=== PATIENT | male | born 1995 | race Caucasian/White ===

== ENCOUNTER 2016-08-24 15:30 | Outpatient (RCR) | payer BC ==
[2016-06-29 15:50] VITALS: BP 125/76
[2016-06-29] MEDS: VEDOLIZUMAB 300 MG/NS 250 ML IVPB IV SCH ×2 (16:40)
[2016-06-29 17:30] VITALS: BP 125/76
[2016-07-13] MEDS: VEDOLIZUMAB 300 MG/NS 250 ML IVPB IV SCH ×2 (16:20)
[2016-07-13 16:26] VITALS: BP 138/88
[~2016-08-24] VITALS: Ht 182.2 cm; Wt 92.1 kg
[~2016-08-24 15:30] MED LIST: BUDE3CAP5 PO; METH2.5T PO; OMEP40CA36 PO; PRD20T PO
[2016-08-24 17:01] VITALS: BP 122/75
== END 2016-09-27 | disposition home or self-care (01) ==
LOC: SDC 15:30
PROVIDERS: ATTEND Internal Medicine Gastroenterology
DX: K50.90 Crohn's disease, unspecified, without complications (principal)
CPT/HCPCS: 96365

== ENCOUNTER 2016-10-19 15:54 | Outpatient (RCR) | payer BC ==
[~2016-10-19] VITALS: Ht 182.2 cm; Wt 92.1 kg
--- OUTSIDE RECORDS SUMMARY | 2016-10-19 15:58 | XMS REPORT | Continuity of Care Document ---
Author Author [facility] Organization [facility] Address Unknown Phone Unavailable Care Team Providers Care Sweeper Driver Name Role Phone VISHAL LAMBERT DO PCP Insurance Providers Payer Name Policy Number Subscriber Name Relationship [facility] [id number] Alexx Jimenez 20 Father Advance Directives Directive Response Recorded Date/Time Advance Directives No 08/24/16 5:01pm Organ Donor No 08/24/16 5:01pm Resuscitation Status Full Code 08/24/16 5:01pm Problems No problem information available. Medications Current Home Medications Medication Dose Units Route Directions Days/Qty Instructions Start Date Methotrexate Sodium 2.5 Mg 5 Mg Oral Weekly 06/29/16 Prednisone 20 Mg 40 Mg Oral Daily 06/29/16 Budesonide 3 Mg 9 Mg Oral Daily 06/29/16 Omeprazole 40 Mg 40 Mg Oral Daily 06/29/16 Social History Social History Problem Response Recorded Date/Time Alcohol Use Rarely Uses 06/29/2016 4:15pm Recreational Drug Use No 06/29/2016 4:15pm Recent Foreign Travel No 06/29/2016 4:15pm Recent Infectious Disease Exposure No 06/29/2016 4:15pm Smoking Status Never a Smoker 06/29/2016 4:15pm Recent Hopitalizations No 06/29/2016 4:15pm Query Response Start Date Stop Date Smoking Status Never a Smoker Hospital Discharge Instructions No hospital discharge instructions. Plan of Care Prescriptions See Medication Section Functional Status No functional status results. Allergies, Adverse Reactions, Alerts No known allergies. Immunizations No immunization records. Vital Signs Acute Vital Signs Vital Response Date/Time Height 5 ft 11.75 in Weight 203 lb Body Mass Index 27.7 kg/m^2 Results No known relevant diagnostic tests, laboratory data and/or discharge summary. Procedures No known history of procedures. Encounters Encounter Location Arrival/Admit Date Discharge/Depart Date Attending Provider Discharged Recurring [facility] 08/24/16 3:30pm 11:59pm NICOLA PETERSON DO
[2016-10-19 16:00] VITALS: BP 116/82
[2016-10-19] MEDS ORDERED: VEDOLIZUMAB 300 MG/NS 250 ML IVPB IV SCH ×4 (16:15)
== END 2016-10-19 17:00 | disposition home or self-care (01) ==
LOC: SDC 15:54
PROVIDERS: ATTEND Internal Medicine Gastroenterology
DX: K50.90 Crohn's disease, unspecified, without complications (principal)
CPT/HCPCS: 96365

== ENCOUNTER → 2016-12-16 | Outpatient (CLI) | payer BC ==
[~2016-12-16] VITALS: Ht 182.2 cm; Wt 92.1 kg
[~2016-12-16] MED LIST changes: +VEDOLIZUMAB 300 MG/NS 250 ML IVPB IV SCH
[2016-12-16 14:30] VITALS: BP 126/92
== END ==
LOC: SDC 14:08
PROVIDERS: ATTEND Internal Medicine Gastroenterology
DX: K50.90 Crohn's disease, unspecified, without complications (principal)
CPT/HCPCS: 96365

== ENCOUNTER → 2017-02-16 | Outpatient (CLI) | payer BC ==
[~2017-02-16] VITALS: Ht 182.2 cm; Wt 92.1 kg
[2017-02-16 10:10] VITALS: BP 125/82
== END ==
LOC: SDC 10:06 → EDSTATUS 13:00
PROVIDERS: ATTEND Internal Medicine Gastroenterology
DX: K50.90 Crohn's disease, unspecified, without complications (principal)

== ENCOUNTER 2017-02-22 19:14 | Emergency (ER) | payer BC ==
[~2017-02-22] VITALS: Ht 182.9 cm; Wt 95.3 kg
[~2017-02-22 19:14] MED LIST changes: -VEDOLIZUMAB 300 MG/NS 250 ML IVPB IV SCH
[2017-02-22 19:47] LABS: BASOPHILS % (AUTO) 0 % (0-10); EOSINOPHILS # (AUTO) 0.2 10^3/uL (0.0-0.3); EOSINOPHILS % (AUTO) 2 % (0-10); LYMPHOCYTES # (AUTO) 1.6 X 10^3 (1.0-4.0); LYMPHOCYTES % (AUTO) 13 % (12-44); MEAN CORPUSCULAR HEMOGLOBIN 24 PG (25-34); MEAN CORPUSCULAR HGB CONC 33 G/DL (32-36); MEAN CORPUSCULAR VOLUME 75 FL (80-99); MONOCYTES # (AUTO) 0.8 X 10^3 (0.0-1.0); MONOCYTES % (AUTO) 7 % (0-12); NEUTROPHILS # (AUTO) 9.7 X 10^3 (1.8-7.8); NEUTROPHILS % (AUTO) 79 % (42-75); PLATELET COUNT 308 10^3/uL (130-400); RED BLOOD COUNT 5.63 10^6/uL (4.35-5.85); RED CELL DISTRIBUTION WIDTH 15.7 % (10.0-14.5); WHITE BLOOD COUNT 12.4 10^3/uL (4.3-11.0)
[2017-02-22 19:48] LABS: BILIRUBIN,URINE NEGATIVE (NEGATIVE); KETONES,URINE NEGATIVE (NEGATIVE); LEUKOCYTE ESTERASE ,URINE 1+ (NEGATIVE); NITRITE,URINE NEGATIVE (NEGATIVE); PH,URINE 6 (5-9); PROTEIN,URINE 1+ (NEGATIVE); UROBILINOGEN,URINE 1 MG/DL (NORMAL)
[2017-02-22 19:59] LABS: WBC,URINE 0-2 /HPF
[2017-02-22 20:05] LABS: ALANINE AMINOTRANSFERASE 43 U/L (0-55); ALBUMIN 4.2 G/DL (3.2-4.5); ANION GAP 11 MMOL/L (5-14); ASPARTATE AMINO TRANSFERASE 22 U/L (5-34); BILIRUBIN,TOTAL 0.5 MG/DL (0.1-1.0); BLOOD UREA NITROGEN 14 MG/DL (7-18); BUN/CREATININE RATIO 12; CALCIUM 9.8 MG/DL (8.5-10.1); CARBON DIOXIDE 26 MMOL/L (21-32); CHLORIDE 104 MMOL/L (98-107); CREATININE SERUM 1.16 MG/DL (0.60-1.30); GFR ESTIMATED > 60; GLUCOSE 103 MG/DL (70-105); POTASSIUM 3.9 MMOL/L (3.6-5.0); SODIUM 141 MMOL/L (135-145); TOTAL PROTEIN 7.9 G/DL (6.4-8.2)
[2017-02-22] MEDS ORDERED: IOHEXOL 350 MG/ML 100 ML (OMNIPAQUE 350) VIAL IV ONE (20:45)
[2017-02-22] MEDS ORDERED: NS 100 ML (IVPB) BAG IV ONE (20:45)
--- NOTE | 2017-02-22 21:53 | Diagnostic Imaging Report ---
PROCEDURE: CT abdomen and pelvis with contrast, rule out appendicitis. TECHNIQUE: Multiple contiguous axial images were obtained through the abdomen and pelvis after the administration of intravenous contrast. INDICATION: Left lower quadrant pain for 3 days. History of Crohn's. Previous anal fistula. COMPARISON with 04/27/2016. FINDINGS: The lung bases are clear. The liver appears normal. The gallbladder and bile ducts are normal. The pancreas is normal. The spleen is normal. The adrenal glands appear normal. The kidneys show symmetrical nephrogram effect. No hydronephrosis. Could not exclude small renal calculi as a noncontrasted study was not obtained. The aorta and abdominal vessels appear normal. The stomach is not distended. Small bowel is not dilated. There is noted long segment stenosis with thickening of the terminal ileum involving at least the distal 24-36 inches. There is diffuse edema surrounding the terminal ileum within the adjacent mesentery. There is no loculated abscess. No free air or free fluid. The colon shows normal stool and gas pattern. There are a few diverticula in the sigmoid colon. No intra-abdominal adenopathy of pathologic size. No evidence of the perirectal fistula with mesorectal fat planes appearing normal. IMPRESSION: The findings are consistent with diffuse Crohn's disease of the ileum. The most severe change is noted in the terminal ileum with thickening of the bowel wall and considerable adjacent mesenteric edema. No evidence of obstruction at this time. No free air or free fluid. There is mesenteric adenopathy again noted, as reported previously, though this is less prominent on today's exam. Dictated by: Dictated on workstation # [id number]
[2017-02-22] MEDS ORDERED: metroNIDAZOLE 500 MG (FLAGYL) TAB PO ONE (22:15)
[2017-02-22] MEDS ORDERED: CIPROFLOXACIN 500 MG (CIPRO) TABLET PO ONE (22:15)
[2017-02-22] MEDS ORDERED: methylPREDNISolone 125 MG (Solu-MEDROL) VIAL IVP ONE (22:15)
[2017-02-22] MEDS ORDERED: PRD20T PO (22:26)
[2017-02-22] MEDS ORDERED: CIPR-225 PO (22:26)
[2017-02-22] MEDS ORDERED: HYDR-3812 PO (22:26)
[2017-02-22] MEDS ORDERED: METR500T PO (22:26)
--- NOTE | 2017-02-22 22:27 | ED Abdominal Pain ---
General Chief Complaint: Abdominal/GI Problems Stated Complaint: RLQ PAIN Nursing Triage Note: RLQ ABDOMINAL PAIN Sepsis Screen: No Definite Risk Source of Information: Patient Exam Limitations: No Limitations History of Present Illness Time Seen By Provider: 19:18 Initial Comments Patient presents to the emergency room with complaints of right lower quadrant pain since February 19. He does have a history of Crohn's disease. He has chronic diarrhea associated with his Crohn's. He denies any fever. He does have some pain with walking, riding his motorcycle, and sneezing. Pain is mild at rest but is 9/10 with palpation. He has a past medical history of anal fistula. Dr. Lambert is his primary care provider. Dr. Andres is his website designer. Allergies and Home Medications Allergies Coded Allergies: No Known Drug Allergies (Unverified , 06/29/16) Home Medications Budesonide 3 Mg Capdr...er, 9 MG PO DAILY, (Reported) Ciprofloxacin HCl 500 Mg Tablet, 500 MG PO BID, #14 Prescribed by: JIAN KRAMER on 02/22/176 Hydrocodone/Acetaminophen 1 Each Tablet, 1 EACH PO Q4H PRN for PAIN, #10 Prescribed by: JIAN KRAMER on 02/22/176 Methotrexate Sodium 2.5 Mg Tablet, 5 MG PO WEEK, (Reported) Metronidazole 500 Mg Tablet, 500 MG PO TID, #20 Prescribed by: JIAN KRAMER on 02/22/176 Omeprazole 40 Mg Capsule.dr, 40 MG PO DAILY, (Reported) Prednisone 20 Mg Tab, 60 MG PO DAILY, #15 Prescribed by: JIAN KRAMER on 02/22/17 2226 Review of Systems Constitutional: no symptoms reported EENTM: No Symptoms Reported Respiratory: No Symptoms Reported Cardiovascular: No Symptoms Reported Gastrointestinal: See HPI Genitourinary: No Symptoms Reported Musculoskeletal: no symptoms reported Skin: no symptoms reported Psychiatric/Neurological: No Symptoms Reported Endocrine: No Symptoms Reported Past Rtdtfyp-Pymxno-Tqzhuy Hx Patient Social History Alcohol Use: Denies Use Recreational Drug Use: No Smoking Status: Never a Smoker 2nd Hand Smoke Exposure: No Recent Foreign Travel: No Contact w/Someone Who Travel: No Recent Infectious Disease Expo: No Recent Hopitalizations: No Immunizations Up To Date Tetanus Booster (TDap): Unknown Seasonal Allergies Seasonal Allergies: No Surgeries HX Surgeries: Yes (anal fistula) Respiratory Hx Respiratory Disorders: No Cardiovascular Hx Cardiac Disorders: No Neurological Hx Neurological Disorders: No Reproductive System Hx Reproductive Disorders: No Genitourinary Hx Genitourinary Disorders: No Gastrointestinal Hx Gastrointestinal Disorders: Yes Gastrointestinal Disorders: Crohns Disease Musculoskeletal Hx Musculoskeletal Disorders: No Endocrine Hx Endocrine Disorders: No HEENT HX ENT Disorders: No Cancer Hx Cancer: No Psychosocial Hx Psychiatric Problems: No Integumentary HX Skin/Integumentary Disorder: No Blood Transfusions Hx Blood Disorders: No Physical Exam Vital Signs VS - Last 72 Hours, by Label 02/22/17 02/22/17 19:30 22:33 Temp 97.7 98.1 Pulse 85 72 Resp 18 18 B/P (MAP) 147/87 Pulse Ox 97 100 O2 Delivery Room Air Capillary Refill : Less Than 3 Seconds General Appearance: WD/WN, no apparent distress HEENT: PERRL/EOMI, normal ENT inspection, pharynx normal Neck: normal inspection Respiratory: lungs clear, normal breath sounds, no respiratory distress, no accessory muscle use Cardiovascular: regular rate, rhythm, no edema, no murmur Gastrointestinal: normal bowel sounds, soft, rebound, tenderness (right lower quadrant), other (positive psoas and Rovsing's) Extremities: normal inspection, no pedal edema Back: normal inspection, no CVA tenderness 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, no motor/sensory deficits, alert, normal mood/affect, oriented x 3 Skin: normal color, warm/dry Progress/Results/Core Measures Results/Orders Lab Results Laboratory Tests Test 02/22/17 19:35 02/22/17 19:40 Range/Units Urine Color YELLOW Urine Clarity CLEAR Urine pH 6 5-9 Urine Specific [place] 1.025 H 1.016-1.022 Urine Protein 1+ H NEGATIVE Urine Glucose (UA) NEGATIVE NEGATIVE Urine Ketones NEGATIVE NEGATIVE Urine Nitrite NEGATIVE NEGATIVE Urine Bilirubin NEGATIVE NEGATIVE Urine Urobilinogen 1 NORMAL MG/DL Urine Leukocyte Esterase 1+ H NEGATIVE Urine RBC (Auto) NEGATIVE NEGATIVE Urine RBC NONE /HPF Urine WBC 0-2 /HPF Urine Crystals NONE /LPF Urine Bacteria NONE /HPF Urine Casts NONE /LPF Urine Mucus SMALL H /LPF Urine Culture Indicated NO White Blood Count 12.4 H 4.3-11.0 10^3/uL Red Blood Count 5.63 4.35-5.85 10^6/uL Hemoglobin 13.7 13.3-17.7 G/DL Hematocrit 42 40-54 % Mean Corpuscular Volume 75 L 80-99 FL Mean Corpuscular Hemoglobin 24 L 25-34 PG Mean Corpuscular Hemoglobin Concent 33 32-36 G/DL Red Cell Distribution Width 15.7 H 10.0-14.5 % Platelet Count 308 130-400 10^3/uL Mean Platelet Volume 10.0 7.4-10.4 FL Neutrophils (%) (Auto) 79 H 42-75 % Lymphocytes (%) (Auto) 13 12-44 % Monocytes (%) (Auto) 7 0-12 % Eosinophils (%) (Auto) 2 0-10 % Basophils (%) (Auto) 0 0-10 % Neutrophils # (Auto) 9.7 H 1.8-7.8 X 10^3 Lymphocytes # (Auto) 1.6 1.0-4.0 X 10^3 Monocytes # (Auto) 0.8 0.0-1.0 X 10^3 Eosinophils # (Auto) 0.2 0.0-0.3 10^3/uL Basophils # (Auto) 0.0 0.0-0.1 10^3/uL Sodium Level 141 135-145 MMOL/L Potassium Level 3.9 3.6-5.0 MMOL/L Chloride Level 104 98-107 MMOL/L Carbon Dioxide Level 26 21-32 MMOL/L Anion Gap 11 5-14 MMOL/L Blood Urea Nitrogen 14 7-18 MG/DL Creatinine 1.16 0.60-1.30 MG/DL Estimat Glomerular Filtration Rate > 60 BUN/Creatinine Ratio 12 Glucose Level 103 70-105 MG/DL Calcium Level 9.8 8.5-10.1 MG/DL Total Bilirubin 0.5 0.1-1.0 MG/DL Aspartate Amino Transf (AST/SGOT) 22 5-34 U/L Alanine Aminotransferase (ALT/SGPT) 43 0-55 U/L Alkaline Phosphatase 68 40-136 U/L Total Protein 7.9 6.4-8.2 G/DL Albumin 4.2 3.2-4.5 G/DL My Orders Orders - JIAN SOTO MD Cbc With Automated Diff (6/5/17 19:18) Comprehensive Metabolic Panel (02/22/17 19:18) Ua Culture If Indicated (02/22/17 19:18) Saline Lock/Iv-Start (02/22/17 19:18) Ct Abd/Pelv W (Appendicitis) (02/22/17 20:33) Iohexol Injection (Omnipaque 350 Mg/Ml 1 (02/22/17 20:45) Ns (Ivpb) (Sodium Chloride 0.9% Ivpb Bag (02/22/17 20:45) Methylprednisolone Sod Succ (Solu-Medrol (02/22/17 22:15) Ciprofloxacin Tablet (Cipro Tablet) (02/22/17 22:15) Metronidazole Tablet (Flagyl Tablet) (02/22/17 22:15) Medications Given in ED Current Medications Medications Dose Ordered Sig/Sukumar Route Start Time Stop Time Status Last Admin Dose Admin Ciprofloxacin 500 mg ONCE ONCE PO 02/22/17 22:15 02/22/17 22:16 DC 02/22/17 22:14 500 MG Iohexol 100 ml ONCE ONCE IV 02/22/17 20:45 02/22/17 21:29 DC 02/22/17 20:48 100 ML Methylprednisolone Sodium Succinate 125 mg ONCE ONCE IVP 02/22/17 22:15 02/22/17 22:16 DC 02/22/17 22:15 125 MG Metronidazole 500 mg ONCE ONCE PO 02/22/17 22:15 02/22/17 22:16 DC 02/22/17 22:14 500 MG Sodium Chloride 100 ml ONCE ONCE IV 02/22/17 20:45 02/22/17 21:29 DC 02/22/17 20:48 100 ML Vital Signs/I&O Vital Sign - Last 12Hours 02/22/17 02/22/17 19:30 22:33 Temp 97.7 98.1 Pulse 85 72 Resp 18 18 B/P (MAP) 147/87 Pulse Ox 97 100 O2 Delivery Room Air Blood Pressure Mean: 107 Progress Note : Progress Note Patient was started on Solu-Medrol and given oral doses of Cipro and Flagyl to initiate treatment of acute Crohn's disease exacerbation. Follow-up with his website designer in the morning was recommended. Diagnostic Imaging Diagonstic Imaging: CT Plain Films/CT/US/NM/MRI: abdomen, pelvis Comments CT abdomen and pelvis viewed by me and report reviewed. See report below: NAME: MICHELLE JIMENEZ [facility] REC#: [id number] PT STATUS: REG ER : 1995 PHYSICIAN: JIAN SOTO MD ADMIT DATE: 02/22/17/ER Signed Date of Exam: 02/22/17 CT ABD/PELV W (APPENDICITIS) PROCEDURE: CT abdomen and pelvis with contrast, rule out appendicitis. TECHNIQUE: Multiple contiguous axial images were obtained through the abdomen and pelvis after the administration of intravenous contrast. INDICATION: Left lower quadrant pain for 3 days. History of Crohn's. Previous anal fistula. COMPARISON with 04/27/2016. FINDINGS: The lung bases are clear. The liver appears normal. The gallbladder and bile ducts are normal. The pancreas is normal. The spleen is normal. The adrenal glands appear normal. The kidneys show symmetrical nephrogram effect. No hydronephrosis. Could not exclude small renal calculi as a noncontrasted study was not obtained. The aorta and abdominal vessels appear normal. The stomach is not distended. Small bowel is not dilated. There is noted long segment stenosis with thickening of the terminal ileum involving at least the distal 24-36 inches. There is diffuse edema surrounding the terminal ileum within the adjacent mesentery. There is no loculated abscess. No free air or free fluid. The colon shows normal stool and gas pattern. There are a few diverticula in the sigmoid colon. No intra-abdominal adenopathy of pathologic size. No evidence of the perirectal fistula with mesorectal fat planes appearing normal. IMPRESSION: The findings are consistent with diffuse Crohn's disease of the ileum. The most severe change is noted in the terminal ileum with thickening of the bowel wall and considerable adjacent mesenteric edema. No evidence of obstruction at this time. No free air or free fluid. There is mesenteric adenopathy again noted, as reported previously, though this is less prominent on today's exam. Dictated by: Dictated on workstation # [id number] Dict: 02/22/172099 Trans: 02/22/172211 Interpreted by: AUTUMN URENA MD Electronically signed by: AUTUMN URENA MD 02/22/172211 Departure Impression Impression: Primary Impression: Exacerbation of Crohn's disease of small intestine Qualified Codes: K50.019 - Crohn's disease of small intestine with unspecified complications Additional Impression: Right lower quadrant pain Disposition: 01 HOME, SELF-CARE Condition: Improved Departure-Patient Inst. Decision time for Depature: 22:00 Referrals: VISHAL LAMBERT DO (PCP/Family) Primary Care Physician Patient Instructions: Clear Liquid Diet, Crohn's Disease (DC) Add. Discharge Instructions: Use your medications as prescribed. Follow-up with Dr. Andres as soon as possible. Dr. Andres may want to put you on a longer course of prednisone taper. Please ask about this when you call his office. Return to care if symptoms worsen. Clear liquid diet for the next 24 hours. Then gradually advance your diet with small quantities of bland food as tolerated. All discharge instructions reviewed with patient and/or family. Voiced understanding. Scripts Hydrocodone/Acetaminophen (Hydrocodon -Acetaminophen 5-325) 1 Each Tablet 1 EACH PO Q4H Y for PAIN, #10 TAB Prov: JIAN SOTO MD 02/22/17 Metronidazole (Flagyl) 500 Mg Tablet 500 MG PO TID, #20 TAB Prov: JIAN SOTO MD 02/22/17 Ciprofloxacin HCl (Cipro) 500 Mg Tablet 500 MG PO BID, #14 TAB Prov: JIAN SOTO MD 02/22/17 Prednisone (Prednisone) 20 Mg Tab 60 MG PO DAILY, #15 TAB Prov: JIAN SOTO MD 02/22/17 Copy Copies To 1: VISHAL LAMBERT JOSHUA T MD Feb 22, 2017 22:27
[2017-02-22 22:33] VITALS: BP 132/71
== END 2017-02-22 22:30 | disposition home or self-care (01) ==
LOC: EDUNIT# 19:14 → ER 19:17
DX: K50.00 Crohn's disease of small intestine without complications (principal); Z87.19 Personal history of other diseases of the digestive system
CPT/HCPCS: 36415; 74177; 80053; 81000; 85025

== ENCOUNTER → 2017-04-13 | Outpatient (CLI) | payer BC ==
[~2017-04-13] VITALS: Ht 182.9 cm; Wt 95.3 kg
[~2017-04-13] MED LIST changes: +CIPR-225 PO; +HYDR-3812 PO; +METR500T PO; +SULF1TAB35 PO; +VEDOLIZUMAB 300 MG/NS 250 ML IVPB IV SCH
[2017-04-13 15:55] VITALS: BP 123/74
== END ==
LOC: SDC 15:49
PROVIDERS: ATTEND Internal Medicine Gastroenterology
DX: K50.90 Crohn's disease, unspecified, without complications (principal)
CPT/HCPCS: 96365

== ENCOUNTER → 2017-06-11 | Outpatient (CLI) | payer BC ==
[~2017-06-11] VITALS: Ht 182.9 cm; Wt 95.3 kg
--- OUTSIDE RECORDS SUMMARY | 2017-06-11 15:43 | XMS REPORT | Continuity of Care Document ---
Demographics Preferred Language Unknown Marital Status Unknown Congregational Affiliation Unknown Race Unknown Ethnic Group Unknown Author Author [facility] Address Unknown Phone Unavailable Allergies Medications Problems Date Dx Coded Attending Type Code Diagnosis Diagnosed By 04/06/2012 V03.89 MENINGOCOCCAL DX 11/14/2012 V04.89 GARDASIL (HPV) DX 11/14/2012 V05.3 HEP A (PED/ADOL 2-DOSE) DX 11/14/2012 V06.1 TDAP DX Procedures Results Encounters ACCT No. Visit Date/Time Discharge Status Pt. Type Provider Facility Loc./Unit Complaint [id number] 11/14/2012 15:27:00 11/14/2012 23: 59:59 CLS Outpatient [id number] 11/14/2012 16:10:05 RECURRING
[2017-06-11 16:15] VITALS: BP 121/82
[2017-06-11 17:00] VITALS: BP 121/82
== END | disposition home or self-care (01) ==
LOC: SDC 15:40 → EDSTATUS 06-16 09:05
PROVIDERS: ATTEND Internal Medicine Gastroenterology
DX: K50.90 Crohn's disease, unspecified, without complications (principal)
CPT/HCPCS: 96365

== ENCOUNTER 2017-06-22 19:41 | Emergency (ER) | payer BC ==
[~2017-06-22] VITALS: Ht 182.9 cm; Wt 91.2 kg
[~2017-06-22 19:41] MED LIST changes: -SULF1TAB35 PO; -VEDOLIZUMAB 300 MG/NS 250 ML IVPB IV SCH
--- OUTSIDE RECORDS SUMMARY | 2017-06-22 19:47 | XMS REPORT | Continuity of Care Document ---
Demographics Preferred Language Unknown Marital Status Unknown Pentecostalism Affiliation Unknown Race Unknown Ethnic Group Unknown Author Author [facility] Address Unknown Phone Unavailable Allergies Medications Problems Date Dx Coded Attending Type Code Diagnosis Diagnosed By 04/06/2012 V03.89 MENINGOCOCCAL DX 11/14/2012 V04.89 GARDASIL (HPV) DX 11/14/2012 V05.3 HEP A (PED/ADOL 2-DOSE) DX 11/14/2012 V06.1 TDAP DX Procedures Results Encounters ACCT No. Visit Date/Time Discharge Status Pt. Type Provider Facility Loc./Unit Complaint [id number] 11/14/2012 15:27:00 11/14/2012 23: 59:59 CLS Outpatient [id number] 11/14/2012 16:10:05 RECURRING
[2017-06-22 19:49] VITALS: BP 144/85
[2017-06-22] MEDS ORDERED: LIDOCAINE/EPI 2% 1:100,00 (XYLOCAINE) 20 ML VIAL INJ ONE (20:00)
[2017-06-22] MEDS ORDERED: RX-TRIMETH/SULFA. 160-800 MG (BACTRIM DS) TAB PPK#2 PO STA (21:57)
[2017-06-22] MEDS ORDERED: TETANUS,DIPTH,PERTUSS P/F (BOOSTRIX) 0.5 ML VIAL IM ONE (22:00)
[2017-06-22] MEDS ORDERED: SULF1TAB35 PO (22:01)
--- NOTE | 2017-06-22 22:01 | ED Upper Extremity ---
General Chief Complaint: Laceration Stated Complaint: LEFT ARM INJ Source: patient History of Present Illness Time seen by provider: 19:50 Initial Comments PT ARRIVES VIA POV FROM HOME PT STATES HE WAS CARRYING [place] + TILE AND A TILE BROKE AND CUT HIS LEFT ARM --MEDIAL ASPECT, NEAR AC SPACE NO PARESTHESIAS OR MOTOR DEFICITS PT IS RIGHT HANDED NO PRIOR INJURY TO THIS ARM Allergies and Home Medications Allergies Coded Allergies: No Known Drug Allergies (Unverified , 06/29/16) Home Medications Budesonide 3 Mg Capdr...er, 9 MG PO DAILY, (Reported) Ciprofloxacin HCl 500 Mg Tablet, 500 MG PO BID, #14 Prescribed by: JIAN KRAMER on 02/22/172225 Hydrocodone/Acetaminophen 1 Each Tablet, 1 EACH PO Q4H PRN for PAIN, #10 Prescribed by: JIAN KRAMER on 02/22/176 Methotrexate Sodium 2.5 Mg Tablet, 5 MG PO WEEK, (Reported) Metronidazole 500 Mg Tablet, 500 MG PO TID, #20 Prescribed by: JIAN KRAMER on 02/22/172225 Omeprazole 40 Mg Capsule.dr, 40 MG PO DAILY, (Reported) Prednisone 20 Mg Tab, 60 MG PO DAILY, #15 Prescribed by: JIAN KRAMER on 02/22/176 Sulfamethoxazole/Trimethoprim 1 Each Tablet, 1 EACH PO BID, #20 Prescribed by: LATIA WHITE on 06/22/171 Constitutional: no symptoms reported Musculoskeletal: see HPI Skin: see HPI Psychiatric/Neurological: No Symptoms Reported Past Jhjpsvg-Gzqumz-Qofhis Hx Patient Social History 2nd Hand Smoke Exposure: No Recent Foreign Travel: No Contact w/Someone Who Travel: No Recent Hopitalizations: No Immunizations Up To Date Tetanus Booster (TDap): More than 5yrs Seasonal Allergies Seasonal Allergies: No Surgeries History of Surgeries: Yes ("FISTULA'S TIED OFF."; COLONOSCOPIES) Respiratory History of Respiratory Disorde: No Cardiovascular History of Cardiac Disorders: No Neurological History of Neurological Disord: No Reproductive System Hx Reproductive Disorders: No Genitourinary History of Genitourinary Disor: No Gastrointestinal History of Gastrointestinal Di: Yes (RECTAL FISTULA VS FISSURE) Gastrointestinal Disorders: Crohns Disease Musculoskeletal History of Musculoskeletal Dis: No Endocrine History of Endocrine Disorders: No HEENT History of HEENT Disorders: No Cancer History of Cancer: No Psychosocial History of Psychiatric Problem: No Integumentary History of Skin or Integumenta: No Blood Transfusions History of Blood Disorders: No Physical Exam Vital Signs Capillary Refill : General Appearance: WD/WN, no apparent distress Shoulder: normal inspection Elbow/Forearm: Left (SUPERFICIAL SUB Q LACERATION TO MEDIAL ASPECT OF LEFT FOREARM, NEAR AC SPACE, SUPERFICIAL ABRASIONS ADJACENT TO LACERATION. 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, no motor/sensory deficits, alert, normal mood/affect, oriented x 3 Skin: normal color, warm/dry, other (LACERATION NOTED ABOVE) Laceration Repair : Other Wound Location LEFT FOREARM Wound Length (cm): 10 Wound's Depth, Shape: superficial, irregular, sub Q Wound Explored: no foreign body removed Irrigated w/ Saline (ccs): 1000 Betadine Prep?: No (BETASEPT) Anesthesia: Lidocaine w/ Epi (2%) Staple Repair: Stapler 35W (#18) Sterile Dressing Applied?: Yes Progress/Results/Core Measures Results/Orders My Orders Orders - LATIA WHITE DO Lidocaine/Epi 2% 1:100,000 (Xylocaine/Ep (06/22/17 20:00) Dipht,Pertuss(Acell),Tet Adult (Boostrix (06/22/17 22:00) Rx-Trimeth/Sulfameth Ds Tab (Rx-Bactrim/ (06/22/17 21:57) Wound Dressing-Ed (06/22/17 21:57) Medications Given in ED Current Medications Medications Dose Ordered Sig/Sukumar Route Start Time Stop Time Status Last Admin Dose Admin Diphtheria/ Tetanus/Acell Pertussis 0.5 ml ONCE ONCE IM 06/22/17 22:00 06/22/17 22:01 DC 06/22/17 22:16 0.5 ML Lidocaine/ Epinephrine 20 ml ONCE ONCE INJ 06/22/17 20:00 06/22/17 20:01 DC 06/22/17 20:09 20 ML Departure Impression Impression: Primary Impression: LACERATION OF LEFT ARM Additional Impression: Jrlxhtgdxo-qhuuyzsyf-bctjubd (DPT) vaccination administered at current visit Disposition: HOME, SELF-CARE Condition: Stable Departure-Patient Inst. Referrals: VISHAL LAMBERT DO (PCP/Family) Primary Care Physician Patient Instructions: Laceration Repair With Vidal (DC), Diphtheria and Tetanus Toxoids, and Acellular Pertussis Vaccine Add. Discharge Instructions: CLEAN WOUND TWICE A DAY WITH ANTIBACTERIAL SOAP AND WATER, OTHERWISE KEEP CLEAN AND DRY TYLENOL AND MOTRIN NEEDED FOR PAIN FOLLOW UP IN 10-14 DAYS FOR STAPLE REMOVAL--RETURN TO ER FOR REMOVAL All discharge instructions reviewed with patient and/or family. Voiced understanding. Scripts Sulfamethoxazole/Trimethoprim (Bactrim Ds Tablet) 1 Each Tablet 1 EACH PO BID, #20 TAB Prov: LATIA WHITE DO 06/22/17 Images Extremities-Upper 1 - Laceration LATIA WHITE DO Jun 22, 2017 22:01
== END 2017-06-22 22:27 | disposition home or self-care (01) ==
LOC: EDUNIT# 19:41 → ER 19:42
DX: Z23 Encounter for immunization; W26.8XXA Contact with other sharp object(s), not elsewhere classified, initial encounter; Z87.19 Personal history of other diseases of the digestive system; S51.812A Laceration without foreign body of left forearm, initial encounter
CPT/HCPCS: 12015; 90471; 90715

== ENCOUNTER → 2017-08-20 | Outpatient (CLI) | payer BC ==
[~2017-08-20] VITALS: Ht 182.9 cm; Wt 91.2 kg
[~2017-08-20] MED LIST changes: +SULF1TAB35 PO; +VEDOLIZUMAB 300 MG/NS 250 ML IVPB IV SCH
[2017-08-20 16:54] VITALS: BP 130/89
[2017-08-20 17:10] VITALS: BP 130/89
[2017-08-20 17:19] VITALS: BP 130/89
[2017-08-20 17:21] VITALS: BP 130/89
[2017-08-20 17:22] VITALS: BP 130/89
== END ==
LOC: SDC 16:04
PROVIDERS: ATTEND Internal Medicine Gastroenterology
DX: K50.90 Crohn's disease, unspecified, without complications (principal)

== ENCOUNTER → 2017-10-25 | Outpatient (CLI) | payer BC ==
[~2017-10-25] VITALS: Ht 182.9 cm; Wt 90.7 kg
[~2017-10-25] MED LIST changes: +ACHD5005 PO; -HYDR-3812 PO
[2017-10-25 16:46] VITALS: BP 127/81
[2017-10-25 17:17] VITALS: BP 127/81
== END ==
LOC: SDC 15:42
PROVIDERS: ATTEND Internal Medicine Gastroenterology
DX: K50.90 Crohn's disease, unspecified, without complications (principal)
CPT/HCPCS: 96365

== ENCOUNTER 2018-02-18 15:36 | Outpatient (RCR) | payer BC ==
[2017-12-24] MEDS: VEDOLIZUMAB 300 MG/NS 250 ML IVPB IV SCH ×2 (16:40)
[2017-12-24 17:21] VITALS: BP 129/78
[~2018-02-18] VITALS: Ht 182.9 cm; Wt 90.7 kg
[~2018-02-18 15:36] MED LIST changes: -METH2.5T PO; +MTX2.5T PO; -VEDOLIZUMAB 300 MG/NS 250 ML IVPB IV SCH
[2018-02-18] MEDS: VEDOLIZUMAB 300 MG/NS 250 ML IVPB IV SCH ×2 (16:07)
[2018-02-18 16:44] VITALS: BP 141/86
== END 2018-03-24 | disposition home or self-care (01) ==
LOC: SDC 15:36
PROVIDERS: ATTEND Internal Medicine Gastroenterology
DX: K50.90 Crohn's disease, unspecified, without complications (principal)
CPT/HCPCS: 96365

== ENCOUNTER 2018-04-15 16:00 | Outpatient (RCR) | payer BC ==
[~2018-04-15] VITALS: Ht 182.9 cm; Wt 90.7 kg
[2018-04-15] MEDS ORDERED: VEDOLIZUMAB 300 MG/NS 250 ML IVPB IV ONE ×2 (16:30)
[2018-04-15 17:20] VITALS: BP 136/86
== END 2018-04-19 | disposition home or self-care (01) ==
LOC: SDC 16:00
PROVIDERS: ATTEND Internal Medicine Gastroenterology
DX: K50.90 Crohn's disease, unspecified, without complications (principal)
CPT/HCPCS: 96365

== ENCOUNTER → 2018-06-10 | Outpatient (CLI) | payer BC ==
[~2018-06-10] VITALS: Ht 182.9 cm; Wt 90.7 kg
[~2018-06-10] MED LIST changes: +VEDOLIZUMAB 300 MG/NS 250 ML IVPB IV SCH
[2018-06-10 16:56] VITALS: BP 118/71
[2018-06-10 17:10] VITALS: BP 118/71
== END ==
LOC: SDC 15:54
PROVIDERS: ATTEND Internal Medicine Gastroenterology
DX: K50.90 Crohn's disease, unspecified, without complications (principal)

== ENCOUNTER → 2018-08-12 | Day surgery (SDC) | payer BC ==
[~2018-08-12] VITALS: Ht 182.9 cm; Wt 90.7 kg
[2018-08-12 16:51] VITALS: BP 131/86
== END | disposition home or self-care (01) ==
LOC: SDC 15:18
PROVIDERS: ATTEND Internal Medicine Gastroenterology
DX: K50.90 Crohn's disease, unspecified, without complications (principal)
CPT/HCPCS: 96365; 96374; J3380

== ENCOUNTER → 2018-10-10 | Outpatient (CLI) | payer BC ==
[~2018-10-10] VITALS: Ht 182.9 cm; Wt 90.7 kg
[2018-10-10 16:30] VITALS: BP 134/78
== END ==
LOC: SDC 15:15
PROVIDERS: ATTEND Internal Medicine Gastroenterology
DX: K50.90 Crohn's disease, unspecified, without complications (principal)
CPT/HCPCS: J3380

== ENCOUNTER → 2018-12-09 | Outpatient (CLI) | payer BC, OTHER ==
[~2018-12-09] VITALS: Ht 182.9 cm; Wt 90.7 kg
[2018-12-09 16:39] VITALS: BP 121/81
== END ==
LOC: SDC 15:17
PROVIDERS: ATTEND Internal Medicine Gastroenterology
DX: K50.90 Crohn's disease, unspecified, without complications (principal)
CPT/HCPCS: 96365; J3380

== ENCOUNTER → 2019-02-03 | Outpatient (CLI) | payer BC, OTHER ==
[~2019-02-03] VITALS: Ht 182.9 cm; Wt 90.7 kg
[2019-02-03 15:51] VITALS: BP 122/84
== END ==
LOC: SDC 14:40
PROVIDERS: ATTEND Internal Medicine Gastroenterology
DX: K50.90 Crohn's disease, unspecified, without complications (principal)
CPT/HCPCS: 96365; J3380

== ENCOUNTER → 2019-04-28 | Outpatient (CLI) | payer BC ==
[~2019-04-28] VITALS: Ht 182.9 cm; Wt 90.7 kg
[2019-04-28 15:25] VITALS: BP 128/70
== END ==
LOC: SDC 15:10
PROVIDERS: ATTEND Internal Medicine Gastroenterology
DX: K50.90 Crohn's disease, unspecified, without complications (principal)
CPT/HCPCS: 96365; J3380

== ENCOUNTER → 2019-06-23 | Outpatient (CLI) | payer BC ==
[2019-06-23 16:35] VITALS: BP 124/82
== END ==
LOC: SDC 15:17
PROVIDERS: ATTEND Internal Medicine Gastroenterology
DX: Z51.81 Encounter for therapeutic drug level monitoring (principal)
CPT/HCPCS: J3380

== ENCOUNTER 2020-04-03 18:37 | Emergency (ER) | payer BC ==
[~2020-04-03] VITALS: Ht 182.9 cm; Wt 108.9 kg
[~2020-04-03 18:37] MED LIST changes: +OMEP40CA27 PO; -OMEP40CA36 PO; -VEDOLIZUMAB 300 MG/NS 250 ML IVPB IV SCH
--- NOTE | 2020-04-03 18:48 | ED Abdominal Pain ---
General Chief Complaint: Abdominal/GI Problems Stated Complaint: RLQ PAIN, FEVER Nursing Triage Note: PT AMBULATE TO ROOM 06 WITH C/O RUQ ABD PAIN. Sepsis Screen: No Definite Risk Source of Information: Patient Exam Limitations: No Limitations History of Present Illness Date Seen by Provider: Apr 03, 2020 Time Seen by Provider: 18:48 Initial Comments To ER with right-sided abdominal pain for the past 2 weeks. History of Crohn's. Not currently on any medication for that. He states he went into remission about 10 months ago, did an additional 6 months of medication for it and his mosaic technician (Dr. Andres) took him off of it after 6 months of remission. He has had no bloody stools. No nausea vomiting or fevers until today. At that time he developed fevers up to 101 and pain that was sharper and more specific to the right lower abdomen. Timing/Duration: Getting Worse, Intermittent Severity/Quality: Moderate Location: RUQ, RLQ Radiation: No Radiation Activities at Onset: None Allergies and Home Medications Allergies Coded Allergies: No Known Drug Allergies (Unverified , 06/29/16) Home Medications Budesonide 3 Mg Capdr...er, 9 MG PO DAILY, (Reported) Ciprofloxacin HCl 500 Mg Tablet, 500 MG PO BID Prescribed by: JIAN KRAMER on 02/22/172225 Hydrocodone Bit/Acetaminophen 1 Each Tablet, 1 EACH PO Q4H PRN for PAIN Prescribed by: JIAN KRAMER on 02/22/172225 Methotrexate Tablet 2.5 Mg Tablet, 5 MG PO WEEK, (Reported) Metronidazole 500 Mg Tablet, 500 MG PO TID Prescribed by: JIAN KRAMER on 02/22/172225 Omeprazole 40 Mg Capsule.dr, 40 MG PO DAILY, (Reported) Prednisone 20 Mg Tab, 60 MG PO DAILY Prescribed by: JIAN KRAMER on 02/22/172225 Sulfamethoxazole/Trimethoprim 1 Each Tablet, 1 EACH PO BID Prescribed by: LATIA WHITE on 06/22/172200 Patient Home Medication List Home Medication List Reviewed: Yes Review of Systems Review of Systems Constitutional: see HPI, chills, fever EENTM: No Symptoms Reported Respiratory: No Symptoms Reported; Denies Cough, Denies Shortness of Air Cardiovascular: Denies Chest Pain Gastrointestinal: See HPI, Abdominal Pain; Denies Diarrhea, Denies Nausea Genitourinary: No Symptoms Reported Musculoskeletal: no symptoms reported Skin: no symptoms reported Psychiatric/Neurological: No Symptoms Reported Hematologic/Lymphatic: No Symptoms Reported Past Ltkhwbv-Pfprxr-Vminsv Hx Patient Social History 2nd Hand Smoke Exposure: No Recent Foreign Travel: No Contact w/Someone Who Travel: No Recent Infectious Disease Expo: No Recent Hopitalizations: No Immunizations Up To Date Tetanus Booster (TDap): More than 5yrs Seasonal Allergies Seasonal Allergies: No Past Medical History Surgeries: Yes ("FISTULA'S TIED OFF."; COLONOSCOPIES) Respiratory: No Currently Using CPAP: No Currently Using BIPAP: No Cardiac: No Neurological: No Reproductive Disorders: No Genitourinary: No Gastrointestinal: Yes (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 0.0oz. 90.791945ti; 32.00 BMI Method:Stated General Appearance: WD/WN, no apparent distress, other (temperature 100.6 no distress) HEENT: PERRL/EOMI, normal ENT inspection Neck: non-tender, full range of motion Respiratory: no respiratory distress, no accessory muscle use Cardiovascular: no JVD, no murmur, tachycardia Gastrointestinal: normal bowel sounds, soft, tenderness Extremities: normal range of motion, non-tender Neurologic/Psychiatric: alert, normal mood/affect, oriented x 3 Skin: normal color, warm/dry Progress/Results/Core Measures Results/Orders Lab Results Laboratory Tests Test 04/03/20 18:45 04/03/20 18:51 Range/Units White Blood Count 13.2 H 4.3-11.0 10^3/uL Red Blood Count 5.69 4.35-5.85 10^6/uL Hemoglobin 14.7 13.3-17.7 G/DL Hematocrit 43 40-54 % Mean Corpuscular Volume 76 L 80-99 FL Mean Corpuscular Hemoglobin 26 25-34 PG Mean Corpuscular Hemoglobin Concent 34 32-36 G/DL Red Cell Distribution Width 12.9 10.0-14.5 % Platelet Count 413 H 130-400 10^3/uL Mean Platelet Volume 9.6 7.4-10.4 FL Neutrophils (%) (Auto) 72 42-75 % Lymphocytes (%) (Auto) 17 12-44 % Monocytes (%) (Auto) 9 0-12 % Eosinophils (%) (Auto) 1 0-10 % Basophils (%) (Auto) 0 0-10 % Neutrophils # (Auto) 9.5 H 1.8-7.8 X 10^3 Lymphocytes # (Auto) 2.2 1.0-4.0 X 10^3 Monocytes # (Auto) 1.2 H 0.0-1.0 X 10^3 Eosinophils # (Auto) 0.1 0.0-0.3 10^3/uL Basophils # (Auto) 0.0 0.0-0.1 10^3/uL Sodium Level 138 135-145 MMOL/L Potassium Level 3.7 3.6-5.0 MMOL/L Chloride Level 102 98-107 MMOL/L Carbon Dioxide Level 23 21-32 MMOL/L Anion Gap 13 5-14 MMOL/L Blood Urea Nitrogen 11 7-18 MG/DL Creatinine 1.35 H 0.60-1.30 MG/DL Estimat Glomerular Filtration Rate > 60 BUN/Creatinine Ratio 8 Glucose Level 106 H 70-105 MG/DL Calcium Level 9.4 8.5-10.1 MG/DL Corrected Calcium 9.2 8.5-10.1 MG/DL Total Bilirubin 0.4 0.1-1.0 MG/DL Aspartate Amino Transf (AST/SGOT) 21 5-34 U/L Alanine Aminotransferase (ALT/SGPT) 46 0-55 U/L Alkaline Phosphatase 96 40-136 U/L C-Reactive Protein High Sensitivity 8.53 H 0.00-0.50 MG/DL Total Protein 8.4 H 6.4-8.2 GM/DL Albumin 4.2 3.2-4.5 GM/DL Urine Color YELLOW Urine Clarity CLEAR Urine pH 7.0 5-9 Urine Specific Lyons 1.020 1.016-1.022 Urine Protein NEGATIVE NEGATIVE Urine Glucose (UA) NEGATIVE NEGATIVE Urine Ketones NEGATIVE NEGATIVE Urine Nitrite NEGATIVE NEGATIVE Urine Bilirubin NEGATIVE NEGATIVE Urine Urobilinogen 0.2 < = 1.0 MG/DL Urine Leukocyte Esterase NEGATIVE NEGATIVE Urine RBC (Auto) TRACE-I NEGATIVE Urine RBC RARE /HPF Urine WBC NONE /HPF Urine Squamous Epithelial Cells RARE /HPF Urine Crystals NONE /LPF Urine Bacteria NEGATIVE /HPF Urine Casts NONE /LPF Urine Mucus SMALL H /LPF Urine Culture Indicated NO My Orders Orders - KELECHI ELLIOTT AUTOMOTIVE PAINTER Cbc With Automated Diff (04/03/20 18:46) Comprehensive Metabolic Panel (04/03/20 18:46) Hs C Reactive Protein (04/03/20 18:46) Ua Culture If Indicated (04/03/20 18:46) Ed Iv/Invasive Line Start (04/03/20 18:46) Ct Abd/Pelv W (Appendicitis) (04/03/20 18:46) Ketorolac Injection (Toradol Injection) (04/03/20 19:00) Ns Iv 1000 Ml (Sodium Chloride 0.9%) (04/03/20 19:00) Iohexol Injection (Omnipaque 350 Mg/Ml 1 (04/03/20 19:00) Di Iv Start (Assessment) .IV start (04/03/20 18:53) Received Contrast (Hold Metformin- Contr (04/03/20 19:00) Sodium Chloride Flush (Catheter Flush Sy (04/03/20 19:00) Ns (Ivpb) (Sodium Chloride 0.9% Ivpb Bag (04/03/20 19:00) Rocephin 1 Gm Iv (1x Dose) (04/03/20 19:45) Metronidazole Tablet (Flagyl Tablet) (04/03/20 19:45) Methylprednisolone Sod Succ (Solu-Medrol (04/03/20 19:45) Medications Given in ED Current Medications Medications Dose Ordered Sig/Sukumar Route Start Time Stop Time Status Last Admin Dose Admin Iohexol 100 ml ONCE ONCE IV 04/03/20 19:00 04/03/20 19:01 DC 04/03/20 19:15 100 ML Ketorolac Tromethamine 15 mg ONCE ONCE IVP 04/03/20 19:00 04/03/20 19:01 DC 04/03/20 18:57 15 MG Sodium Chloride 10 ml NEEDED PRN IV 04/03/20 19:00 04/03/20 19:15 10 ML Sodium Chloride 100 ml ONCE ONCE IV 04/03/20 19:00 04/03/20 19:01 DC 04/03/20 19:15 100 ML Vital Signs/I&O 04/03/20 18:42 Temp 38.1 Pulse 112 Resp 18 B/P (MAP) 155/98 (117) O2 Delivery Room Air Blood Pressure Mean: 117 Diagnostic Imaging Diagonstic Imaging: CT Plain Films/CT/US/NM/MRI: abdomen, pelvis Comments NAME: MICHELLE JIMENEZ [facility] REC#: [id number] PT STATUS: REG ER : 1995 PHYSICIAN: KELECHI ELLIOTT APRN ADMIT DATE: 04/03/20/ER Draft Date of Exam:04/03/20 CT ABD/PELV W (APPENDICITIS) PROCEDURE: CT abdomen and pelvis with contrast, rule out appendicitis. TECHNIQUE: Multiple contiguous axial images were obtained through the abdomen and pelvis after the administration of intravenous contrast. All CT scans use one or more of the following dose optimizing techniques: automated exposure control, MA and/or KvP adjustment based on patient size and exam type or iterative reconstruction. INDICATION: Right lower quadrant pain. FINDINGS: Heart size is normal. The lung bases are clear. Liver is normal in size and without focal lesions. Gallbladder is contracted. There is no biliary ductal dilatation. Spleen is normal. Pancreas and adrenal glands are unremarkable. Kidneys are normal in appearance. Aorta is nonaneurysmal. There is some focal inflammatory change and mucosal thickening about the distal small bowel. The appendix is normal. There is no abnormal fluid collection appreciated to suggest an abscess. There is no free air. There is no pelvic mass or adenopathy. Bladder is decompressed. The osseous structures are unremarkable. IMPRESSION: 1. Findings compatible with inflammatory bowel disease, likely Crohn's, of the distal ileum. There is no CT evidence of appendicitis or abscess. There is no free air or bowel obstruction. 2. No other acute abnormality in the abdomen or pelvis. Dictated on workstation # [id number] Dict: 04/03/201930 Trans: 04/03/201935 [facility] [id number] Interpreted by: NICOLA FRANKLIN MD Electronically signed by: Departure Communication (Admissions) 1940-over Dr. Garber on-call for surgery, recommends steroid+ Augmentin, outpatient follow-up with GI. Impression Primary Impression: Exacerbation of Crohn's disease Qualified Codes: K50.90 - Crohn's disease, unspecified, without complications Disposition: HOME, SELF-CARE Condition: Stable Departure-Patient Inst. Decision time for Depature: 19:42 Referrals: VISHAL LAMBERT DO (PCP/Family) Primary Care Physician Patient Instructions: Crohn's Disease in Adults, Crohn's Disease Diet Add. Discharge Instructions: 1. Restart the steroids as directed, antibiotics and pain medication as directed. Call Dr. Andres tomorrow morning to make an appointment to be seen preferably this week. All discharge instructions reviewed with patient and/or family. Voiced understanding. Scripts Prednisone (Prednisone) 10 Mg Tab.ds.pk 10 MG PO DAILY, #42 EA Take 6 tabs(60mg)daily,decrease by 1 tab(10mg)every other day. Prov: KELECHI ELLIOTT APRN 04/03/20 Amoxicillin/Potassium Clav (Augmentin 875-125 Tablet) 1 Each Tablet 1 EACH PO BID, #14 TAB 0 Refills Prov: KELECHI ELLIOTT APRN 04/03/20 KELECHI ELLIOTT APRN Apr 03, 2020 18:48
[2020-04-03 18:52] LABS: BASOPHILS % (AUTO) 0 % (0-10); EOSINOPHILS # (AUTO) 0.1 10^3/uL (0.0-0.3); EOSINOPHILS % (AUTO) 1 % (0-10); HEMATOCRIT 43 % (40-54); HEMOGLOBIN 14.7 G/DL (13.3-17.7); LYMPHOCYTES # (AUTO) 2.2 X 10^3 (1.0-4.0); LYMPHOCYTES % (AUTO) 17 % (12-44); MEAN CORPUSCULAR HEMOGLOBIN 26 PG (25-34); MEAN CORPUSCULAR HGB CONC 34 G/DL (32-36); MEAN CORPUSCULAR VOLUME 76 FL (80-99); MEAN PLATELET VOLUME 9.6 FL (7.4-10.4); MONOCYTES # (AUTO) 1.2 X 10^3 (0.0-1.0); MONOCYTES % (AUTO) 9 % (0-12); NEUTROPHILS # (AUTO) 9.5 X 10^3 (1.8-7.8); NEUTROPHILS % (AUTO) 72 % (42-75); PLATELET COUNT 413 10^3/uL (130-400); RED CELL DISTRIBUTION WIDTH 12.9 % (10.0-14.5); WHITE BLOOD COUNT 13.2 10^3/uL (4.3-11.0)
[2020-04-03 18:59] LABS: BILIRUBIN,URINE NEGATIVE (NEGATIVE); COLOR,URINE YELLOW; GLUCOSE, URINE (UA) NEGATIVE (NEGATIVE); KETONES,URINE NEGATIVE (NEGATIVE); LEUKOCYTE ESTERASE ,URINE NEGATIVE (NEGATIVE); NITRITE,URINE NEGATIVE (NEGATIVE); PROTEIN,URINE NEGATIVE (NEGATIVE)
[2020-04-03] MEDS ORDERED: NS IV 1000 ML 1,000 ML IV SCH (19:00)
[2020-04-03] MEDS ORDERED: CATHETER FLUSH 10 ML SYR IV PRN (19:00)
[2020-04-03] MEDS ORDERED: IOHEXOL 350 MG/ML 100 ML (OMNIPAQUE 350) VIAL IV ONE (19:00)
[2020-04-03] MEDS ORDERED: KETOROLAC 30 MG/ML VIAL IVP ONE (19:00)
[2020-04-03] MEDS ORDERED: HOLD METFORMIN - RECEIVED CONTRAST 20 ML VIAL IV SCH (19:00)
[2020-04-03] MEDS ORDERED: NS 100 ML (IVPB) BAG IV ONE (19:00)
[2020-04-03 19:01] LABS: ALBUMIN 4.2 GM/DL (3.2-4.5); CHLORIDE 102 MMOL/L (98-107); POTASSIUM 3.7 MMOL/L (3.6-5.0); SODIUM 138 MMOL/L (135-145)
[2020-04-03 19:03] LABS: CALCIUM 9.4 MG/DL (8.5-10.1)
[2020-04-03 19:04] LABS: GLUCOSE 106 MG/DL (70-105); TOTAL PROTEIN 8.4 GM/DL (6.4-8.2)
[2020-04-03 19:05] LABS: BACTERIA,URINE NEGATIVE /HPF; CLARITY,URINE CLEAR; RBC,URINE RARE /HPF; SQUAMOUS EPITHELIAL CELL,UR RARE /HPF
[2020-04-03 19:05] LABS: CARBON DIOXIDE 23 MMOL/L (21-32)
[2020-04-03 19:06] LABS: BILIRUBIN,TOTAL 0.4 MG/DL (0.1-1.0)
[2020-04-03 19:07] LABS: ALKALINE PHOSPHATASE 96 U/L (40-136)
[2020-04-03 19:08] LABS: CREATININE SERUM 1.35 MG/DL (0.60-1.30); GFR ESTIMATED > 60
[2020-04-03 19:09] LABS: BUN/CREATININE RATIO 8
[2020-04-03 19:10] LABS: ALANINE AMINOTRANSFERASE 46 U/L (0-55)
--- NOTE | 2020-04-03 19:36 | Diagnostic Imaging Report ---
PROCEDURE: CT abdomen and pelvis with contrast, rule out appendicitis. TECHNIQUE: Multiple contiguous axial images were obtained through the abdomen and pelvis after the administration of intravenous contrast. All CT scans use one or more of the following dose optimizing techniques: automated exposure control, MA and/or KvP adjustment based on patient size and exam type or iterative reconstruction. INDICATION: Right lower quadrant pain. FINDINGS: Heart size is normal. The lung bases are clear. Liver is normal in size and without focal lesions. Gallbladder is contracted. There is no biliary ductal dilatation. Spleen is normal. Pancreas and adrenal glands are unremarkable. Kidneys are normal in appearance. Aorta is nonaneurysmal. There is some focal inflammatory change and mucosal thickening about the distal small bowel. The appendix is normal. There is no abnormal fluid collection appreciated to suggest an abscess. There is no free air. There is no pelvic mass or adenopathy. Bladder is decompressed. The osseous structures are unremarkable. IMPRESSION: 1. Findings compatible with inflammatory bowel disease, likely Crohn's, of the distal ileum. There is no CT evidence of appendicitis or abscess. There is no free air or bowel obstruction. 2. No other acute abnormality in the abdomen or pelvis. Dictated by: Dictated on workstation # [id number]
[2020-04-03] MEDS ORDERED: PRED10TA22 PO (19:43)
[2020-04-03] MEDS ORDERED: AMOX-358 PO (19:43)
[2020-04-03] MEDS ORDERED: RX-HYDROCODONE/APAP 5/325 MG #4 TAB PK PO PRN (19:45)
[2020-04-03] MEDS ORDERED: methylPREDNISolone 125 MG (Solu-MEDROL) VIAL IVP ONE (19:45)
[2020-04-03] MEDS ORDERED: metroNIDAZOLE 500 MG (FLAGYL) TAB PO ONE (19:45)
[2020-04-03] MEDS ORDERED: cefTRIAXone FOR IV USE 1,000 MG in WATER (STERILE) FOR INJECTION 10 ML IV ONE (19:45)
[2020-04-03 20:01] VITALS: BP 113/86
--- OUTSIDE RECORDS SUMMARY | 2020-04-04 00:44 | XMS REPORT ---
Author Author Devante Vu Doctor Organization [facility] Address Unknown Phone Unavailable Care Team Providers Care Job Developer For Deaf Adults Name Role Phone Migration, Doctor Unavailable Unavailable PROBLEMS Type Condition ICD9-CM Code [id number] Code Onset Dates Condition S tatus SNOMED Code Problem GARDASIL (HPV) DX V04.89 Active 42 1174331 Problem MENINGOCOCCAL DX V03.89 Active 235 10087 Problem DTAP TEST V06.1 Active Problem STATE HEP A (ADULT) DX V05.3 Active [id number] ALLERGIES No Information ENCOUNTERS Encounter Location Date Diagnosis [facility] [address] [facility] [id number] [address] [place] [phone] Mar, Encounter for immunization Z 23 [facility] [address] [place] [id number] [place] [id number] Oct, [facility] [address] [facility] [id number] [address] [place] [id number] Oct, [facility] [address] [place] [id number] [place] [phone] Mar, IMMUNIZATIONS No Known Immunizations SOCIAL HISTORY Never Assessed REASON FOR VISIT EMR-[facility] [place] PLAN OF CARE VITAL SIGNS MEDICATIONS Unknown Medications RESULTS No Results PROCEDURES No Known procedures INSTRUCTIONS MEDICATIONS ADMINISTERED No Known Medications
--- OUTSIDE RECORDS SUMMARY | 2020-04-04 00:44 | XMS REPORT | Continuity of Care Document ---
Demographics Preferred Language Unknown Marital Status Unknown Jehovah'S Witness Affiliation Unknown Race Unknown Ethnic Group Unknown Author Organization Unknown Address Unknown Phone Unavailable Allergies Active Description Code Type Severity Reaction Onset Reported/Identified Relationship to Patient Clinical Status Yes No Known Drug Allergies [id number] Drug Allergy Unknown N/A 06/29/2016 Medications There is no data. Problems Date Dx Coded Attending Type Code Diagnosis Diagnosed By 04/06/2012 V03.89 MEN INGOCOCCAL DX 11/14/2012 V04.89 GAR DASIL (HPV) DX 11/14/2012 V05.3 HEP A (PED/ADOL 2- DOSE) DX 11/14/2012 V06.1 TDAP DX 08/01/2014 Ot 836.2 08/01/2014 Ot E000.8 08/01/2014 Ot E007.6 08/01/2014 Ot E928.9 08/02/2014 Ot 836.2 08/02/2014 Ot E000.8 08/02/2014 Ot E007.6 08/02/2014 Ot E928.9 04/27/2016 Ot 836.2 TEAR MENISCUS NEC- CURREN 04/27/2016 Ot E000.8 OTH ER EXTERNAL CAUSE STATUS 04/27/2016 Ot E007.6 ACT IVITIES INVOLVING BASKETBALL 04/27/2016 Ot E928.9 ACC IDENT NOS 04/30/2016 Ot 836.2 TEAR MENISCUS NEC- CURREN 04/30/2016 Ot E000.8 OTH ER EXTERNAL CAUSE STATUS 04/30/2016 Ot E007.6 ACT IVITIES INVOLVING BASKETBALL 04/30/2016 Ot E928.9 ACC IDENT NOS 04/30/2016 COSENS DO, VISHAL L Ot R10. 84 GENERALIZED ABDOMINAL PAIN 04/30/2016 COSENS DO, VISHAL L Ot R11. 10 VOMITING, UNSPECIFIED 04/30/2016 COSENS DO, VISHAL L Ot R19. 7 DIARRHEA, UNSPECIFIED 04/30/2016 Ot 836.2 TEAR MENISCUS NEC- CURREN 04/30/2016 Ot E000.8 OTH ER EXTERNAL CAUSE STATUS 04/30/2016 Ot E007.6 ACT IVITIES INVOLVING BASKETBALL 04/30/2016 Ot E928.9 ACC IDENT NOS 04/30/2016 COSENS DO, VISHAL L Ot R10. 84 GENERALIZED ABDOMINAL PAIN 04/30/2016 COSENS DO, VISHAL L Ot R11. 10 VOMITING, UNSPECIFIED 04/30/2016 COSENS DO, VISHAL L Ot R19. 7 DIARRHEA, UNSPECIFIED 05/01/2016 COSENS DO, VISHAL L Ot R10. 84 GENERALIZED ABDOMINAL PAIN 05/01/2016 COSENS DO, VISHAL L Ot R11. 10 VOMITING, UNSPECIFIED 05/01/2016 COSENS DO, VISHAL L Ot R19. 7 DIARRHEA, UNSPECIFIED 05/15/2016 COSENS DO, VISHAL L Ot R10. 84 GENERALIZED ABDOMINAL PAIN 05/15/2016 COSENS DO, VISHAL L Ot R11. 10 VOMITING, UNSPECIFIED 05/15/2016 COSENS DO, VISHAL L Ot R19. 7 DIARRHEA, UNSPECIFIED 06/29/2016 Ot 836.2 TEAR MENISCUS NEC- CURREN 06/29/2016 Ot E000.8 OTH ER EXTERNAL CAUSE STATUS 06/29/2016 Ot E007.6 ACT IVITIES INVOLVING BASKETBALL 06/29/2016 Ot E928.9 ACC IDENT NOS 06/29/2016 COSENS DO, VISHAL L Ot R10. 84 GENERALIZED ABDOMINAL PAIN 06/29/2016 COSENS DO, VISHAL L Ot R11. 10 VOMITING, UNSPECIFIED 06/29/2016 COSENS DO, VISHAL L Ot R19. 7 DIARRHEA, UNSPECIFIED 07/13/2016 DEFFENBAUGH DO, NICOLA D Ot K50.90 CROHN'S DISEASE, UNSPECIFIED, WITHOUT CO 07/13/2016 DEFFENBAUGH DO, NICOLA D Ot K50.90 CROHN'S DISEASE, UNSPECIFIED, WITHOUT CO 07/13/2016 DEFFENBAUGH DO, NICOLA D Ot K50.90 CROHN'S DISEASE, UNSPECIFIED, WITHOUT CO 07/14/2016 Ot 836.2 TEAR MENISCUS NEC- CURREN 07/14/2016 Ot E000.8 OTH ER EXTERNAL CAUSE STATUS 07/14/2016 Ot E007.6 ACT IVITIES INVOLVING BASKETBALL 07/14/2016 Ot E928.9 ACC IDENT NOS 07/14/2016 COSENS DO, VISHAL L Ot R10. 84 GENERALIZED ABDOMINAL PAIN 07/14/2016 COSENS DO, VISHAL L Ot R11. 10 VOMITING, UNSPECIFIED 07/14/2016 VISHAL LAMBERT DO Ot R19. 7 DIARRHEA, UNSPECIFIED 07/14/2016 DEFFENBAUGH DO, NICOLA D Ot K50.90 CROHN'S DISEASE, UNSPECIFIED, WITHOUT CO 08/07/2016 DEFFENBAUGH DO, NICOLA D Ot K50.90 CROHN'S DISEASE, UNSPECIFIED, WITHOUT CO 08/24/2016 DEFFENBAUGH DO, NICOLA D Ot K50.90 CROHN'S DISEASE, UNSPECIFIED, WITHOUT CO 09/27/2016 DEFFENBAUGH DO, NICOLA D Ot K50.90 CROHN'S DISEASE, UNSPECIFIED, WITHOUT CO 10/14/2016 DEFFENBAUGH DO, NICOLA D Ot K50.90 CROHN'S DISEASE, UNSPECIFIED, WITHOUT CO 10/14/2016 DEFFENBAUGH DO, NICOLA D Ot K50.90 CROHN'S DISEASE, UNSPECIFIED, WITHOUT CO 10/19/2016 DEFFENBAUGH DO, NICOLA D Ot K50.90 CROHN'S DISEASE, UNSPECIFIED, WITHOUT CO 10/19/2016 DEFFENBAUGH DO, NICOLA D Ot K50.90 CROHN'S DISEASE, UNSPECIFIED, WITHOUT CO 10/20/2016 DEFFENBAUGH DO, NICOLA D Ot K50.90 CROHN'S DISEASE, UNSPECIFIED, WITHOUT CO 10/20/2016 DEFFENBAUGH DO, NICOLA D Ot K50.90 CROHN'S DISEASE, UNSPECIFIED, WITHOUT CO 10/20/2016 DEFFENBAUGH DO, NICOLA D Ot K50.90 CROHN'S DISEASE, UNSPECIFIED, WITHOUT CO 10/21/2016 DEFFENBAUGH DO, NICOLA D Ot K50.90 CROHN'S DISEASE, UNSPECIFIED, WITHOUT CO 11/04/2016 DEFFENBAUGH DO, NICOLA D Ot K50.90 CROHN'S DISEASE, UNSPECIFIED, WITHOUT CO 11/16/2016 DEFFENBAUGH DO, NICOLA D Ot K50.90 CROHN'S DISEASE, UNSPECIFIED, WITHOUT CO 11/27/2016 Ot 836.2 TEAR MENISCUS NEC- CURREN 11/27/2016 Ot E000.8 OTH ER EXTERNAL CAUSE STATUS 11/27/2016 Ot E007.6 ACT IVITIES INVOLVING BASKETBALL 11/27/2016 Ot E928.9 ACC IDENT NOS 11/27/2016 COSENS DO, VISHAL L Ot R10. 84 GENERALIZED ABDOMINAL PAIN 11/27/2016 COSENS DO, VISHAL L Ot R11. 10 VOMITING, UNSPECIFIED 11/27/2016 COSENS DO, VISHAL L Ot R19. 7 DIARRHEA, UNSPECIFIED 11/27/2016 DEFFENBAUGH DO, NICOLA D Ot K50.90 CROHN'S DISEASE, UNSPECIFIED, WITHOUT CO 12/16/2016 DEFFENBAUGH DO, NICOLA D Ot K50.90 CROHN'S DISEASE, UNSPECIFIED, WITHOUT CO 12/16/2016 DEFFENBAUGH DO, NICOLA D Ot K50.90 CROHN'S DISEASE, UNSPECIFIED, WITHOUT CO 12/16/2016 Ot 836.2 TEAR MENISCUS NEC- CURREN 12/16/2016 Ot E000.8 OTH ER EXTERNAL CAUSE STATUS 12/16/2016 Ot E007.6 ACT IVITIES INVOLVING BASKETBALL 12/16/2016 Ot E928.9 ACC IDENT NOS 12/16/2016 COSENS DO, VISHAL L Ot R10. 84 GENERALIZED ABDOMINAL PAIN 12/16/2016 COSENS DO, VISHAL L Ot R11. 10 VOMITING, UNSPECIFIED 12/16/2016 COSENS DO, VISHAL L Ot R19. 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 84 GENERALIZED ABDOMINAL PAIN 02/09/2017 COSENS DO, VISHAL L Ot R11. 10 VOMITING, UNSPECIFIED 02/09/2017 COSENS DO, VISHAL L Ot R19. 7 DIARRHEA, UNSPECIFIED 02/09/2017 DEFFENBAUGH DO, NICOLA D Ot K50.90 CROHN'S DISEASE, UNSPECIFIED, WITHOUT CO 02/10/2017 DEFFENBAUGH DO, NICOLA D Ot K50.90 CROHN'S DISEASE, UNSPECIFIED, WITHOUT CO 02/22/2017 Ot 836.2 TEAR MENISCUS NEC- CURREN 02/22/2017 Ot E000.8 OTH ER EXTERNAL CAUSE STATUS 02/22/2017 Ot E007.6 ACT IVITIES INVOLVING BASKETBALL 02/22/2017 Ot E928.9 ACC IDENT NOS 02/22/2017 COSENS DO, VISHAL L Ot R10. 84 GENERALIZED ABDOMINAL PAIN 02/22/2017 COSENS DO, VISHAL L Ot R11. 10 VOMITING, UNSPECIFIED 02/22/2017 COSENS DO, VISHAL L Ot R19. 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 02/22/2017 CHARLES WORTHY, JIAN Tsai Ot R10.31 RIGHT LOWER QUADRANT PAIN 02/22/2017 CHARLES WORTHY, JIAN Tsai Ot Z87.19 PERSONAL HISTORY OF OTHER DISEASES OF 03/30/2017 DEFFENBAUGH DO NICOLA D Ot K50.90 CROHN'S DISEASE, UNSPECIFIED, WITHOUT CO 04/14/2017 DEFFENBAUGH DO, NICOLA D Ot K50.90 CROHN'S DISEASE, UNSPECIFIED, WITHOUT CO 04/28/2017 DEFFENBAUGH DO NICOLA D Ot K50.90 CROHN'S DISEASE, UNSPECIFIED, WITHOUT CO 06/14/2017 DEFFENBAUGH DO, NICOLA D Ot K50.90 CROHN'S DISEASE, UNSPECIFIED, WITHOUT CO 06/15/2017 DEFFENBAUGH DO, NICOLA D Ot K50.90 CROHN'S DISEASE, UNSPECIFIED, WITHOUT CO 06/15/2017 DEFFENBAUGH DO, NICOLA D Ot K50.90 CROHN'S DISEASE, UNSPECIFIED, WITHOUT CO 06/16/2017 DEFFENBAUGH DO, NICOLA D Ot K50.90 CROHN'S DISEASE, UNSPECIFIED, WITHOUT CO 06/16/2017 DEFFENBAUGH DO, NICOLA D Ot K50.90 CROHN'S DISEASE, UNSPECIFIED, WITHOUT CO 06/18/2017 DEFFENBAUGH DO, NICOLA D Ot K50.90 CROHN'S DISEASE, UNSPECIFIED, WITHOUT CO 06/22/2017 DEFFENBAUGH DO, NICOLA D Ot K50.90 CROHN'S DISEASE, UNSPECIFIED, WITHOUT CO 06/22/2017 CINDY , LATIA Arellano Ot S51.812 A LACERATION WITHOUT FOREIGN BODY OF LEFT 06/22/2017 CINDY , LATIA K Ot S59.912 A UNSPECIFIED INJURY OF LEFT FOREARM, INIT 06/22/2017 CINDY , LATIA Arellano Ot W26.8XX A CONTACT WITH OTHER SHARP OBJECT(S), NEC, 06/22/2017 CINDY , LATIA K Ot Z23 ENCOUNTER FOR IMMUNIZATION 06/22/2017 CINDY , LATIA Arellano Ot Z87.19 PERSONAL HISTORY OF OTHER DISEASES OF 06/28/2017 CINDY , LATIA Arellano Ot S51.812 A LACERATION WITHOUT FOREIGN BODY OF LEFT 06/28/2017 CINDY , LATIA Arellano Ot S59.912 A UNSPECIFIED INJURY OF LEFT FOREARM, INIT 06/28/2017 CINDY , LATIA Arellano Ot W26.8XX A CONTACT WITH OTHER SHARP OBJECT(S), NEC, 06/28/2017 CINDY , LATIA K Ot Z23 ENCOUNTER FOR IMMUNIZATION 06/28/2017 CINDY , LATIA Arellano Ot Z87.19 PERSONAL HISTORY OF OTHER DISEASES OF 08/20/2017 COSENS DO, VISHAL L Ot R10. 84 GENERALIZED ABDOMINAL PAIN 08/20/2017 COSENS DO, VISHAL L Ot R11. 10 VOMITING, UNSPECIFIED 08/20/2017 COSENS DO, VISHAL L Ot R19. 7 DIARRHEA, UNSPECIFIED 08/20/2017 DEFFENBAUGH DO, NICOLA D Ot K50.90 CROHN'S DISEASE, UNSPECIFIED, WITHOUT CO 08/20/2017 DEFFENBAUGH DO, NICOLA D Ot K50.90 CROHN'S DISEASE, UNSPECIFIED, WITHOUT CO 08/20/2017 DEFFENBAUGH DO, NICOLA D Ot K50.90 CROHN'S DISEASE, UNSPECIFIED, WITHOUT CO 08/20/2017 DEFFENBAUGH DO, NICOLA D Ot K50.90 CROHN'S DISEASE, UNSPECIFIED, WITHOUT CO 08/25/2017 DEFFENBAUGH DO, NICOLA D Ot K50.90 CROHN'S DISEASE, UNSPECIFIED, WITHOUT CO 08/27/2017 DEFFENBAUGH DO, NICOLA D Ot K50.90 CROHN'S DISEASE, UNSPECIFIED, WITHOUT CO 10/15/2017 DEFFENBAUGH DO, NICOLA D Ot K50.90 CROHN'S DISEASE, UNSPECIFIED, WITHOUT CO 10/26/2017 DEFFENBAUGH DO, NICOLA D Ot K50.90 CROHN'S DISEASE, UNSPECIFIED, WITHOUT CO 11/23/2017 COSENS DO, VISHAL L Ot R10. 84 GENERALIZED ABDOMINAL PAIN 11/23/2017 COSENS DO, VISHAL L Ot R11. 10 VOMITING, UNSPECIFIED 11/23/2017 COSENS DO, VISHAL L Ot R19. 7 DIARRHEA, UNSPECIFIED 11/23/2017 DEFFENBAUGH DO, NICOLA D Ot K50.90 CROHN'S DISEASE, UNSPECIFIED, WITHOUT CO 11/23/2017 DEFFENBAUGH DO, NICOLA D Ot K50.90 CROHN'S DISEASE, UNSPECIFIED, WITHOUT CO 11/23/2017 DEFFENBAUGH DO, NICOLA D Ot K50.90 CROHN'S DISEASE, UNSPECIFIED, WITHOUT CO 11/23/2017 DEFFENBAUGH DO, NICOLA D Ot K50.90 CROHN'S DISEASE, UNSPECIFIED, WITHOUT CO 11/23/2017 DEFFENBAUGH DO, NICOLA D Ot K50.90 CROHN'S DISEASE, UNSPECIFIED, WITHOUT CO 11/23/2017 DEFFENBAUGH DO, NICOLA D Ot K50.90 CROHN'S DISEASE, UNSPECIFIED, WITHOUT CO 12/08/2017 DEFFENBAUGH DO, NICOLA D Ot K50.90 CROHN'S DISEASE, UNSPECIFIED, WITHOUT CO 12/21/2017 COSENS DO, VISHAL L Ot R10. 84 GENERALIZED ABDOMINAL PAIN 12/21/2017 COSENS DO, VISHAL L Ot R11. 10 VOMITING, UNSPECIFIED 12/21/2017 COSENS DO, VISHAL L Ot R19. 7 DIARRHEA, UNSPECIFIED 12/21/2017 DEFFENBAUGH DO, NICOLA D Ot K50.90 CROHN'S DISEASE, UNSPECIFIED, WITHOUT CO 12/21/2017 DEFFENBAUGH DO, NICOLA D Ot K50.90 CROHN'S DISEASE, UNSPECIFIED, WITHOUT CO 12/21/2017 DEFFENBAUGH DO, NICOLA D Ot K50.90 CROHN'S DISEASE, UNSPECIFIED, WITHOUT CO 12/21/2017 DEFFENBAUGH DO, NICOLA D Ot K50.90 CROHN'S DISEASE, UNSPECIFIED, WITHOUT CO 12/21/2017 DEFFENBAUGH DO, NICOLA D Ot K50.90 CROHN'S DISEASE, UNSPECIFIED, WITHOUT CO 12/21/2017 DEFFENBAUGH DO, NICOLA D Ot K50.90 CROHN'S DISEASE, UNSPECIFIED, WITHOUT CO 12/29/2017 DEFFENBAUGH DO, NICOLA D Ot K50.90 CROHN'S DISEASE, UNSPECIFIED, WITHOUT CO 12/30/2017 COSENS DO, VISHAL L Ot R10. 84 GENERALIZED ABDOMINAL PAIN 12/30/2017 COSENS DO, VISHAL L Ot R11. 10 VOMITING, UNSPECIFIED 12/30/2017 COSENS DO, VISHAL L Ot R19. 7 DIARRHEA, UNSPECIFIED 12/30/2017 DEFFENBAUGH DO, NICOLA D Ot K50.90 CROHN'S DISEASE, UNSPECIFIED, WITHOUT CO 12/30/2017 DEFFENBAUGH DO, NICOLA D Ot K50.90 CROHN'S DISEASE, UNSPECIFIED, WITHOUT CO 12/30/2017 DEFFENBAUGH DO, NICOLA D Ot K50.90 CROHN'S DISEASE, UNSPECIFIED, WITHOUT CO 12/30/2017 DEFFENBAUGH DO, NICOLA D Ot K50.90 CROHN'S DISEASE, UNSPECIFIED, WITHOUT CO 12/30/2017 DEFFENBAUGH DO, NICOLA D Ot K50.90 CROHN'S DISEASE, UNSPECIFIED, WITHOUT CO 12/30/2017 DEFFENBAUGH DO, NICOLA D Ot K50.90 CROHN'S DISEASE, UNSPECIFIED, WITHOUT CO 12/30/2017 DEFFENBAUGH DO, NICOLA D Ot K50.90 CROHN'S DISEASE, UNSPECIFIED, WITHOUT CO 12/30/2017 COSENS DO, VISHAL L Ot R10. 84 GENERALIZED ABDOMINAL PAIN 12/30/2017 COSENS DO, VISHAL L Ot R11. 10 VOMITING, UNSPECIFIED 12/30/2017 COSENS DO, VISHAL L Ot R19. 7 DIARRHEA, UNSPECIFIED 12/30/2017 DEFFENBAUGH DO, NICOLA D Ot K50.90 CROHN'S DISEASE, UNSPECIFIED, WITHOUT CO 12/30/2017 DEFFENBAUGH DO, NICOLA D Ot K50.90 CROHN'S DISEASE, UNSPECIFIED, WITHOUT CO 12/30/2017 DEFFENBAUGH DO, NICOLA D Ot K50.90 CROHN'S DISEASE, UNSPECIFIED, WITHOUT CO 12/30/2017 DEFFENBAUGH DO, NICOLA D Ot K50.90 CROHN'S DISEASE, UNSPECIFIED, WITHOUT CO 12/30/2017 DEFFENBAUGH DO, NICOLA D Ot K50.90 CROHN'S DISEASE, UNSPECIFIED, WITHOUT CO 12/30/2017 DEFFENBAUGH DO, NICOLA D Ot K50.90 CROHN'S DISEASE, UNSPECIFIED, WITHOUT CO 12/30/2017 DEFFENBAUGH DO, NICOLA D Ot K50.90 CROHN'S DISEASE, UNSPECIFIED, WITHOUT CO 01/05/2018 Ot 836.2 TEAR MENISCUS NEC- CURREN 01/05/2018 Ot E000.8 OTH ER EXTERNAL CAUSE STATUS 01/05/2018 Ot E007.6 ACT IVITIES INVOLVING BASKETBALL 01/05/2018 Ot E928.9 ACC IDENT NOS 01/05/2018 COSENS DO, VISHAL L Ot R10. 84 GENERALIZED ABDOMINAL PAIN 01/05/2018 COSENS DO, VISHAL L Ot R11. 10 VOMITING, UNSPECIFIED 01/05/2018 COSENS DO, VISHAL L Ot R19. 7 DIARRHEA, UNSPECIFIED 01/05/2018 DEFFENBAUGH DO, NICOLA D Ot K50.90 CROHN'S DISEASE, UNSPECIFIED, WITHOUT CO 01/05/2018 DEFFENBAUGH DO, NICOLA D Ot K50.90 CROHN'S DISEASE, UNSPECIFIED, WITHOUT CO 01/05/2018 DEFFENBAUGH DO, NICOLA D Ot K50.90 CROHN'S DISEASE, UNSPECIFIED, WITHOUT CO 01/05/2018 DEFFENBAUGH DO, NICOLA D Ot K50.90 CROHN'S DISEASE, UNSPECIFIED, WITHOUT CO 01/05/2018 DEFFENBAUGH DO, NICOLA D Ot K50.90 CROHN'S DISEASE, UNSPECIFIED, WITHOUT CO 01/05/2018 DEFFENBAUGH DO, NICOLA D Ot K50.90 CROHN'S DISEASE, UNSPECIFIED, WITHOUT CO 01/05/2018 DEFFENBAUGH DO, NICOLA D Ot K50.90 CROHN'S DISEASE, UNSPECIFIED, WITHOUT CO 01/07/2018 COSENS DO, VISHAL L Ot R10. 84 GENERALIZED ABDOMINAL PAIN 01/07/2018 COSENS DO, VISHAL L Ot R11. 10 VOMITING, UNSPECIFIED 01/07/2018 COSENS DO, VISHAL L Ot R19. 7 DIARRHEA, UNSPECIFIED 01/07/2018 DEFFENBAUGH DO, NICOLA D Ot K50.90 CROHN'S DISEASE, UNSPECIFIED, WITHOUT CO 01/07/2018 DEFFENBAUGH DO, NICOLA D Ot K50.90 CROHN'S DISEASE, UNSPECIFIED, WITHOUT CO 01/07/2018 DEFFENBAUGH DO, NICOLA D Ot K50.90 CROHN'S DISEASE, UNSPECIFIED, WITHOUT CO 01/07/2018 DEFFENBAUGH DO, NICOLA D Ot K50.90 CROHN'S DISEASE, UNSPECIFIED, WITHOUT CO 01/07/2018 DEFFENBAUGH DO, NICOLA D Ot K50.90 CROHN'S DISEASE, UNSPECIFIED, WITHOUT CO 01/07/2018 DEFFENBAUGH DO, NICOLA D Ot K50.90 CROHN'S DISEASE, UNSPECIFIED, WITHOUT CO 01/07/2018 DEFFENBAUGH DO, NICOLA D Ot K50.90 CROHN'S DISEASE, UNSPECIFIED, WITHOUT CO 02/02/2018 DEFFENBAUGH DO, NICOLA D Ot K50.90 CROHN'S DISEASE, UNSPECIFIED, WITHOUT CO 02/18/2018 DEFFENBAUGH DO, NICOLA D Ot K50.90 CROHN'S DISEASE, UNSPECIFIED, WITHOUT CO 02/21/2018 DEFFENBAUGH DO, NICOLA D Ot K50.90 CROHN'S DISEASE, UNSPECIFIED, WITHOUT CO 03/24/2018 DEFFENBAUGH DO, NICOLA D Ot K50.90 CROHN'S DISEASE, UNSPECIFIED, WITHOUT CO 03/25/2018 DEFFENBAUGH DO, NICOLA D Ot K50.90 CROHN'S DISEASE, UNSPECIFIED, WITHOUT CO 04/15/2018 DEFFENBAUGH DO, NICOLA D Ot K50.90 CROHN'S DISEASE, UNSPECIFIED, WITHOUT CO 04/15/2018 DEFFENBAUGH DO, NICOLA D Ot K50.90 CROHN'S DISEASE, UNSPECIFIED, WITHOUT CO 04/15/2018 DEFFENBAUGH DO, NICOLA D Ot K50.90 CROHN'S DISEASE, UNSPECIFIED, WITHOUT CO 04/15/2018 DEFFENBAUGH DO, NICOLA D Ot K50.90 CROHN'S DISEASE, UNSPECIFIED, WITHOUT CO 04/15/2018 DEFFENBAUGH DO, NICOLA D Ot K50.90 CROHN'S DISEASE, UNSPECIFIED, WITHOUT CO 04/15/2018 DEFFENBAUGH DO, NICOLA D Ot K50.90 CROHN'S DISEASE, UNSPECIFIED, WITHOUT CO 04/18/2018 DEFFENBAUGH DO, NICOLA D Ot K50.90 CROHN'S DISEASE, UNSPECIFIED, WITHOUT CO 04/19/2018 DEFFENBAUGH DO, NICOLA D Ot K50.90 CROHN'S DISEASE, UNSPECIFIED, WITHOUT CO 06/10/2018 DEFFENBAUGH DO, NICOLA D Ot K50.90 CROHN'S DISEASE, UNSPECIFIED, WITHOUT CO 06/10/2018 DEFFENBAUGH DO, NICOLA D Ot K50.90 CROHN'S DISEASE, UNSPECIFIED, WITHOUT CO 06/10/2018 DEFFENBAUGH DO, NICOLA D Ot K50.90 CROHN'S DISEASE, UNSPECIFIED, WITHOUT CO 06/15/2018 DEFFENBAUGH DO, NICOLA D Ot K50.90 CROHN'S DISEASE, UNSPECIFIED, WITHOUT CO 06/22/2018 DEFFENBAUGH DO, NICOLA D Ot K50.90 CROHN'S DISEASE, UNSPECIFIED, WITHOUT CO 07/07/2018 DEFFENBAUGH DO, NICOLA D Ot K50.90 CROHN'S DISEASE, UNSPECIFIED, WITHOUT CO 08/15/2018 DEFFENBAUGH DO, NICOLA D Ot K50.90 CROHN'S DISEASE, UNSPECIFIED, WITHOUT CO 08/18/2018 DEFFENBAUGH DO, NICOLA D Ot K50.90 CROHN'S DISEASE, UNSPECIFIED, WITHOUT CO 08/18/2018 DEFFENBAUGH DO, NICOLA D Ot K50.90 CROHN'S DISEASE, UNSPECIFIED, WITHOUT CO 08/18/2018 DEFFENBAUGH DO, NICOLA D Ot K50.90 CROHN'S DISEASE, UNSPECIFIED, WITHOUT CO 08/18/2018 DEFFENBAUGH DO, NICOLA D Ot K50.90 CROHN'S DISEASE, UNSPECIFIED, WITHOUT CO 08/23/2018 DEFFENBAUGH DO, NICOLA D Ot K50.90 CROHN'S DISEASE, UNSPECIFIED, WITHOUT CO 08/26/2018 DEFFENBAUGH DO, NICOLA D Ot K50.90 CROHN'S DISEASE, UNSPECIFIED, WITHOUT CO 10/12/2018 DEFFENBAUGH DO, NICOLA D Ot K50.90 CROHN'S DISEASE, UNSPECIFIED, WITHOUT CO 10/16/2018 DEFFENBAUGH DO, NICOLA D Ot K50.90 CROHN'S DISEASE, UNSPECIFIED, WITHOUT CO 10/24/2018 DEFFENBAUGH DO, NICOLA D Ot K50.90 CROHN'S DISEASE, UNSPECIFIED, WITHOUT CO 11/07/2018 DEFFENBAUGH DO, NICOLA D Ot K50.90 CROHN'S DISEASE, UNSPECIFIED, WITHOUT CO 11/11/2018 DEFFENBAUGH DO, NICOLA D Ot K50.90 CROHN'S DISEASE, UNSPECIFIED, WITHOUT CO 12/09/2018 DEFFENBAUGH DO, NICOLA D Ot K50.90 CROHN'S DISEASE, UNSPECIFIED, WITHOUT CO 12/13/2018 DEFFENBAUGH DO, NICOLA D Ot K50.90 CROHN'S DISEASE, UNSPECIFIED, WITHOUT CO 12/15/2018 DEFFENBAUGH DO, NICOLA D Ot K50.90 CROHN'S DISEASE, UNSPECIFIED, WITHOUT CO 02/09/2019 DEFFENBAUGH DO, NICOLA D Ot K50.90 CROHN'S DISEASE, UNSPECIFIED, WITHOUT CO 05/03/2019 DEFFENBAUGH DO, NICOLA D Ot K50.90 CROHN'S DISEASE, UNSPECIFIED, WITHOUT CO 06/28/2019 DEFFENBAUGH DO, NICOLA D Ot Z51.81 ENCOUNTER FOR THERAPEUTIC DRUG LEVEL [facility] 06/28/2019 DEFFENBAUGH DO, NICOLA D Ot K50.90 CROHN'S DISEASE, UNSPECIFIED, WITHOUT CO 06/29/2019 DEFFENBAUGH DO, NICOLA D Ot K50.90 CROHN'S DISEASE, UNSPECIFIED, WITHOUT CO 06/29/2019 DEFFENBAUGH DO, NICOLA D Ot K50.90 CROHN'S DISEASE, UNSPECIFIED, WITHOUT CO 08/23/2019 DEFFENBAUGH DO, NICOLA D Ot K50.90 CROHN'S DISEASE, UNSPECIFIED, WITHOUT CO 09/04/2019 DEFFENBAUGH DO, NICOLA D Ot K50.90 CROHN'S DISEASE, UNSPECIFIED, WITHOUT CO 04/03/2020 COSENS DO, VISHAL L Ot R10. 84 GENERALIZED ABDOMINAL PAIN 04/03/2020 COSENS DO, VISHAL L Ot R11. 10 VOMITING, UNSPECIFIED 04/03/2020 COSENS DO, VISHAL L Ot R19. 7 DIARRHEA, UNSPECIFIED 04/03/2020 DEFFENBAUGH DO, NICOLA D Ot K50.90 CROHN'S DISEASE, UNSPECIFIED, WITHOUT CO 04/03/2020 DEFFENBAUGH DO, NICOLA D Ot K50.90 CROHN'S DISEASE, UNSPECIFIED, WITHOUT CO 04/03/2020 DEFFENBAUGH DO, NICOLA D Ot K50.90 CROHN'S DISEASE, UNSPECIFIED, WITHOUT CO 04/03/2020 DEFFENBAUGH DO, NICOLA D Ot K50.90 CROHN'S DISEASE, UNSPECIFIED, WITHOUT CO 04/03/2020 DEFFENBAUGH DO, NICOLA D Ot K50.90 CROHN'S DISEASE, UNSPECIFIED, WITHOUT CO 04/03/2020 DEFFENBAUGH DO, NICOLA D Ot K50.90 CROHN'S DISEASE, UNSPECIFIED, WITHOUT CO 04/03/2020 DEFFENBAUGH DO, NICOLA D Ot K50.90 CROHN'S DISEASE, UNSPECIFIED, WITHOUT CO 04/03/2020 DEFFENBAUGH DO, NICOLA D Ot K50.90 CROHN'S DISEASE, UNSPECIFIED, WITHOUT CO 04/03/2020 DEFFENBAUGH DO, NICOLA D Ot K50.90 CROHN'S DISEASE, UNSPECIFIED, WITHOUT CO 04/03/2020 DEFFENBAUGH DO, NICOLA D Ot K50.90 CROHN'S DISEASE, UNSPECIFIED, WITHOUT CO 04/03/2020 DEFFENBAUGH DO, NICOLA D Ot K50.90 CROHN'S DISEASE, UNSPECIFIED, WITHOUT CO 04/03/2020 DEFFENBAUGH DO, NICOLA D Ot K50.90 CROHN'S DISEASE, UNSPECIFIED, WITHOUT CO 04/03/2020 DEFFENBAUGH DO, NICOLA D Ot K50.90 CROHN'S DISEASE, UNSPECIFIED, WITHOUT CO 04/03/2020 DEFFENBAUGH DO, NICOLA D Ot Z51.81 ENCOUNTER FOR THERAPEUTIC DRUG LEVEL MON Procedures There is no data. Results Test Result Range Complete urinalysis with reflex to cultu re - 02/22/17 19:35 Urine color determination YELLOW NRG Urine clarity determination CLEAR NR G Urine pH measurement by test strip 6 5-9 Specific gravity of urine by test strip 1.025 1.016-1.022 Urine protein assay by test strip, semi-quantitative 1+ NEGATIVE Urine glucose detection by automated test strip NE GATIVE NEGATIVE Erythrocytes detection in urine sediment by light micr oscopy NEGATIVE NEGATIVE Urine ketones detection by automated test strip NE GATIVE NEGATIVE Urine nitrite detection by test strip NEGATIVE NEGATIVE Urine total bilirubin detection by test strip NEGA TIVE NEGATIVE Urine urobilinogen measurement by automated test strip (mass/volume) 1 mg/dL NORMAL Urine leukocyte esterase detection by dipstick 1+ NEGATIVE Automated urine sediment erythrocyte cou nt by microscopy (number/high power field) NONE NRG Automated urine sediment leukocyte count by microscopy (number/high power field) [HPF] NRG Bacteria detection in urine sediment by light microsco py NONE NRG Crystals detection in urine sediment by light microsco py NONE NRG Casts detection in urine sediment by light microscopy NONE NRG Mucus detection in urine sediment by light microscopy SMALL NRG Complete urinalysis with reflex to culture NO NRG Complete blood count (CBC) with automate d white blood cell (WBC) differential - 02/22/17 19:40 Blood leukocytes automated count (number/volume) 12.4 10*3/uL 4.3-11.0 Blood erythrocytes automated count (number/volume) 5.63 10*6/uL 4.35-5.85 Venous blood hemoglobin measurement (mass/volume) 13.7 g/dL 13.3-17.7 Blood hematocrit (volume fraction) 42 % 40-54 Automated erythrocyte mean corpuscular volume 75 [ foz_us] 80-99 Automated erythrocyte mean corpuscular h emoglobin (mass per erythrocyte) 24 pg 25-34 Automated erythrocyte mean corpuscular h emoglobin concentration measurement (mass/volume) 33 g/dL 32-36 Automated erythrocyte distribution width ratio 15. 7 % 10.0- 14.5 Automated blood platelet count (count/volume) 308 10*3/uL 130-400 Automated blood platelet mean volume measurement 10.0 [foz_us] 7.4-10.4 Automated blood neutrophils/100 leukocytes 79 % 42-75 Automated blood lymphocytes/100 leukocytes 13 % 12-44 Blood monocytes/100 leukocytes 7 % 0-12 Automated blood eosinophils/100 leukocytes 2 % 0-10 Automated blood basophils/100 leukocytes 0 % 0-10 Blood neutrophils automated count (number/volume) 9.7 10*3 1.8-7.8 Blood lymphocytes automated count (number/volume) 1.6 10*3 1.0-4.0 Blood monocytes automated count (number/volume) 0. 8 10*3 0.0-1.0 Automated eosinophil count 0.2 10*3/uL 0 .0-0.3 Automated blood basophil count (count/volume) 0.0 10*3/uL 0.0-0.1 Comprehensive metabolic panel - 02/22/17 19:40 Serum or plasma sodium measurement (moles/volume) 141 mmol/L 135-145 Serum or plasma potassium measurement (moles/volume) 3.9 mmol/L 3.6-5.0 Serum or plasma chloride measurement (moles/volume) 104 mmol/L 98-107 Carbon dioxide 26 mmol/L 21-32 Serum or plasma anion gap determination (moles/volume) 11 mmol/L 5-14 Serum or plasma urea nitrogen measurement (mass/volume ) 14 mg/dL 7-18 Serum or plasma creatinine measurement (mass/volume) 1.16 mg/dL 0.60-1.30 Serum or plasma urea nitrogen/creatinine mass ratio 12 NRG Serum or plasma creatinine measurement w ith calculation of estimated glomerular filtration rate > NRG Serum or plasma glucose measurement (mass/volume) 103 mg/dL 70-105 Serum or plasma calcium measurement (mass/volume) 9.8 mg/dL 8.5-10.1 Serum or plasma total bilirubin measurement (mass/volu me) 0.5 mg/dL 0.1-1.0 Serum or plasma alkaline phosphatase judie surement (enzymatic activity/volume) 68 U/L 40-136 Serum or plasma aspartate aminotransfera se measurement (enzymatic activity/volume) 22 U/L 5-34 Serum or plasma alanine aminotransferase measurement (enzymatic activity/volume) 43 U/L 0-55 Serum or plasma protein measurement (mass/volume) 7.9 g/dL 6.4-8.2 Serum or plasma albumin measurement (mass/volume) 4.2 g/dL 3.2-4.5 Complete blood count (CBC) with automate d white blood cell (WBC) differential - 04/03/20 18:45 Blood leukocytes automated count (number/volume) 13.2 10*3/uL 4.3-11.0 Blood erythrocytes automated count (number/volume) 5.69 10*6/uL 4.35-5.85 Venous blood hemoglobin measurement (mass/volume) 14.7 g/dL 13.3-17.7 Blood hematocrit (volume fraction) 43 % 40-54 Automated erythrocyte mean corpuscular volume 76 [ foz_us] 80-99 Automated erythrocyte mean corpuscular h emoglobin (mass per erythrocyte) 26 pg 25-34 Automated erythrocyte mean corpuscular h emoglobin concentration measurement (mass/volume) 34 g/dL 32-36 Automated erythrocyte distribution width ratio 12. 9 % 10.0- 14.5 Automated blood platelet count (count/volume) 413 10*3/uL 130-400 Automated blood platelet mean volume measurement 9.6 [foz_us] 7.4-10.4 Automated blood neutrophils/100 leukocytes 72 % 42-75 Automated blood lymphocytes/100 leukocytes 17 % 12-44 Blood monocytes/100 leukocytes 9 % 0-12 Automated blood eosinophils/100 leukocytes 1 % 0-10 Automated blood basophils/100 leukocytes 0 % 0-10 Blood neutrophils automated count (number/volume) 9.5 10*3 1.8-7.8 Blood lymphocytes automated count (number/volume) 2.2 10*3 1.0-4.0 Blood monocytes automated count (number/volume) 1. 2 10*3 0.0-1.0 Automated eosinophil count 0.1 10*3/uL 0 .0-0.3 Automated blood basophil count (count/volume) 0.0 10*3/uL 0.0-0.1 Comprehensive metabolic panel - 04/03/20 18:45 Serum or plasma sodium measurement (moles/volume) 138 mmol/L 135-145 Serum or plasma potassium measurement (moles/volume) 3.7 mmol/L 3.6-5.0 Serum or plasma chloride measurement (moles/volume) 102 mmol/L 98-107 Carbon dioxide 23 mmol/L 21-32 Serum or plasma anion gap determination (moles/volume) 13 mmol/L 5-14 Serum or plasma urea nitrogen measurement (mass/volume ) 11 mg/dL 7-18 Serum or plasma creatinine measurement (mass/volume) 1.35 mg/dL 0.60-1.30 Serum or plasma urea nitrogen/creatinine mass ratio 8 NRG Serum or plasma creatinine measurement w ith calculation of estimated glomerular filtration rate > NRG Serum or plasma glucose measurement (mass/volume) 106 mg/dL 70-105 Serum or plasma calcium measurement (mass/volume) 9.4 mg/dL 8.5-10.1 Serum or plasma total bilirubin measurement (mass/volu me) 0.4 mg/dL 0.1-1.0 Serum or plasma alkaline phosphatase judie surement (enzymatic activity/volume) 96 U/L 40-136 Serum or plasma aspartate aminotransfera se measurement (enzymatic activity/volume) 21 U/L 5-34 Serum or plasma alanine aminotransferase measurement (enzymatic activity/volume) 46 U/L 0-55 Serum or plasma protein measurement (mass/volume) 8.4 g/dL 6.4-8.2 Serum or plasma albumin measurement (mass/volume) 4.2 g/dL 3.2-4.5 CALCIUM CORRECTED 9.2 mg/dL 8.5-10.1 Serum or plasma C reactive protein measu rement (mass/volume) - 04/03/20 18:45 Serum or plasma C reactive protein measurement (mass/v olume) 8.53 mg/dL 0.00-0.50 Complete urinalysis with reflex to cultu re - 04/03/20 18:51 Urine color determination YELLOW NRG Urine clarity determination CLEAR NR G Urine pH measurement by test strip 7.0 5-9 Specific gravity of urine by test strip 1.020 1.016-1.022 Urine protein assay by test strip, semi-quantitative NEGATIVE NEGATIVE Urine glucose detection by automated test strip NE GATIVE NEGATIVE Erythrocytes detection in urine sediment by light micr oscopy TRACE-I NEGATIVE Urine ketones detection by automated test strip NE GATIVE NEGATIVE Urine nitrite detection by test strip NEGATIVE NEGATIVE Urine total bilirubin detection by test strip NEGA TIVE NEGATIVE Urine urobilinogen measurement by automated test strip (mass/volume) 0.2 mg/dL < = 1.0 Urine leukocyte esterase detection by dipstick NEG ATIVE NEGATIVE Automated urine sediment erythrocyte cou nt by microscopy (number/high power field) RARE NRG Automated urine sediment leukocyte count by microscopy (number/high power field) NONE NRG Bacteria detection in urine sediment by light microsco py NEGATIVE NRG Squamous epithelial cells detection in u rine sediment by light microscopy RARE NRG Crystals detection in urine sediment by light microsco py NONE NRG Casts detection in urine sediment by light microscopy NONE NRG Mucus detection in urine sediment by light microscopy SMALL NRG Complete urinalysis with reflex to culture NO NRG Encounters ACCT No. Visit Date/Time Discharge Status Pt. Type Provider Facility Loc./Unit Complaint [id number] 11/14/2012 15:27:00 11/14/2012 23:59: 59 CLS Outpatient [id number] 11/14/2012 16:10:05 RECURRING [id number] 04/03/2020 18:39:00 20:01:00 DIS Emergency KELECHI ELLIOTT APRN [facility] ER RLQ PAIN, FEVER [id number] 08/18/2019 10:00:00 23:59:59 CLS Preadmit DEFFENBAUGH DO NICOLA D [facility] [address] [place] [id number] 06/23/2019 15:17:00 23:59:59 CLS Outpatient DEFFENBAUGH DO NICOLA D [facility] [address] [place] [id number] 04/28/2019 15:10:00 23:59:59 CLS Outpatient DEFFENBAUGH DO NICOLA D [facility] [address] [place] [id number] 03/31/2019 15:00:00 23:59:59 CLS Preadmit DEFFENBAUGH DO NICOLA D [facility] [address] [place] [id number] 02/03/2019 14:40:00 23:59:59 CLS Outpatient DEFFENBAUGH DO NICOLA D [facility] [address] [place] [id number] 12/09/2018 15:17:00 23:59:59 CLS Outpatient DEFFENBAUGH DO NICOLA D [facility] [address] [place] [id number] 10/10/2018 15:15:00 23:59:59 CLS Outpatient DEFFENBAUGH DO NICOLA D [facility] [address] [place] [id number] 08/12/2018 15:18:00 23:59:59 CLS Outpatient DEFFENBAUGH DO NICOLA D [facility] [address] ENTYBIO [id number] 08/12/2018 15:30:00 018 15:30:00 CAN Preadmit NICOLA PETERSON DO D [facility] [address] [place] K50.90 [id number] 06/10/2018 15:54:00 018 23:59:59 CLS Outpatient DEFFENBANICOLA COPELAND DO D [facility] [address] IV INFUSION [id number] 04/15/2018 16:00:00 018 00:01:00 DIS Outpatient DEFFENBAUGH NICOLA HEART D [facility] [address] [place] K50.90 [id number] 02/18/2018 15:36:00 018 00:01:00 DIS Outpatient DEFFENBANICOLA COPELAND DO D [facility] [address] [place] K50.90 [id number] 10/25/2017 15:42:00 018 23:59:59 CLS Outpatient DEFFENBAUGH NICOLA HEART D [facility] [address] [place] K56.90 [id number] 08/20/2017 16:04:00 017 23:59:59 CLS Outpatient DEFFENBANICOLA COPELAND DO D [facility] [address] [place] [id number] 06/22/2017 19:42:00 017 22:27:00 DIS Emergency LATIA WHITE DO [facility] ER LEFT ARM INJ [id number] 06/11/2017 15:40:00 017 23:59:59 CLS Outpatient DEFFENBAUGH NICOLA HEART D [facility] [address] CHRONS [id number] 04/13/2017 15:49:00 017 23:59:59 CLS Outpatient DEFFENBADINORAH NICOLA HEART D [facility] [address] [place] [id number] 02/22/2017 19:17:00 017 22:30:00 DIS Emergency CHARLES WORTHY, JIAN Tsai [facility] ER RLQ PAIN [id number] 02/16/2017 10:06:00 017 23:59:59 CLS Outpatient NICOLA PETERSON DO [facility] [address] [place] [id number] 12/16/2016 14:08:00 017 23:59:59 CLS Outpatient NICOLA PETERSON DO [facility] [address] [place] K50.90 [id number] 10/19/2016 15:54:00 017 17:00:00 DIS Outpatient NICOLA PETERSON DO [facility] [address] [place] [id number] 08/24/2016 15:30:00 017 00:01:00 DIS Outpatient NICOLA PETERSON DO [facility] [address] [place] [id number] 04/27/2016 17:49:00 016 23:59:59 CLS Outpatient VISHAL LAMBERT DO [facility] RAD SEVERE ABD PAIN 3 DAYS [id number] 11/30/2011 15:47:00 Document Registration
--- OUTSIDE RECORDS SUMMARY | 2020-04-04 00:44 | XMS REPORT ---
Author Author [employer] [place] [facility] [place] Address [address] [address] Care Team Providers Care Staff Services Manager Name Role Phone VISHAL LAMBERT Unavailable NICOLA PETERSON DO D Unavailable Unavailable FAUSTO HEART VISHAL L Unavailable Unavailable CHARLES WORTHY, JIAN Tsai Unavailable Unavailable BRE WORTHY, YOVANY [place] Unavailable Unavailable Migration, Doctor Unavailable Unavailable LIVAN PETERSON DORY D Unavailable Unavailable FAUSTO DO VISHAL L Unavailable Unavailable CHARLES WORTHY, JIAN Tsai Unavailable Unavailable JELANI WORTHY, HIMA Spring Unavailable Unavailable KELECHI ELLIOTT APRN Unavailable Unavailable CINDY DOLATIA K Unavailable Unavailable COSENS, DO L VISHAL PCP Unavailable Unavailable Unavailable Unavailable Unavailable Unavailable Unavailable Unavailable Allergies The data below is from unstructured sourcesNo known allergies.No known allergies.No known allergies.No known allergies.No known allergies. No Information No InformationNo known allergies.No known allergies. Encounters Encounter Date Encounter Type Encounter Diagnosis Care Provider Facility Start: Emergency department DO VISHAL LAMBERT [facility] 04-03-2020 [facility] End: 04-03-2020 Start: Emergency department HIMA PALOMARES MD [facility] V sc 04-03-2020 patient visit [facility] End: 04-03-2020 Start: Patient encounter NICOLA PETERSON [facility] Vi a 06-23-2019 procedure DO [facility] [place] Start: Patient encounter NICOLAROGER PETERSON [facility] V ia 04-28-2019 procedure [facility] ([id number]) Start: Patient encounter NICOLA PETERSON [facility] V ia 02-03-2019 procedure [facility] ([id number]) Start: Patient encounter NICOLAROGER NIXBADINORAH [facility] 02-03-2019 procedure DO [facility] Start: Patient encounter NICOLA PETERSON DO Not A vailable ([id number]) 12-09-2018 procedure Start: Patient encounter NICOLA [facility]BADINORAH [facility] 12-09-2018 procedure DO [facility] Start: Patient encounter NICOLA PETERSON DO Not A vailable ([id number]) 10-10-2018 procedure Start: Patient encounter NICOLA [facility]INORAH [facility] 10-10-2018 procedure DO [facility] [place] Start: Patient encounter 08-12-2018 procedure Start: Patient encounter NICOLA [facility]BADINORAH [facility] 08-12-2018 procedure DO [facility] Start: Patient encounter NICOLA PETERSON 06-10-2018 procedure Start: Patient encounter NICOLA [facility]INORAH [facility] 06-10-2018 procedure DO [facility] Start: Patient encounter NICOLA N[facility]BADINORAH [facility] 04-15-2018 procedure DO [facility] End: 04-19-2018 Start: Patient encounter 02-18-2018 procedure Start: Patient encounter NICOLA [facility]BADINORAH [facility] 02-18-2018 procedure DO [facility] End: 03-23-2018 Start: Patient encounter 12-24-2017 procedure Start: Patient encounter 10-25-2017 procedure Start: Patient encounter NICOLA [facility]IXBADINORAH [facility] 10-25-2017 procedure DO [facility] Start: Patient encounter 08-20-2017 procedure Start: Patient encounter NICOLA NIXBADINORAH [facility] Vi a 08-20-2017 procedure DO [facility] [place] Start: Emergency department 06-22-2017 patient visit End: 06-22-2017 Start: Patient encounter 06-22-2017 procedure Start: Emergency department LATIA WHITE DO [facility] 06-22-2017 patient visit [facility] End: 06-22-2017 Start: Patient encounter NICOLA PETERSON DO Not A vailable ([id number]) 06-16-2017 procedure Start: Patient encounter 06-11-2017 procedure Start: Patient encounter NICOLA PETERSON [facility] 06-11-2017 procedure DO [facility] Start: Patient encounter NICOLA PETERSON DO Not A vailable ([id number]) 04-13-2017 procedure Start: Patient encounter NICOLA PETERSON [facility] 04-13-2017 procedure DO [facility] Start: Emergency department JIAN SOTO [facility] 02-22-2017 patient visit [facility] End: 02-22-2017 Start: Patient encounter NICOLA PETERSON [facility] 02-16-2017 procedure DO [facility] Start: Patient encounter NICOLA PETERSON DO Not A vailable ([id number]) 12-16-2016 procedure Start: Patient encounter NICOLA PETERSON [facility] 12-16-2016 procedure DO [facility] Start: Patient encounter NICOLA PETERSON DO Not A vailable ([id number]) 10-19-2016 procedure End: 10-19-2016 Start: Patient encounter NICOLA PETERSON VC Vi a 10-19-2016 procedure DO [facility] End: 10-19-2016 Start: Patient encounter NICOLA PETERSON DO Not A vailable ([id number]) 09-28-2016 procedure Start: Patient encounter 08-24-2016 procedure End: 09-27-2016 Start: Patient encounter VISHAL LAMBERT DO Not Availa ble ([id number]) 04-27-2016 procedure Start: Patient encounter VISHAL LAMBERT DO [facility] 04-27-2016 procedure [facility] Start: Patient encounter YOVANY DÍAZ MD Not Avai lable ([id number]) 11-30-2011 procedure Patient encounter procedure Medical Equipment The data below is from unstructured sourcesNo Medical Equipment Information available Goals Date Patient Goal Desired Activity/St ate Immunizations Immunizatio Immunization Notes Care Provider Facility n Date 06-22-2017 tetanus toxoid, reduced diphtheria toxoid, and acellular pertussis vaccine, adsorbed Interventions No Information Medications Medication Drug Dates Sig Sig (Original) Class(es) (Normalized) amoxicillin 875 mg / Penicillin Start: Amoxicill in/Potassium Clav Active 1 ORAL clavulanate 125 mg oral -class 04-03-2020 Twice A Day April 03, 2020 7:43pm tablet Antibacter (1 source) ial Payers Date Payer Normalized Payer [id number] Plan of Treatment Date Care Activity Detail Author Patient Education [facility] ([id number]) Patient referral [facility] ([id number]) Problems Active Problems Problem Problem Date Last Documented Episodic/Chr Provider Classificati Recorded Date onic on E Codes: Contact with other sharp object(s), 04-03-2020 Epi sodic LATIA CINDY DO Cut/pierceb not elsewhere classified, i nitial (10 sources) encounter Nausea and Vomiting, unspecified 04-03-2020 Episodic BREN T COSENS vomiting DO (10 sources) Open wounds Laceration without foreign body of 04-03-2020 Epis odic LATIA CINDY DO of left forearm, initial encou nter extremities (10 sources) Other Encounter for therapeutic drug 04-03-2020 Episodic NICOLA aftercare level monitoring DEFFENBAUGH (2 sources) DO Other Personal history of other diseases 04-03-2020 Epis odic JIAN gastrointest of the digestive system CHARLES banda MD disorders (19 sources) Other Diarrhea, unspecified 04-03-2020 Episodic BREN T COSENS gastrointest DO inal disorders (10 sources) Other Unspecified injury of left forearm, 04-03-2020 Epi sodic LATIA CINDY DO injuries and initial encounter conditions due to external causes (10 sources) Unclassified Medication given DO VISHAL (2 sources) COSENS Work Phone: Past or Other Problems Problem Problem Date Last Documented Episodic/Chr Provider Classificati Recorded Date onic on E Codes: Unspecified accident Episodic YOVANY Natural/envi BRE palmer (3 sources) E Codes: Activities involving basketball ; Episodic YOVANY Unspecified Translations: [ACTIVITIES INVOLVING BRE WORTHY (5 sources) BASKETBALL] Joint Other tear of cartilage or meniscus Episodic YOVANY disorders of knee, current BRE WORTHY and dislocations ; trauma-relat ed (3 sources) Procedures Date Procedure Procedure Detail Performing Cl inician Start: Computed DO VISHAL COSENS 04-03-2020 tomography of Work Phone: abdomen and pelvis with contrast Results Test Name Value Interpreta Reference Facilit Date tion Range y Time laboratory on 2020-04-03 Albumin [Mass/Vol] 4.2 g/dL Negative 3.2-4.5 PENDING - 5-2 g/dL [facility] 020 [facility] 14:45-0 ([id number]) 400 ALP [Catalytic 96 U/L Negative 40-136 U/L PENDING activity/Vol] [facility] 020 [facility] 14:45-0 ([id number]) 400 ALT [Catalytic 46 U/L Negative 0-55 U/L PENDING activity/Vol] [facility] 020 [facility] 14:45-0 ([id number]) 400 Anion gap 13 mmol/L Negative 5-14 PENDING [Moles/Vol] mmol/L [facility] 020 [facility] 14:45-0 ([id number]) 400 AST [Catalytic 21 U/L Negative 5-34 U/L PENDING activity/Vol] [facility] 020 [facility] 14:45-0 ([id number]) 400 Bacteria LM Ql Negative Invalid PENDING (Urine sed) Interpreta [facility] 020 tion Code [facility] 14:51-0 ([id number]) 400 Basophils (Bld) 0.0 10*3/uL Negative 0.0-0.1 PENDING 04-03 [#/Vol] 10*3/uL [facility] 020 [facility] 14:45-0 ([id number]) 400 Basophils/100 WBC 0 % Negative 0-10 % PENDING 04-03 (Bld) [facility] 020 [facility] 14:45-0 ([id number]) 400 Bilirubin [Mass/Vol] 0.4 mg/dL Negative 0.1-1.0 PENDING mg/dL [facility] 020 [facility] 14:45-0 ([id number]) 400 Bilirubin Ql (U) Negative Invalid NEGATIVE PENDING Interpreta LOC[facility] 020 tion Code [facility] 14:51-0 ([id number]) 400 Calcium [Mass/Vol] 9.4 mg/dL Negative 8.5-10.1 PENDING 03-20 5-2 mg/dL [facility] 020 [facility] 14:45-0 ([id number]) 400 Calcium [Mass/Vol] 9.2 mg/dL Negative 8.5-10.1 PENDING 07-1 5-2 mg/dL LOC[facility] 020 [facility] 14:45-0 ([id number]) 400 Casts LM Ql (Urine NONE Invalid PENDING sed) Interpreta LOCAT[facility] 020 tion Code [facility] 14:51-0 ([id number]) 400 Chloride [Moles/Vol] 102 mmol/L Negative 98-107 PENDING 0 7-15-2 mmol/L [facility]ATIO 020 [facility] 14:45-0 ([id number]) 400 Clarity (U) CLEAR Invalid PENDING Interpreta LOCAT[facility] 020 tion Code [facility] 14:51-0 ([id number]) 400 CO2 [Moles/Vol] 23 mmol/L Negative 21-32 PENDING 04-03-2 mmol/L LOCAT[facility] 020 [facility] 14:45-0 ([id number]) 400 Color (U) YELLOW Invalid PENDING Interpreta LOCATIO 020 tion Code [facility] 14:51-0 ([id number]) 400 Creatinine 1.35 mg/dL High 0.60-1.30 PENDING -15-2 [Mass/Vol] mg/dL [facility] 020 [facility] 14:45-0 ([id number]) 400 Creatinine and > Invalid PENDING 04-03-2 Glomerular Interpreta LOCATIO 020 filtration tion Code [facility] 14:45-0 rate.predicted panel ([id number]) 400 - Serum, Plasma or Blood CRP [Mass/Vol] 8.53 High 0.00-0.50 PENDING 15-2 mg/dL [facility] 020 [facility] 14:45-0 ([id number]) 400 Crystals LM Ql NONE Invalid PENDING (Urine sed) Interpreta LOCATIO 020 tion Code [facility] 14:51-0 ([id number]) 400 Eosinophils (Bld) 0.1 10*3/uL Negative 0.0-0.3 PENDING -2 [#/Vol] 10*3/uL LOCATIO 020 [facility] 14:45-0 ([id number]) 400 Eosinophils/100 WBC 1 % Negative 0-10 % PENDING (Bld) [facility] 020 [facility] 14:45-0 ([id number]) 400 Epithelial RARE Invalid PENDING cells.squamous LM Ql Interpreta LOCATIO 020 (Urine sed) tion Code N [facility] 14:51-0 ([id number]) 400 Erythrocyte 12.9 % Negative 10.0-14.5 PENDING distribution width % LOCATIO 020 (RBC) [Ratio] N [facility] 14:45-0 ([id number]) 400 Glucose [Mass/Vol] 106 mg/dL High 70-105 PENDING 03-20 5-2 mg/dL [facility] 020 [facility] 14:45-0 ([id number]) 400 Glucose Auto test Negative Invalid NEGATIVE PENDING 04-03 strip Ql (U) Interpreta LOCATIO 020 tion Code N [facility] 14:51-0 ([id number]) 400 Hematocrit (Bld) 43 % Negative 40-54 % PENDING [Volume fraction] [facility] 020 [facility] 14:45-0 ([id number]) 400 Hemoglobin (Bld) 14.7 g/dL Negative 13.3-17.7 PENDING 04-03- [Mass/Vol] g/dL [facility] 020 [facility] 14:45-0 ([id number]) 400 Ketones Auto test Negative Invalid NEGATIVE PENDING 04-03 strip Ql (U) Interpreta LOCATIO 020 tion Code N [facility] 14:51-0 ([id number]) 400 Leukocyte esterase Negative Invalid NEGATIVE PENDING 03-20- Test strip Ql (U) Interpreta LOCATIO 020 tion Code N [facility] 14:51-0 ([id number]) 400 Lymphocytes (Bld) 2.2 10*3/uL Negative 1.0-4.0 PENDING [#/Vol] 10*3 LOC[facility]IO 020 [facility] 14:45-0 ([id number]) 400 Lymphocytes/100 WBC 17 % Negative 12-44 % PENDING -2 (Bld) LOC[facility]IO 020 [facility] 14:45-0 ([id number]) 400 MCH (RBC) [Entitic 26 pg Negative 25-34 pg PENDING 03-20 5-2 mass] [facility] 020 [facility] 14:45-0 ([id number]) 400 MCHC (RBC) 34 g/dL Negative 32-36 g/dL PENDING [Mass/Vol] LOCATIO 020 [facility] 14:45-0 ([id number]) 400 MCV (RBC) [Entitic 76 Low 80-99 PENDING - 5-2 vol] [foz_us] LOCATIO 020 [facility] 14:45-0 ([id number]) 400 Monocytes (Bld) 1.2 10*3/uL High 0.0-1.0 PENDING 04-03 [#/Vol] 10*3 LOCATIO 020 [facility] 14:45-0 ([id number]) 400 Monocytes/100 WBC 9 % Negative 0-12 % PENDING 04-03 (Bld) LOCATIO 020 [facility] 14:45-0 ([id number]) 400 Mucus Ql (Urine sed) SMALL Abnormal PENDING 04-03 [facility] 020 [facility] 14:51-0 ([id number]) 400 Neutrophils (Bld) 9.5 10*3/uL High 1.8-7.8 PENDING [#/Vol] 10*3 LOC[facility] 020 [facility] 14:45-0 ([id number]) 400 Neutrophils/100 WBC 72 % Negative 42-75 % PENDING (Bld) [facility] 020 [facility] 14:45-0 ([id number]) 400 Nitrite Ql (U) Negative Invalid NEGATIVE PENDING Interpreta [facility] 020 tion Code N [facility] 14:51-0 ([id number]) 400 pH (U) 7.0 [pH] Invalid 5-9 PENDING Interpreta [facility] 020 tion Code N [facility] 14:51-0 ([id number]) 400 Platelet mean volume 9.6 Negative 7.4-10.4 PENDING (Bld) [Entitic vol] [foz_us] LOCATIO 020 [facility] 14:45-0 ([id number]) 400 Platelets (Bld) 413 10*3/uL High 130-400 PENDING 04-03 [#/Vol] 10*3/uL LOCATIO 020 [facility] 14:45-0 ([id number]) 400 Potassium 3.7 mmol/L Negative 3.6-5.0 PENDING [Moles/Vol] mmol/L [facility] 020 [facility] 14:45-0 ([id number]) 400 Protein [Mass/Vol] 8.4 g/dL High 6.4-8.2 PENDING - 5-2 g/dL [facility] 020 [facility] 14:45-0 ([id number]) 400 Protein Ql (U) Negative Invalid NEGATIVE PENDING Interpreta LOCATIO 020 tion Code N [facility] 14:51-0 ([id number]) 400 RBC (Bld) [#/Vol] 5.69 10*6/uL Negative 4.35-5.85 PENDING 10*6/uL [facility] 020 [facility] 14:45-0 ([id number]) 400 RBC LM.HPF (Urine RARE Invalid PENDING sed) [#/Area] Interpreta [facility] 020 tion Code N [facility] 14:51-0 ([id number]) 400 RBC Ql (U) TRACE-I Invalid NEGATIVE PENDING Interpreta LOC[facility]IO 020 tion Code N [facility] 14:51-0 ([id number]) 400 Sodium [Moles/Vol] 138 mmol/L Negative 135-145 PENDING mmol/L [facility] 020 [facility] 14:45-0 ([id number]) 400 Specific gravity (U) 1.020 Invalid 1.016-1.02 PENDING 0 [Rel density] Interpreta 2 [facility] 020 tion Code N [facility] 14:51-0 ([id number]) 400 Urea nitrogen 11 mg/dL Negative 7-18 mg/dL PENDING [Mass/Vol] LOCATIO 020 [facility] 14:45-0 ([id number]) 400 Urea 8 mg/mg Invalid PENDING nitrogen/Creatinine Interpreta LOCATIO 020 [Mass ratio] tion Code N [facility] 14:45-0 ([id number]) 400 Urinalysis complete NO Invalid PENDING W Reflex Culture Interpreta LOC[facility] 020 panel - Urine tion Code N [facility] 14:51-0 ([id number]) 400 Urobilinogen (U) 0.2 mg/dL Invalid < = 1.0 PENDING [Mass/Vol] Interpreta mg/dL [facility] 020 tion Code N [facility] 14:51-0 ([id number]) 400 WBC (Bld) [#/Vol] 13.2 10*3/uL High 4.3-11.0 PENDING 10*3/uL LOCATIO 020 N S 14:45-0 ([id number]) 400 WBC LM.HPF (Urine NONE Invalid PENDING sed) [#/Area] Interpreta LOC[facility]IO 020 tion Code N [facility] 14:51-0 ([id number]) 400 Social History Date Type Detail Facility Start: Tobacco smoking status NHIS Never smoked tobac co [facility] 04-03-2020 ([facility] ([id number]) Start: Occasionally Uses [facility]-03-[facility] ([id number]) Start: Never a Smoker [facility] 04-03-[facility] ([id number]) Start: No [facility] 04-03-2020 [facility] ([id number]) Start: Denies [facility] 04-03-2020 [facility] ([id number]) Start: Sex Assigned At Male [facility] 1995 [facility] ([id number]) Vital Signs The data below is from unstructured sources Vital Response Date/Time Temperature (Fahrenheit) 97.7 degree s F (97.6 - 99.5) 02/22/2017 7:30pm Temperature (Calculated Celsius) 36. 93470 degrees C (36.4 - 37.5) 02/22/2017 7:30pm Temperature Source Temporal 02/22/2017 7:30pm Pulse Rate (adult) 85 bpm (60 - 90) 02/22/2017 7:30pm Respiratory Rate 18 bpm (12 - 24) 02/22/2017 7:30pm O2 Sat by Pulse Oximetry 97 % (88 - 100) 02/22/2017 7:30pm Blood Pressure 147/87 mm Hg 02/22/2017 7:30pm Blood Pressure Mean 107 mm Hg 02/22/2017 7:30pm Pain Numeric Pain Scale 7 7:30pm Height (Feet) 6 feet 01/2017 7:30pm Height (Inches) 0 inches 02/22/2017 7:30pm Height (Calculated Centimeters) 182. 641423 cm 02/22/2017 7:30pm Weight (Pounds) 210 pounds 02/22/2017 7:30pm Weight (Ounces) 0.0 oz 0 02/16/2017 10:10am Weight (Calculated Grams) 67764.252 gm 02/16/2017 10:10am Weight (Calculated Kilograms) 95.254 399 kilograms 02/22/2017 7:30pm Calculated BMI 27.7 01/20 10:10am Capillary Refill Capillary Refill Less Than 3 Seconds 02/22/2017 7:30pm Vital Response Date/Time Height 6 ft 0 in 018 5:21pm Weight 200 lb 12/24/2017 5:21pm Body Mass Index 27.1 kg/m^2 02/18/2018 4:44pm Vital Response Date/Time Temperature (Fahrenheit) 97.8 degree s F (97.6 - 99.5) 06/10/2018 5:10pm Temperature Source Temporal 06/10/2018 5:10pm Pulse Rate (adult) 62 bpm (60 - 90) 06/10/2018 5:10pm Respiratory Rate 18 bpm (12 - 24) 06/10/2018 5:10pm O2 Sat by Pulse Oximetry 99 % (88 - 100) 06/10/2018 5:10pm Blood Pressure 118/71 mm Hg 06/10/2018 5:10pm Blood Pressure Mean 87 mm Hg (65 - 110) 06/10/2018 5:10pm Pain Numeric Pain Scale 0-No Pain 06/10/2018 5:10pm Height (Feet) 6 feet 5:10pm Height (Inches) 0.00 inches 06/10/2018 5:10pm Height (Calculated Centimeters) 182. 410793 cm 06/10/2018 5:10pm Weight (Pounds) 200 pounds 06/10/2018 5:10pm Weight (Ounces) 0.0 oz 0 06/10/2018 5:10pm Weight (Calculated Grams) 76559.475 gm 06/10/2018 5:10pm Weight (Calculated Kilograms) 90.718 475 kilograms 06/10/2018 5:10pm Capillary Refill Capillary Refill Less Than 3 Seconds 06/10/2018 5:10pm Height 6 ft 0 in 018 4:56pm Weight 200 lb 06/10/2018 4:56pm Body Mass Index 27.1 kg/m^2 06/10/2018 5:10pm Vital Reading Result Col lection Date/Time Vital Reading Result Col lection Date/Time Functional Status The data below is from unstructured sourcesNo functional status information available.No functional status information available.No functional status information available.No functional status information available.No functional status information available.No Functional Status info rmation availableNo Functional Status information available Mental Status The data below is from unstructured sourcesNo Mental Status Information Available Evaluation note Note Date & Note Facility Type Evaluation No Assessments Information Available [facility] Via note [facility] ([id number]) Advance Directives Directive Response Recor ded Date/Time Advance Directives No 7:30pm Organ Donor No 02/22/17 7:30pm Resuscitation Status Full Code 02/22/17 7:30pm Directive Response Recor ded Date/Time Advance Directives No 5:21pm Health Care Power of Saturation Equipment Operator No 08/20/17 5:21pm Organ Donor No 08/20/17 5:21pm Advance Directive Response Recorded Date/Time Advance Directives No 2019 6:47pm Health Care Power of Saturation Equipment Operator No April 03, 2020 6:47pm Organ Donor No March 6:47pm Resuscitation Status Full Code April 03, 2020 6:47pm Discharge Instructions No hospital discharge instruction information available.No hospital discharge instruction information available.Current inpatient/outpatient. Discharge instructions are currently unavailable. Chief Complaint and Reason for Visit Chief Complaint Abdominal/GI Problem s Reason for Visit [id number] Additional Source Comments This clinical document has been generated using [employer] software that has been certified by the Office of the National Coordinator for Health Information Technology (ONC 15.99.04.3023.Diam.31.00.0.705226) and the National Committee for Chief Unit Forester (NCQA, as an eMeasure certified technology). FOR RECORDS PERTAINING TO PATIENTS WHO ARE OR HAVE BEEN ENROLLED IN A CHEMICAL D EPENDENCY/SUBSTANCE ABUSE PROGRAM, SOME INFORMATION MAY BE OMITTED. This clinica l summary was aggregated from multiple sources. Caution should be exercised in using it in the provision of clinical care. This summary normalizes information from multiple sources, and as a consequence, information in this document may ma terially change the coding, format and clinical context of patient data. In carlie tion, data may be omitted in some cases. CLINICAL DECISIONS SHOULD BE BASED ON T HE PRIMARY CLINICAL RECORDS. [employer] provides no warranty or guara ntee of the accuracy or completeness of information in this document.The followi ng information is based on time limited clinical information UNRECOGNIZED CONTENT PROVIDED BELOW FOR UNRECOGNIZED SECTION REASON FOR VISIT EMR-Timmy
== END 2020-04-03 20:01 | disposition home or self-care (01) ==
LOC: EDUNIT# 18:37 → ER 18:39
DX: K50.90 Crohn's disease, unspecified, without complications (principal); Z79.52 Long term (current) use of systemic steroids
CPT/HCPCS: 36415; 74177; 80053; 81000; 85025; 86141

== ENCOUNTER 2020-05-31 14:55 | Outpatient (RCR) | payer BC, OTHER ==
[2020-05-17] MEDS: VEDOLIZUMAB 300 MG/NS 250 ML IVPB IV SCH ×2 (16:03)
[2020-05-17 16:07] VITALS: BP 118/79
[~2020-05-31] VITALS: Ht 180.3 cm; Wt 102800.0 kg
[2020-05-31 14:55] VITALS: BP 119/79
[~2020-05-31 14:55] MED LIST changes: +AMOX-358 PO; +PRED10TA22 PO
[2020-05-31] MEDS: VEDOLIZUMAB 300 MG/NS 250 ML IVPB IV SCH ×2 (15:31)
== END 2020-08-15 | disposition home or self-care (01) ==
LOC: SDC 14:55
PROVIDERS: ATTEND Internal Medicine Gastroenterology
DX: K50.90 Crohn's disease, unspecified, without complications (principal)
CPT/HCPCS: 96365; J3380

== ENCOUNTER 2020-07-05 14:26 | Observation (INO) | payer BC ==
[~2020-07-05] VITALS: Ht 182.9 cm; Wt 106.8 kg
[2020-07-05] MEDS ORDERED: LACTATED RINGERS 1,000 ML IV ONE (15:12)
[2020-07-05 15:23] LABS: BILIRUBIN,URINE NEGATIVE (NEGATIVE); CLARITY,URINE CLEAR; COLOR,URINE YELLOW; GLUCOSE, URINE (UA) NEGATIVE (NEGATIVE); KETONES,URINE NEGATIVE (NEGATIVE); LEUKOCYTE ESTERASE ,URINE NEGATIVE (NEGATIVE); NITRITE,URINE NEGATIVE (NEGATIVE); PH,URINE 6.5 (5-9); PROTEIN,URINE NEGATIVE (NEGATIVE)
[2020-07-05 15:26] LABS: ALBUMIN 4.1 GM/DL (3.2-4.5); CHLORIDE 99 MMOL/L (98-107); POTASSIUM 4.1 MMOL/L (3.6-5.0); SODIUM 135 MMOL/L (135-145)
[2020-07-05 15:27] LABS: CALCIUM 9.8 MG/DL (8.5-10.1)
[2020-07-05 15:28] LABS: GLUCOSE 117 MG/DL (70-105)
[2020-07-05 15:29] LABS: TOTAL PROTEIN 8.5 GM/DL (6.4-8.2)
[2020-07-05 15:30] LABS: BILIRUBIN,TOTAL 0.6 MG/DL (0.1-1.0); CARBON DIOXIDE 24 MMOL/L (21-32)
[2020-07-05 15:32] LABS: ALKALINE PHOSPHATASE 94 U/L (40-136); CREATININE SERUM 1.04 MG/DL (0.60-1.30); GFR ESTIMATED > 60
--- NOTE | 2020-07-05 15:32 | ED Abdominal Pain ---
General Chief Complaint: Abdominal/GI Problems Stated Complaint: STOMACH PAIN Nursing Triage Note: pt presents to ed with complaints of r lower quadrant pain since 2300 last night. pt reports feeling constipated and took miralax with no relief. pt states pain is minimal when he is not moving but increased with walking or activity. pt denies n/v/d. Sepsis Screen: No Definite Risk (KELECHI BYERS MED STUDENT) History of Present Illness Date Seen by Provider: Jul 05, 2020 Time Seen by Provider: 14:55 Initial Comments Devante is a 25 yo M with history of Crohn's who presents with complaint of abdominal pain. The patient is on maintanence therapy for Crohn's consisting of Folate, Prednisone, MTX, and Entyvio infusions q8 weeks. He states he felt fine when he fell asleep at 9 pm last night, but awoke at 11pm last night with maxi mal intensity stabbing RLQ abdominal pain which has been constant since, preventing sleep. The patient also complains of decreased bowel output compared to normal over the past several days, even with taking Miralax earlier this morning. He states his current pain feels similar to prior Crohn's episodes, but whereas those have resolved after 2-3 hours, typically with clearing out his bowels, the current episode has persisted. The patient denies fever, chills, nausea, vomiting, abdominal bloating, diarrhea, feelings of constipation, dark/bloody stooling, chest pain, SOB, and back pain. No prior surgeries including appendectomy or cholecystectomy. (KELECHI BYERS MED STUDENT) Allergies and Home Medications Allergies Coded Allergies: No Known Drug Allergies (Unverified , 06/29/16) Home Medications Amoxicillin/Potassium Clav 1 Each Tablet, 1 EACH PO BID Prescribed by: KELECHI ELLIOTT on 04/03/201942 Budesonide 3 Mg Capdr...er, 9 MG PO DAILY, (Reported) Ciprofloxacin HCl 500 Mg Tablet, 500 MG PO BID Prescribed by: JIAN KRAMER on 02/22/172225 Hydrocodone Bit/Acetaminophen 1 Each Tablet, 1 EACH PO Q4H PRN for PAIN Prescribed by: JIAN KRAMER on 02/22/172225 Methotrexate Tablet 2.5 Mg Tablet, 5 MG PO WEEK, (Reported) Metronidazole 500 Mg Tablet, 500 MG PO TID Prescribed by: JIAN KRAMER on 02/22/172225 Omeprazole 40 Mg Capsule.dr, 40 MG PO DAILY, (Reported) Prednisone 20 Mg Tab, 60 MG PO DAILY Prescribed by: JIAN KRAMER on 02/22/172225 Prednisone 10 Mg Tab.ds.pk, 10 MG PO DAILY Take 6 tabs(60mg)daily,decrease by 1 tab(10mg)every other day. Prescribed by: KELECHI ELLIOTT on 04/03/201942 Sulfamethoxazole/Trimethoprim 1 Each Tablet, 1 EACH PO BID Prescribed by: LATIA WHITE on 06/22/172200 Patient Home Medication List Home Medication List Reviewed: Yes (JIAN SOTO MD) Review of Systems Review of Systems Constitutional: No chills, No fever Respiratory: Denies Cough, Denies Shortness of Air Cardiovascular: Denies Chest Pain Gastrointestinal: Denies Abdomen Distended; Abdominal Pain; Denies Blood Streaked Stools, Denies Constipated (denies constipation but states decreased output compared to normal), Denies Diarrhea, Denies Nausea, Denies Rectal Bleeding Genitourinary: Denies Burning, Denies Frequency, Denies Flank Pain, Denies Hematuria Musculoskeletal: No back pain Skin: No rash (KELECHI BYERS STUDENT) Past Iwtqpzn-Qnnynl-Kscbua Hx Patient Social History Alcohol Use: Occasionally Uses Number of Drinks Today: AA Alcohol Beverage of Choice: Beer Recreational Drug Use: No Smoking Status: Never a Smoker 2nd Hand Smoke Exposure: No Recent Foreign Travel: No Contact w/Someone Who Travel: No Recent Infectious Disease Expo: No Recent Hopitalizations: No Physical Abuse: No Sexual Abuse: No Mistreated: No Fear: No (KELECHI BYERS STUDENT) Immunizations Up To Date Tetanus Booster (TDap): More than 5yrs (KELECHI BYERS) Seasonal Allergies Seasonal Allergies: No (KELECHI BYERS) Past Medical History Surgeries: Yes ("FISTULA'S TIED OFF."; COLONOSCOPIES) Respiratory: No Currently Using CPAP: No Currently Using BIPAP: No Cardiac: No Neurological: No Reproductive Disorders: No Genitourinary: No 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 0.0oz. [id number]; 31.00 BMI Method:Stated General Appearance: WD/WN, no apparent distress HEENT: PERRL/EOMI Respiratory: chest non-tender, lungs clear, normal breath sounds, no respiratory distress, no accessory muscle use Cardiovascular: regular rate, rhythm, no edema, no JVD, no murmur, gallop/S3 Gastrointestinal: normal bowel sounds; No distended; guarding; No rebound; tenderness (Mild RUQ. Moderate to severe RLQ abdominal tenderness. No McBurney's point tenderness. Negative Joseph's sign. ) Extremities: no pedal edema Back: normal inspection, no CVA tenderness, no vertebral tenderness Neurologic/Psychiatric: alert, normal mood/affect, oriented x 3 Skin: normal color, warm/dry (KELECHI BYERS MED STUDENT) Focused Exam Lactate Level 07/05/20 17:13: Lactic Acid Level 0.84 (JIAN SOTO MD) Lactic Acid Level Laboratory Tests Test 07/05/20 17:13 Lactic Acid Level 0.84 MMOL/L (0.50-2.00) (JIAN SOTO MD) Progress/Results/Core Measures Results/Orders Lab Results Laboratory Tests Test 07/05/20 14:58 07/05/20 15:13 07/05/20 17:13 Range/Units White Blood Count 18.2 H 4.3-11.0 10^3/uL Red Blood Count 5.92 H 4.30-5.52 10^6/uL Hemoglobin 14.1 13.3-17.7 g/dL Hematocrit 44 40-54 % Mean Corpuscular Volume 75 L 80-99 fL Mean Corpuscular Hemoglobin 24 L 25-34 pg Mean Corpuscular Hemoglobin Concent 32 32-36 g/dL Red Cell Distribution Width 14.9 H 10.0-14.5 % Platelet Count 439 H 130-400 10^3/uL Mean Platelet Volume 9.3 9.0-12.2 fL Immature Granulocyte % (Auto) 1 % Neutrophils (%) (Auto) 88 H 42-75 % Lymphocytes (%) (Auto) 7 L 12-44 % Monocytes (%) (Auto) 4 0-12 % Eosinophils (%) (Auto) 0 0-10 % Basophils (%) (Auto) 0 0-10 % Neutrophils # (Auto) 16.1 H 1.8-7.8 10^3/uL Lymphocytes # (Auto) 1.3 1.0-4.0 10^3/uL Monocytes # (Auto) 0.7 0.0-1.0 10^3/uL Eosinophils # (Auto) 0.0 0.0-0.3 10^3/uL Basophils # (Auto) 0.0 0.0-0.1 10^3/uL Immature Granulocyte # (Auto) 0.2 H 0.0-0.1 10^3/uL Neutrophils % (Manual) 88 % Lymphocytes % (Manual) 8 % Monocytes % (Manual) 2 % Band Neutrophils 2 % Spherocytes SLIGHT Erythrocyte Sedimentation Rate 4 0-15 MM/HR Sodium Level 135 135-145 MMOL/L Potassium Level 4.1 3.6-5.0 MMOL/L Chloride Level 99 98-107 MMOL/L Carbon Dioxide Level 24 21-32 MMOL/L Anion Gap 12 5-14 MMOL/L Blood Urea Nitrogen 9 7-18 MG/DL Creatinine 1.04 0.60-1.30 MG/DL Estimat Glomerular Filtration Rate > 60 BUN/Creatinine Ratio 9 Glucose Level 117 H 70-105 MG/DL Calcium Level 9.8 8.5-10.1 MG/DL Corrected Calcium 9.7 8.5-10.1 MG/DL Total Bilirubin 0.6 0.1-1.0 MG/DL Aspartate Amino Transf (AST/SGOT) 10 5-34 U/L Alanine Aminotransferase (ALT/SGPT) 43 0-55 U/L Alkaline Phosphatase 94 40-136 U/L C-Reactive Protein High Sensitivity 14.45 H 0.00-0.50 MG/DL Total Protein 8.5 H 6.4-8.2 GM/DL Albumin 4.1 3.2-4.5 GM/DL Urine Color YELLOW Urine Clarity CLEAR Urine pH 6.5 5-9 Urine Specific [place] 1.010 L 1.016-1.022 Urine Protein NEGATIVE NEGATIVE Urine Glucose (UA) NEGATIVE NEGATIVE Urine Ketones NEGATIVE NEGATIVE Urine Nitrite NEGATIVE NEGATIVE Urine Bilirubin NEGATIVE NEGATIVE Urine Urobilinogen 0.2 < = 1.0 MG/DL Urine Leukocyte Esterase NEGATIVE NEGATIVE Urine RBC (Auto) NEGATIVE NEGATIVE Urine RBC NONE /HPF Urine WBC NONE /HPF Urine Crystals NONE /LPF Urine Bacteria NEGATIVE /HPF Urine Casts NONE /LPF Urine Mucus NEGATIVE /LPF Urine Culture Indicated NO Lactic Acid Level 0.84 0.50-2.00 MMOL/L (JIAN SOTO MD) My Orders Orders - JIAN SOTO MD Ed Iv/Invasive Line Start (07/05/20 15:10) Cbc With Automated Diff (07/05/20 15:10) Comprehensive Metabolic Panel (07/05/20 15:10) Hs C Reactive Protein (07/05/20 15:10) Ua Culture If Indicated (07/05/20 15:10) Erythrocyte Sedimentation Rate (07/05/20 15:10) Ed Iv/Invasive Line Start (07/05/20 15:12) Lactated Ringers (Lr 1000 Ml Iv Solution (07/05/20 15:12) Manual Differential (07/05/20 14:58) Ct Abd/Pelv W (Appendicitis) (07/05/20 15:56) Iohexol Injection (Omnipaque 350 Mg/Ml 1 (07/05/20 16:15) Received Contrast (Hold Metformin- Contr (07/05/20 16:15) Ns (Ivpb) (Sodium Chloride 0.9% Ivpb Bag (07/05/20 16:15) Meropenem (Merrem 1000 Mg) (07/05/20 17:00) Blood Culture (07/05/20 16:58) Vital Signs Adult Sepsis Patie Q15M (07/05/20 16:58) Remove Rings In Anticipation O (07/05/20 16:58) Lactic Acid Analyzer (07/05/20 16:58) (JIAN SOTO MD) Medications Given in ED Current Medications Medications Dose Ordered Sig/Sukumar Route Start Time Stop Time Status Last Admin Dose Admin Iohexol 100 ml ONCE ONCE IV 07/05/20 16:15 07/05/20 16:16 DC 07/05/20 16:15 100 ML Lactated Ringer's 1,000 ml @ 0 mls/hr Q0M ONCE IV 07/05/20 15:12 07/05/20 15:14 DC 07/05/20 15:20 0 MLS/HR Meropenem 1000 mg/ Sterile Water 20 ml @ 240 mls/hr ONCE ONCE IV 07/05/20 17:00 07/05/20 17:04 DC 07/05/20 18:01 240 MLS/HR Sodium Chloride 100 ml ONCE ONCE IV 07/05/20 16:15 07/05/20 16:16 DC 07/05/20 16:15 80 ML (JIAN SOTO MD) Vital Signs/I&O 07/05/20 14:42 Temp 36.6 Pulse 105 Resp 17 B/P (MAP) 133/96 (108) Pulse Ox 96 (JIAN SOTO MD) Blood Pressure Mean: 108 Progress Progress Note : Time: 15:36 Progress Note Devante is a 25 yo M with known history of Crohn's who presents with 15 hours of RLQ abdominal pain and decreased bowel output. The patient is afebrile but borderline tachycardic with right abdominal tenderness and some RLQ guarding. No point tenderness at McBurney's. Differential includes Crohn's flare up, perforation, appendicitis, cholecystitis, choledocholithiasis, ureterolithiasis, bowel obstipation/constipation, colitis. Lower suspicion for cystitis or py elonephritis without CVA tenderness. Will obtain CBC, CMP, CRP, ESR, UA and start fluids as the patient is tachycardic. Will reassess and consider CT scan with the patient when lab results are back. (KELECHI BYERS MED STUDENT) Departure Communication (Admissions) Time/Spoke to Admitting Phy: 17:13 Dr. SEO (JIAN SOTO MD) Impression Primary Impression: Exacerbation of Crohn's disease Qualified Codes: K50.913 - Crohn's disease, unspecified, with fistula Additional Impressions: RLQ abdominal pain Leukocytosis Qualified Codes: D72.829 - Elevated white blood cell count, unspecified Disposition: ADMITTED INPATIENT Condition: Improved Admissions Decision to Admit Reason: Admit from ER (General) Decision to Admit/Date: Jul 05, 2020 Time/Decision to Admit Time: 17:15 (JIAN SOTO MD) Departure-Patient Inst. Referrals: VISHAL LAMBERT DO (PCP/Family) Primary Care Physician I have personally interviewed and examined this patient along with Param Byers MS3. I reviewed his documentation and agree with his history, ph ysical, and assessment except were otherwise noted. Exam: Gen.: Alert, oriented, no acute distress HEENT: Normocephalic and atraumatic Heart: tachycardia without murmur lungs: Clear to auscultation bilaterally with normal effort Abdomen: Soft, normal bowel sounds, severe tenderness with guarding in the right lower quadrant, less tender in the right upper quadrant, nondistended Extremities: Normal to inspection, and no edema Neuropsych: Alert, oriented, no focal deficits Patient was noted to have significant leukocytosis and elevated CRP along with severe right lower quadrant tenderness. CT was then felt necessary. This was discussed with the patient and he agreed. CT revealed marketed inflammation in the right lower quadrant and a possible fistula. Appendix was affected proximally but not distally. No perforation was identified. Due to the severity of the lab values and pain the patient is experiencing as well as the unusual CT findings, I discussed the case with Dr. Seo. He recommended admission with IV antibiotics overnight. Patient was a reluctant to be admitted but eventually did agree. Lactic acid and blood cultures were drawn in the ER and he was started on meropenem. (JIAN SOTO MD) KELECHI BYERS MED STUDENT Jul 05, 2020 15:32 JIAN SOTO MD Jul 05, 2020 18:46
[2020-07-05 15:33] LABS: BUN/CREATININE RATIO 9
[2020-07-05 15:35] LABS: ALANINE AMINOTRANSFERASE 43 U/L (0-55)
[2020-07-05 15:43] LABS: BASOPHILS % (AUTO) 0 % (0-10); EOSINOPHILS % (AUTO) 0 % (0-10); HEMATOCRIT 44 % (40-54); HEMOGLOBIN 14.1 g/dL (13.3-17.7); LYMPHOCYTES # (AUTO) 1.3 10^3/uL (1.0-4.0); LYMPHOCYTES % (AUTO) 7 % (12-44); MEAN CORPUSCULAR HEMOGLOBIN 24 pg (25-34); MEAN CORPUSCULAR HGB CONC 32 g/dL (32-36); MEAN CORPUSCULAR VOLUME 75 fL (80-99); MEAN PLATELET VOLUME 9.3 fL (9.0-12.2); MONOCYTES # (AUTO) 0.7 10^3/uL (0.0-1.0); MONOCYTES % (AUTO) 4 % (0-12); NEUTROPHILS # (AUTO) 16.1 10^3/uL (1.8-7.8); NEUTROPHILS % (AUTO) 88 % (42-75); PLATELET COUNT 439 10^3/uL (130-400); WHITE BLOOD COUNT 18.2 10^3/uL (4.3-11.0)
[2020-07-05 15:44] LABS: BACTERIA,URINE NEGATIVE /HPF
[2020-07-05 16:08] LABS: BAND NEUTROPHILS 2 %; LYMPHOCYTES % (MANUAL) 8 %; MONOCYTES % (MANUAL) 2 %; NEUTROPHILS % (MANUAL) 88 %; SPHEROCYTES SLIGHT
[2020-07-05 16:10] LABS: ERYTHROCYTE SEDIMENTATION RATE 4 MM/HR (0-15)
[2020-07-05] MEDS ORDERED: NS 100 ML (IVPB) BAG IV ONE (16:15)
[2020-07-05] MEDS ORDERED: HOLD METFORMIN - RECEIVED CONTRAST 20 ML VIAL IV SCH (16:15)
[2020-07-05] MEDS ORDERED: IOHEXOL 350 MG/ML 100 ML (OMNIPAQUE 350) VIAL IV ONE (16:15)
--- NOTE | 2020-07-05 16:48 | Diagnostic Imaging Report ---
EXAMINATION: CT Abdomen and Pelvis with intravenous contrast. TECHNIQUE: Multiple contiguous axial images were obtained through the abdomen and pelvis after the uneventful administration of intravenous contrast. All CT scans use one or more of the following dose optimizing techniques: automated exposure control, MA and/or KvP adjustment based on a patient size and exam type, or iterative reconstruction. HISTORY: RLQ pain, history of Crohn's disease. COMPARISON: CT abdomen/pelvis 04/03/2020. FINDINGS: Lung bases: The lung bases are clear. Solid organs: The liver is normal without focal lesion. The gallbladder is normal. There is no biliary ductal dilation. Pancreas is normal. Spleen is normal. Adrenal glands are normal. The kidneys are normal without hydronephrosis. Bowel: Stomach is unremarkable. There is redemonstrated multifocal wall thickening, enhancement, inflammatory stranding within the right lower quadrant. There is multifocal tethering and likely fistula tracks between multiple loops of small bowel and the cecum in the right lower quadrant (series 604 image 40). There is likely reactive inflammation of the proximal appendix, although the distal appendix remains normal in caliber without significant inflammatory stranding. Inflammation is greatest within the terminal ileum. The remainder of the colon is unremarkable. No bowel obstruction. Peritoneum: Inflammation within the right lower quadrant centered around the loops of small bowel and cecum as described above. No intraperitoneal free air or free fluid. No suspicious lymphadenopathy. Vasculature: Normal without aneurysm. Musculoskeletal: No suspicious osseous lesion or compression fracture. Pelvis: The prostate gland is normal. There is inflammation of the superior aspect of the urinary bladder with likely tethering and possibly a fistulous tract within the cecum (series 601 image 42). This finding is slightly more pronounced on today's exam compared to 04/03/2020. IMPRESSION: 1. Findings of active inflammatory bowel disease involving the cecum, terminal ileum, and a few loops of small bowel within the right lower quadrant compatible with history of Crohn's disease. There is complex tethering and possible fistula between the cecum, small bowel, and urinary bladder. No abscess. 2. Mild inflammation of the proximal appendix is likely reactive. The distal appendix is unremarkable, and not felt to represent acute appendicitis. Dictated by: Dictated on workstation # [id number]
[2020-07-05] MEDS ORDERED: MEROPENEM 1,000 MG in WATER (STERILE) FOR INJECTION 20 ML IV ONE (17:00)
--- NOTE | 2020-07-05 19:32 | Discharge Inst-Surgical ---
D/C Lap Instructions-ANGELINE New, Converted, or Re-Newed RX: RX on Chart Follow Up Appt in 2 weeks Activity as tolerated Low residue diet. Avoid Alcohol, Caffeine, Spicy [place] and Acid foods. Drink 64 fluid oz or more of fluids per day. Symptoms to Report: Fever over 101 degree F, Nausea/Vomiting If any problems/questions: Contact your physician or go to Emergency Room TESHA MARCUS MD Jul 05, 2020 19:32
[2020-07-05 19:46] VITALS: BP 143/94
--- NOTE | 2020-07-05 19:51 | HISTORY AND PHYSICAL ---
DATE OF SERVICE: ATTENDING PRIMARY CARE PHYSICIAN: Dr. Lukasz Martinez. HISTORY OF PRESENT ILLNESS: The patient is a 25-year-old male with a history of Crohn's disease. We had seen him in the past for perianal manifestations of Crohn's disease requiring anal exam under anesthesia as well as placement of a Seton suture. Since that time, he has been seeing gastroenterology and has been treated with methotrexate, prednisone as well as Entyvio. He reports that he felt fine last night; however, woke up with sharp pain in the right lower abdominal quadrant. He also reports that he has been having diarrhea more frequently than normal. A CT scan was performed, which did show inflammation of the terminal ileum and cecum consistent with acute flareup of Crohn's disease. PAST MEDICAL HISTORY: Crohn's disease. PAST SURGICAL HISTORY: Anal exam under anesthesia and placement of Seton suture. ALLERGIES: No known drug allergies. MEDICATIONS: Augmentin b.i.d., budesonide 3 mg daily, ciprofloxacin 500 mg b.i.d., hydrocodone p.r.n., methotrexate 5 mg weekly, metronidazole mg t.i.d., omeprazole 40 mg daily, prednisone 30 mg daily, Bactrim b.i.d. SOCIAL HISTORY: Negative smoke, social alcohol. FAMILY HISTORY: Noncontributory. VITAL SIGNS: Temperature 36.6, blood pressure 133/96, pulse 105, respirations 17, pulse ox 96% on room air. REVIEW OF SYSTEMS: Well-nourished male, currently in no acute distress. He is not experiencing any shortness of breath or difficulty breathing. No chest pain, palpitations, diaphoresis. No nausea, vomiting with frequent episodes of loose stools. He states that there might be small amounts of red blood accompanied with loose stools. He does have pain in the right lower abdominal quadrant. No fever, chills, no recent inadvertent weight loss. All other review of systems negative. PHYSICAL EXAMINATION: CHEST: Clear. Good breath sounds bilaterally. HEART: Regular, no murmurs. EXTREMITIES: No lower extremity edema, negative Homans sign. HEENT: No scleral icterus. NECK: No cervical lymphadenopathy. ABDOMEN: Soft, nondistended. There is pain in the right lower abdominal quadrant with voluntary guarding, no rebound. No hernias. SKIN: Warm, dry. LABORATORY DATA: WBC 18.2, hemoglobin 14.1, hematocrit 44, platelets 439. BUN 9, creatinine 1.04. Urinalysis negative. ASSESSMENT AND PLAN: A 25-year-old male with acute exacerbation of Crohn's disease involving the terminal ileum as well as the cecum. We will treat him conservatively with continuation of his previous medications as well as meropenem IV as well as bowel rest. Due to the complexity of his Crohn's disease, once the inflammation subsides, we will likely refer him back to gastroenterology and if he does require surgery which would encompass fistulization, obstruction or copious bleeding, we would refer him to an inflammatory bowel disease specialist. Job ID: [id number] DocumentID: [id number] Dictated Date: 07/05/2020 18:09:12 Household Appliance Assembler Date: 07/05/2020 18:45:16 Dictated By: TESHA MARCUS MD
[2020-07-05 20:00] VITALS: BP 143/94
[2020-07-05] MEDS ORDERED: ONDANSETRON 4 MG/2 ML (SDV) Z0FRAN IV PRN (21:30)
[2020-07-05] MEDS ORDERED: HYDROcodone/APAP 5 MG/325 MG (LORTAB) TAB PO PRN (21:30)
[2020-07-05] MEDS ORDERED: fentaNYL INJECTION 100 MCG/2 ML AMP IV PRN (21:30)
[2020-07-05] MEDS: predniSONE 10 MG TAB PO SCH (21:35)
[2020-07-05] MEDS: LACTATED RINGERS 1,000 ML IV SCH (21:35)
--- NOTE | 2020-07-05 22:08 | NUR ---
MICHELLE JIMENEZ Cande admitted to room 413-1, with an admitting diagnosis of Exacerbation of Chron's disease, Leukocytosis, and RLQ abdominal pain, on 07/05/20 from ER via wheelchair, accompanied by staff. MICHELLE JIMENEZ introduced to surroundings, call light, bed controls, phone, TV, temperature control, lights, meal times, smoking policy, visitor policy, side rail policy, bathrooms and showers. Patient Rights given to patient in the handbook. MICHELLE JIMENEZ verbalizes understanding that [facility] is not responsible for the loss or damage to any personal effects or valuables that are kept in the patients posession during their hospitalization.
[2020-07-05 23:55] VITALS: BP 123/82
[2020-07-05] MEDS: MEROPENEM 500 MG/SWFI 10 ML IV PUSH IV SCH ×2 (23:59)
[2020-07-06 04:21] VITALS: BP 119/82
[2020-07-06] MEDS: LACTATED RINGERS 1,000 ML IV SCH (04:23)
[2020-07-06] MEDS: MEROPENEM 500 MG/SWFI 10 ML IV PUSH IV SCH ×2 (06:00)
[2020-07-06] MEDS: predniSONE 10 MG TAB PO SCH (06:00)
[2020-07-06 06:07] LABS: BASOPHILS % (AUTO) 0 % (0-10); EOSINOPHILS % (AUTO) 0 % (0-10); HEMATOCRIT 41 % (40-54); HEMOGLOBIN 12.8 g/dL (13.3-17.7); LYMPHOCYTES # (AUTO) 1.6 10^3/uL (1.0-4.0); LYMPHOCYTES % (AUTO) 13 % (12-44); MEAN CORPUSCULAR HEMOGLOBIN 24 pg (25-34); MEAN CORPUSCULAR HGB CONC 31 g/dL (32-36); MEAN CORPUSCULAR VOLUME 76 fL (80-99); MEAN PLATELET VOLUME 9.1 fL (9.0-12.2); MONOCYTES # (AUTO) 0.8 10^3/uL (0.0-1.0); MONOCYTES % (AUTO) 6 % (0-12); NEUTROPHILS # (AUTO) 10.2 10^3/uL (1.8-7.8); NEUTROPHILS % (AUTO) 80 % (42-75); PLATELET COUNT 364 10^3/uL (130-400); WHITE BLOOD COUNT 12.7 10^3/uL (4.3-11.0)
[2020-07-06 06:29] LABS: ALBUMIN 3.8 GM/DL (3.2-4.5); CHLORIDE 99 MMOL/L (98-107); POTASSIUM 4.2 MMOL/L (3.6-5.0); SODIUM 136 MMOL/L (135-145)
[2020-07-06 06:30] LABS: CALCIUM 9.5 MG/DL (8.5-10.1)
[2020-07-06 06:31] LABS: GLUCOSE 106 MG/DL (70-105); TOTAL PROTEIN 7.8 GM/DL (6.4-8.2)
[2020-07-06 06:32] LABS: CARBON DIOXIDE 27 MMOL/L (21-32)
[2020-07-06 06:33] LABS: BILIRUBIN,TOTAL 0.6 MG/DL (0.1-1.0)
[2020-07-06 06:35] LABS: ALKALINE PHOSPHATASE 85 U/L (40-136); CREATININE SERUM 0.84 MG/DL (0.60-1.30); GFR ESTIMATED > 60
[2020-07-06 06:36] LABS: BUN/CREATININE RATIO 10
[2020-07-06 06:38] LABS: ALANINE AMINOTRANSFERASE 32 U/L (0-55)
[2020-07-06 08:00] VITALS: BP 119/80
[2020-07-06 08:34] VITALS: BP 119/80
[2020-07-06] MEDS ORDERED: FOLIC ACID 1 MG TAB PO SCH (09:00)
== END 2020-07-06 08:34 | disposition home or self-care (01) ==
LOC: EDUNIT# 14:26 → ER 14:27 → 4TH 18:45
PROVIDERS: ADMIT Surgery; ATTEND Surgery
DX: K50.80 Crohn's disease of both small and large intestine without complications (principal); D72.829 Elevated white blood cell count, unspecified; Z79.52 Long term (current) use of systemic steroids
CPT/HCPCS: 36415; 74177; 80053; 81000; 83605; 85007; 85025; 85027; 85652; 86141; 87040

== ENCOUNTER 2020-07-12 14:56 | Outpatient (CLI) | payer BC ==
[~2020-07-12] VITALS: Ht 175 cm; Wt 102000.0 kg
[2020-07-12] MEDS ORDERED: VEDOLIZUMAB 300 MG/NS 250 ML IVPB IV SCH ×2 (15:08)
[2020-07-12 16:00] VITALS: BP 148/84
[2020-07-12 16:11] VITALS: BP 148/84
== END 2020-07-12 16:10 ==
LOC: SDC 14:56
PROVIDERS: ATTEND Internal Medicine Gastroenterology
DX: K50.90 Crohn's disease, unspecified, without complications (principal); Z79.899 Other long term (current) drug therapy
CPT/HCPCS: 96365; J3380

== ENCOUNTER 2020-11-08 15:20 | Outpatient (RCR) | payer BC, OTHER ==
[2020-09-10] MEDS: VEDOLIZUMAB 300 MG/NS 250 ML IVPB IV SCH ×2 (15:41)
[2020-09-10 16:12] VITALS: BP 133/90
[~2020-11-08] VITALS: Ht 175 cm; Wt 102.0 kg
[~2020-11-08 15:20] MED LIST changes: +VEDOLIZUMAB 300 MG/NS 250 ML IVPB IV SCH
[2020-11-08] MEDS: VEDOLIZUMAB 300 MG/NS 250 ML IVPB IV SCH ×2 (15:45)
[2020-11-08 15:49] VITALS: BP 119/78
== END 2020-11-08 16:21 | disposition home or self-care (01) ==
LOC: SDC 15:20
PROVIDERS: ATTEND Internal Medicine Gastroenterology
DX: K50.90 Crohn's disease, unspecified, without complications (principal)
CPT/HCPCS: 96365; J3380

== ENCOUNTER 2021-01-10 06:42 | Outpatient (RCR) | payer BC ==
[~2021-01-10] VITALS: Ht 182.9 cm; Wt 104.5 kg
[~2021-01-10 06:42] MED LIST changes: -OMEP40CA27 PO; +OMEP40CA6 PO; -SULF1TAB35 PO; +SULF1TAB38 PO; -VEDOLIZUMAB 300 MG/NS 250 ML IVPB IV SCH
[2021-01-10 06:45] VITALS: BP 136/98
[2021-01-10] MEDS ORDERED: VEDOLIZUMAB 300 MG/NS 250 ML IVPB IV SCH ×2 (07:00)
== END 2021-04-10 | disposition home or self-care (01) ==
LOC: SDC 06:42
PROVIDERS: ATTEND Internal Medicine Gastroenterology
DX: K50.90 Crohn's disease, unspecified, without complications (principal)
CPT/HCPCS: 96365; J3380

== ENCOUNTER → 2021-02-28 | Outpatient (CLI) | payer BC | LOC: LAB 14:16 | DX: Z53.9 Procedure and treatment not carried out, unspecified reason (principal) ==

== ENCOUNTER → 2021-03-04 | Outpatient (CLI) | payer BC ==
[~2021-03-04] MED LIST changes: +OMEP40CA27 PO; -OMEP40CA6 PO; +SULF1TAB35 PO; -SULF1TAB38 PO
[2021-03-04 16:49] LABS: BASOPHILS % (AUTO) 0 % (0-10); EOSINOPHILS # (AUTO) 0.1 10^3/uL (0.0-0.3); EOSINOPHILS % (AUTO) 1 % (0-10); HEMATOCRIT 43 % (40-54); HEMOGLOBIN 13.7 g/dL (13.3-17.7); LYMPHOCYTES # (AUTO) 1.5 10^3/uL (1.0-4.0); LYMPHOCYTES % (AUTO) 10 % (12-44); MEAN CORPUSCULAR HEMOGLOBIN 25 pg (25-34); MEAN CORPUSCULAR HGB CONC 32 g/dL (32-36); MEAN CORPUSCULAR VOLUME 77 fL (80-99); MEAN PLATELET VOLUME 8.9 fL (9.0-12.2); MONOCYTES % (AUTO) 7 % (0-12); NEUTROPHILS # (AUTO) 12.2 10^3/uL (1.8-7.8); NEUTROPHILS % (AUTO) 82 % (42-75); PLATELET COUNT 438 10^3/uL (130-400); WHITE BLOOD COUNT 14.9 10^3/uL (4.3-11.0)
[2021-03-04 17:01] LABS: BILIRUBIN,URINE NEGATIVE (NEGATIVE); CLARITY,URINE CLEAR; COLOR,URINE YELLOW; GLUCOSE, URINE (UA) NEGATIVE (NEGATIVE); KETONES,URINE NEGATIVE (NEGATIVE); LEUKOCYTE ESTERASE ,URINE NEGATIVE (NEGATIVE); NITRITE,URINE NEGATIVE (NEGATIVE); PROTEIN,URINE NEGATIVE (NEGATIVE)
[2021-03-04 17:07] LABS: BACTERIA,URINE NEGATIVE /HPF
[2021-03-04 17:18] LABS: BAND NEUTROPHILS 1 %; LYMPHOCYTES % (MANUAL) 9 %; MONOCYTES % (MANUAL) 5 %; NEUTROPHILS % (MANUAL) 85 %
[2021-03-04 17:19] LABS: ANISOCYTOSIS SLIGHT; HYPOCHROMASIA SLIGHT; MICROCYTOSIS SLIGHT
== END ==
LOC: LAB 16:21
PROVIDERS: ATTEND Internal Medicine Gastroenterology
DX: R35.0 Frequency of micturition (principal); R10.9 Unspecified abdominal pain; R79.89 Other specified abnormal findings of blood chemistry
CPT/HCPCS: 36415; 81000; 85007; 85027

== ENCOUNTER → 2021-03-07 | Outpatient (CLI) | payer BC ==
[~2021-03-07] MED LIST changes: +VEDOLIZUMAB 300 MG/NS 250 ML IVPB IV SCH
[2021-03-07 12:54] VITALS: BP 120/83
== END ==
LOC: SDC 12:20 → EDSTATUS 14:00
PROVIDERS: ATTEND Internal Medicine Gastroenterology
DX: K50.90 Crohn's disease, unspecified, without complications (principal)
CPT/HCPCS: 96365; J3380

== ENCOUNTER 2021-05-09 12:16 | Outpatient (RCR) | payer BC ==
[2021-05-09 12:15] VITALS: BP 115/73
[~2021-05-09 12:16] MED LIST changes: -OMEP40CA27 PO; +OMEP40CA6 PO; -SULF1TAB35 PO; +SULF1TAB38 PO; -VEDOLIZUMAB 300 MG/NS 250 ML IVPB IV SCH
[2021-05-09] MEDS ORDERED: VEDOLIZUMAB 300 MG/NS 250 ML IVPB IV SCH ×2 (12:30)
== END 2021-05-09 13:25 | disposition home or self-care (01) ==
LOC: SDC 12:16
PROVIDERS: ATTEND Internal Medicine Gastroenterology
DX: K50.90 Crohn's disease, unspecified, without complications (principal)
CPT/HCPCS: 96365; J3380

== ENCOUNTER → 2021-08-11 | Outpatient (CLI) | payer BC ==
--- NOTE | 2021-08-11 13:42 | Diagnostic Imaging Report ---
INDICATION: History of Crohn's disease with a 1 month history of dysuria. Patient also has a questionable vesicocolonic fistula. TECHNIQUE: Precontrast axial imaging through the pelvis was performed. Next, a Coronado catheter was inserted into the urinary bladder. 180 mL's of Cystografin contrast and water was infused into the urinary bladder through the Coronado. Axial imaging through the pelvis was then performed. Next, the Coronado catheter was removed and the patient voided. Post void axial images through the pelvis were performed. Sagittal and coronal reconstructions were also performed. COMPARISON: 07/05/2020. FINDINGS: Precontrast images again demonstrate marked inflammatory changes in the right lower quadrant involving the cecum and terminal ileum. There is some tethering of bowel loops. There also appears to be involvement of a segment of the sigmoid colon which is thick-walled and shows surrounding inflammation. There does appear to be some thickening near the dome of the urinary bladder; however, the cystogram and post void images through the pelvis do not show any abnormal communication of contrast from the bladder into a fistulous tract. No fluid collection is seen. There is no free fluid. IMPRESSION: Marked inflammatory changes in the right lower quadrant involve the cecum and distal small bowel loops as well as a portion of the sigmoid colon, consistent with the patient's diagnosis of Crohn's disease. There is some thickening of the dome of the urinary bladder; however, no fistulous communication is identified on the CT cystogram images. Dictated by: Dictated on workstation # [id number]
== END ==
LOC: RAD 12:45
PROVIDERS: ATTEND Urology
DX: Z87.19 Personal history of other diseases of the digestive system (principal)
CPT/HCPCS: 72192

== ENCOUNTER 2021-08-18 05:41 | Outpatient (CLI) | payer BC ==
[~2021-08-18] VITALS: Ht 182.9 cm; Wt 90.9 kg
[2021-08-19] MEDS ORDERED: FOLI1TAB33 PO (09:38)
[2021-08-19] MEDS ORDERED: HYDR-3817 PO (09:38)
[2021-08-19] MEDS ORDERED: VEDO300V IV (09:38)
[2021-08-19] MEDS ORDERED: ACET325T38 PO (09:38)
== END 2021-08-19 09:49 | disposition home or self-care (01) ==
LOC: PREOP 05:41
PROVIDERS: ATTEND Urology
DX: Z01.818 Encounter for other preprocedural examination (principal)

== ENCOUNTER 2021-08-20 06:12 | Day surgery (SDC) | payer BC ==
[2021-08-20] VITALS (9 sets, daily range): BP systolic 104–134; BP diastolic 60–89
[~2021-08-20] VITALS: Ht 182 cm; Wt 90.9 kg
[~2021-08-20 06:12] MED LIST changes: +ACET325T38 PO; +FOLI1TAB33 PO; +HYDR-3817 PO; +VEDO300V IV
[2021-08-20] MEDS ORDERED: LACTATED RINGERS 1,000 ML IV PRN (06:45)
[2021-08-20] MEDS ORDERED: cefTRIAXone 1 GM PRE-MIX 50 ML IV ONE (06:45)
--- NOTE | 2021-08-20 07:44 | Progress Note-Pre Operative ---
Pre-Operative Progress Note H&P Reviewed The H&P was reviewed, patient examined and no changes noted. 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
--- NOTE | 2021-08-20 08:35 | Progress Note-Post Operative ---
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
--- NOTE | 2021-08-20 08:40 | Discharge Inst-Urology ---
Discharge Inst-Urology Reconcile Patient Problems Problems Reviewed?: Yes Final Diagnosis UTI'S AND POSSIBLE VESISOCOLONIC FISTULA Patient Instructions/Follow Up Plan/Assessment/Instructions Please make appointment to been seen in office in 2 weeks. Increase oral fluids for 48 hours and then as needed. Diet and Activity as tolerated. If questions or concerns contact your physician Or seek help at emergency department. BALA ANDRE MD Aug 20, 2021 08:40
[2021-08-20] MEDS ORDERED: DIATRIZOATE 30% 300 ML (CYSTOGRAFIN) VIAL UR ONE (08:45)
--- NOTE | 2021-08-20 08:57 | Anesthesia-General Post-Op ---
General Patient Condition Mental Status/LOC: Same as Preop Cardiovascular: Satisfactory Nausea/Vomiting: Absent Respiratory: Satisfactory Pain: Controlled Complications: Absent Post Op Complications Complications None Follow Up Care/Instructions Patient Instructions None needed. Anesthesia/Patient Condition Patient Condition Patient is doing well, no complaints, stable vital signs, no apparent adverse anesthesia problems. No complications reported per nursing. KM SUMNER CRNA Aug 20, 2021 08:57
--- NOTE | 2021-08-20 10:06 | Diagnostic Imaging Report ---
PROCEDURE: CT abdomen and pelvis without contrast. TECHNIQUE: Multiple contiguous axial images were obtained through the abdomen and pelvis without the use of intravenous contrast. Auto Exposure Controls were utilized during the CT exam to meet ALARA standards for radiation dose reduction. INDICATION: Colovesical fistula. FINDINGS: The previous CT cystogram of 08/11/2021 failed to show any abnormal communication of the contrast within the bladder into a fistulous tract. There was marked inflammatory change involving the right lower quadrant, however. By history, the patient has a diagnosis of Crohn's. The fluoroscopic exam performed earlier today failed to show any evidence for extravasation of the contrast or for a colovesical fistula. On this exam, there is still a small amount of residual contrast within the bladder. The bladder is not well distended and difficult to assess but there is no evidence of extravasation of the contrast to suggest that the bladder wall is compromised. There is no sign of a colovesical fistula either. As on the prior exam, there is considerable distortion of the mesenteric fat in the lower pelvis and right lower quadrant. This does seem similar to the prior exam. There is still no mass or abscess identified. The right ureter and right renal pelvis are dilated. This finding is also similar to the prior exam. I suspect that the distal right ureter may be compressed by the edema/inflammation involving the mesentery in the right lower quadrant. There is no acute abnormality identified otherwise. There is a 1 mm nonobstructive calculus within the left kidney. The lung bases are clear. The bone windows show no sign of a fracture or of a destructive lesion. IMPRESSION: 1. There is no extravasation of the contrast from the bladder and there is no sign of a colovesical fistula. 2. There is persistent distortion of the mesenteric fat in the low pelvis and the right lower quadrant due to edema/inflammation. This may be related to the patient's diagnosis of Crohn's disease. There is also partial obstruction of the right collecting system. Most likely, this too is related to the edema/inflammation in the right lower quadrant. 3. There is no acute abnormality noted otherwise. 4. These results were discussed with Dr. Beckford. Dictated by: Dictated on workstation # [id number]
--- NOTE | 2021-08-20 10:36 | Diagnostic Imaging Report ---
EXAMINATION: Fluoroscopy. INDICATION: Colovesical fistula. TECHNIQUE: Fluoroscopic assistance was provided for Dr. Beckford. 32 seconds of fluoroscopy time was utilized. FINDINGS: The previous CT cystogram of 08/11/2021 failed to show any sign of an abnormal communication between the bladder and the bowel. For this study, two images were obtained. The initial image reveals that the bladder has been opacified by contrast. There is no extravasation of the contrast to suggest that the bladder wall has been compromised or that there is a colovesical fistula. The final image was taken after the contrast had been removed. There is a small amount of residual contrast about the Coronado catheter but there is no evidence for extravasation. IMPRESSION: 1. There is no sign of extravasation or of a colovesical fistula. 2. If further study is desired, then a CT of the abdomen and pelvis would be recommended. 3. These results were discussed with Dr. Beckford. Dictated by: Dictated on workstation # [id number]
--- NOTE | 2021-08-20 14:59 | OPERATIVE REPORT ---
DATE OF SERVICE: 08/20/2021 PREOPERATIVE DIAGNOSIS: History of urinary tract infections, possible vesicocolonic fistula. POSTOPERATIVE DIAGNOSIS: History of urinary tract infections, possible vesicocolonic fistula. OPERATION PERFORMED: Cystoscopy and cystogram. SURGEON: Payam Andre MD ANESTHESIA: General. COMPLICATIONS: None. DESCRIPTION OF PROCEDURE: Under satisfactory general anesthesia, the patient in lithotomy position, genitalia were prepped and draped in the usual sterile fashion. Cystoscope was introduced under vision. The anterior urethra was normal. The prostate was small. The bladder neck was open. Bladder revealed diffuse edema and friable tissue, bleeding easily on touch, very difficult to see really anything in the bladder. I tried to irrigate to clear, did not help, so I removed the cystoscope, inserted an 18-Bulgarian Coronado catheter and performed a cystogram. There was a question fistulous communication after emptying the bladder contrast, however, it also coincide with some contrast in the bladder. I removed the Coronado catheter. The patient tolerated the procedure and anesthesia well and was sent to recovery room in stable condition. I went to x-ray and discussed it with Dr. Phelps, who recommended to obtain a noncontrast CT of the pelvis as soon as the patient wakes up in recovery room. We will do that and see if there is any contrast going through the colon. It is also mentioned that the patient is on methotrexate, which can affect the bladder. We will have to check with his physician if they can hold the methotrexate and we will start him on Macrobid b.i.d. until I see him back in 2 weeks. Job ID: [id number] DocumentID: [id number] Dictated Date: 08/20/2021 08:45:16 Missionary Coordinator Date: 08/20/2021 14:58:22 Dictated By: PAYAM ANDRE MD
== END 2021-08-20 10:05 ==
LOC: SDC 06:12
PROVIDERS: ATTEND Urology
DX: N39.0 Urinary tract infection, site not specified (principal); K21.9 Gastro-esophageal reflux disease without esophagitis; K50.90 Crohn's disease, unspecified, without complications; Z79.899 Other long term (current) drug therapy; Z79.891 Long term (current) use of opiate analgesic
CPT/HCPCS: 74176; 76000; 87081

== ENCOUNTER 2021-08-29 06:46 | Outpatient (RCR) | payer BC ==
[2021-07-04 07:00] VITALS: BP 116/73
[2021-07-04] MEDS: VEDOLIZUMAB 300 MG/NS 250 ML IVPB IV SCH ×2 (07:20)
[~2021-08-29] VITALS: Ht 182 cm; Wt 104.5 kg
[2021-08-29 07:00] VITALS: BP 118/72
[2021-08-29] MEDS: VEDOLIZUMAB 300 MG/NS 250 ML IVPB IV SCH ×2 (07:18)
== END 2021-09-19 | disposition home or self-care (01) ==
LOC: SDC 06:46
PROVIDERS: ATTEND Internal Medicine Gastroenterology
DX: K50.90 Crohn's disease, unspecified, without complications (principal)
CPT/HCPCS: 96365; J3380

== ENCOUNTER → 2021-10-24 | Outpatient (CLI) | payer BC ==
[~2021-10-24] VITALS: Ht 182.9 cm; Wt 104.5 kg
[~2021-10-24] MED LIST changes: +VEDOLIZUMAB 300 MG/NS 250 ML IVPB IV SCH
[2021-10-24 10:25] VITALS: BP 125/85
== END ==
LOC: SDC 10:06 → EDSTATUS 14:00
PROVIDERS: ATTEND Internal Medicine Gastroenterology
DX: K50.90 Crohn's disease, unspecified, without complications (principal)
CPT/HCPCS: 96365; J3380

== ENCOUNTER 2021-12-19 08:09 | Outpatient (RCR) | payer BC ==
[~2021-12-19 08:09] MED LIST changes: -VEDOLIZUMAB 300 MG/NS 250 ML IVPB IV SCH
[2021-12-19] MEDS ORDERED: VEDOLIZUMAB 300 MG/NS 250 ML IVPB IV SCH ×2 (08:30)
[2021-12-19 09:02] VITALS: BP 110/77
== END 2022-01-17 | disposition home or self-care (01) ==
LOC: SDC 08:09
PROVIDERS: ATTEND Internal Medicine Gastroenterology
DX: K50.919 Crohn's disease, unspecified, with unspecified complications (principal)
CPT/HCPCS: 96365; J3380

== ENCOUNTER 2022-02-12 06:31 | Outpatient (RCR) | payer BC ==
[~2022-02-12] VITALS: Wt 104.5 kg
[2022-02-12 07:00] VITALS: BP 111/76
[2022-02-12] MEDS ORDERED: VEDOLIZUMAB 300 MG/NS 250 ML IVPB IV SCH ×2 (07:00)
== END 2022-02-17 | disposition home or self-care (01) ==
LOC: SDC 06:31
PROVIDERS: ATTEND Internal Medicine Gastroenterology
DX: K50.919 Crohn's disease, unspecified, with unspecified complications (principal)
CPT/HCPCS: 96365; J3380

== ENCOUNTER 2022-04-02 06:33 | Outpatient (RCR) | payer BC ==
[2022-04-02 06:55] VITALS: BP_SYST 0; BP_SYST 117; BP_DIAS 2; BP_DIAS 70
[2022-04-02] MEDS ORDERED: VEDOLIZUMAB 300 MG/NS 250 ML IVPB IV SCH ×2 (07:00)
== END 2022-04-19 | disposition home or self-care (01) ==
LOC: SDC 06:33
PROVIDERS: ATTEND Internal Medicine Gastroenterology
DX: K50.919 Crohn's disease, unspecified, with unspecified complications (principal)
CPT/HCPCS: 96365; J3380

== ENCOUNTER → 2022-04-09 | Outpatient (CLI) | payer BC ==
[~2022-04-09] MED LIST changes: +BARIUM for suspension 96% w/w (Vanilla Silq Medium Density) PO ONE; +BARIUM for suspension 98% w/w (Vanilla Silq High Density) PO ONE
--- NOTE | 2022-04-09 10:55 | Diagnostic Imaging Report ---
Indication: History of Crohn's disease. Patient does complain of some vomiting. The patient ingested effervescent crystals as well as thin and thick barium and imaging of the esophagus and stomach as well as proximal small bowel was performed. Preliminary radiograph of the abdomen is unremarkable. The esophagus has a smooth contour. No mass or stricture is identified. No hiatal hernia or gastroesophageal reflux was demonstrated. The stomach is normal in configuration. No mass or ulceration is seen. There is prompt emptying into the small bowel. The duodenal bulb is without deformity. IMPRESSION: Unremarkable upper GI study. Dictated by: Dictated on workstation # [id number]
--- NOTE | 2022-04-09 13:45 | Diagnostic Imaging Report ---
INDICATION: Crohn's disease. Study is performed to evaluate for colovesical fistula. Patient ingested barium and serial radiographs of the abdomen and pelvis were obtained. Contrast is seen throughout the stomach with prompt emptying into the proximal small bowel loops. Small bowel loops are normal in caliber. No abnormal dilatation is seen. There appears to be normal progression of contrast through the small bowel loops without evidence of obstruction. There appears to be significant irregularity and thickening involving small bowel loops in the right lower quadrant, correlating with changes noted on CT study in July and August 2021. Several small bowel loops shows luminal narrowing and strictures cannot be entirely excluded. No definite fistulous communication with the urinary bladder is identified however. IMPRESSION: Inflammatory changes in the right lower quadrant involving distal small bowel loops. No definite colovesical fistula is detected. Dictated by: Dictated on workstation # [id number]
== END ==
LOC: RAD 09:02
PROVIDERS: ATTEND Internal Medicine Gastroenterology
DX: K50.00 Crohn's disease of small intestine without complications (principal)
CPT/HCPCS: 74246; 74248

== ENCOUNTER → 2022-04-29 | Outpatient (CLI) | payer BC ==
[~2022-04-29] VITALS: Ht 182.9 cm; Wt 104.5 kg
[~2022-04-29] MED LIST changes: -BARIUM for suspension 96% w/w (Vanilla Silq Medium Density) PO ONE; -BARIUM for suspension 98% w/w (Vanilla Silq High Density) PO ONE
--- NOTE | 2022-04-29 15:24 | Diagnostic Imaging Report ---
EXAMINATION: Abdominal series and chest radiograph. HISTORY: Residual urine, N/V, abd pain, Crohn's, UTI. COMPARISON: None available. FINDINGS: The heart size and pulmonary vasculature are normal. The lungs are clear without consolidation, pleural effusion, or pneumothorax. The osseous structures are intact. There is a moderate amount of gas and stool throughout the colon. Mildly dilated loops of bowel from the mid abdomen measuring up to 5 cm. There are a few air-fluid levels seen. No radiopaque foreign body. The osseous structures are intact. IMPRESSION: Dilated loops of bowel within the abdomen which are concerning for bowel obstruction or ileus. Dictated by: Dictated on workstation # [id number]
[2022-04-29 15:30] VITALS: BP 0/0
== END ==
LOC: RAD 14:14
PROVIDERS: ATTEND Family Medicine
DX: K50.90 Crohn's disease, unspecified, without complications (principal); N39.0 Urinary tract infection, site not specified
CPT/HCPCS: 74022

== ENCOUNTER 2022-05-11 08:29 | Outpatient (CLI) | payer BC ==
[~2022-05-11] VITALS: Ht 182.9 cm; Wt 93.4 kg
[2022-05-11] MEDS ORDERED: PANT40TA52 PO (09:11)
== END 2022-05-11 09:11 | disposition home or self-care (01) ==
LOC: PREOP 08:29
PROVIDERS: ATTEND Surgery
DX: Z01.818 Encounter for other preprocedural examination (principal)

== ENCOUNTER 2022-05-13 09:32 | Day surgery (SDC) | payer BC ==
[~2022-05-13] VITALS: Ht 182.9 cm; Wt 93.4 kg
[2022-05-13] VITALS (7 sets, daily range): BP systolic 112–130; BP diastolic 64–83
[~2022-05-13 09:32] MED LIST changes: +PANT40TA52 PO
[2022-05-13] MEDS ORDERED: LACTATED RINGERS 1,000 ML IV STA (09:43)
[2022-05-13] MEDS ORDERED: HURRICAINE EXT TUBE (BENZOCAINE) XX PRN (09:45)
[2022-05-13] MEDS ORDERED: LIDOCAINE JELLY 2% 6 ML SYRINGE MM PRN (09:45)
[2022-05-13] MEDS ORDERED: PROPOFOL INJECTION 50 ML IV ONE ×2 (10:50→11:23)
[2022-05-13] MEDS ORDERED: MIDAZOLAM 2 MG/2 ML (VERSED) VIAL ONE (10:50)
--- NOTE | 2022-05-13 11:06 | Progress Note-Pre Operative ---
Pre-Operative Progress Note Date of Available H&P: May 13, 2022 Date H&P Reviewed: May 13, 2022 Time H&P Reviewed: 10:00 History & Physical: No changes noted Pre-Operative Diagnosis: hx crohn's, r/o colovesicular fistula, hx GERD TESHA MARCUS MD May 13, 2022 11:06
--- NOTE | 2022-05-13 11:08 | Discharge Inst-Surgical ---
D/C Lap Instructions-ANGELINE Follow Up Activity as tolerated High Fiber Diet 25g or more per day Avoid Alcohol, Caffeine, Spicy [place] and Acid foods. Drink 64 fluid oz or more of fluids per day. Symptoms to Report: Fever over 101 degree F, Nausea/Vomiting If any problems/questions: Contact your physician or go to Emergency Room TESHA MARCUS MD May 13, 2022 11:08
[2022-05-13] MEDS ORDERED: ONDANSETRON 4 MG (ZOFRAN) ORAL DISSOLVE TAB PO PRN (11:15)
[2022-05-13] MEDS ORDERED: ONDANSETRON 4 MG/2 ML (SDV) Z0FRAN IVP PRN (11:15)
--- NOTE | 2022-05-13 12:49 | Progress Note-Post Operative ---
Post-Operative Progess Note Surgeon (s)/Customs Patrol Officer (s) Surgeon TESHA MARCUS MD Customs Patrol Officer: none Pre-Operative Diagnosis hx crohn's, r/o colovesicular fistula, hx GERD Post-Operative Diagnosis chronic perianal crohn's manifestations, chronic active crohn's proximal rectum and cecum, no fistula. reflux esophagitis(stage B), small HH(1cm), mild-moderate gastritis. Procedure & Operative Findings Date of Procedure 05/13/22 Procedure Performed/Findings EGD with bx. colonoscopy with bx. Anesthesia Type mac Estimated Blood Loss Estimated blood loss (mL): minimal Specimens/Packing Specimens Removed ge jxn, antrum, cecum, rectum TESHA MARCUS MD May 13, 2022 12:49
--- NOTE | 2022-05-13 14:34 | Anesthesia-General Post-Op ---
MAC Patient Condition Mental Status/LOC: Same as Preop Cardiovascular: Satisfactory Nausea/Vomiting: Absent Respiratory: Satisfactory Pain: Controlled Complications: Absent Post Op Complications Complications None Follow Up Care/Instructions Patient Instructions None needed. Anesthesiology Discharge Order Discharge Order Patient is doing well, no complaints, stable vital signs, no apparent adverse anesthesia problems. No complications reported per nursing. VAMSHI HUYNH CRNA May 13, 2022 14:34
--- NOTE | 2022-05-13 21:02 | OPERATIVE REPORT ---
DATE OF SERVICE: 05/13/2022 ATTENDING PRIMARY CARE: Dr. Douglas Roberts. PREOPERATIVE DIAGNOSES: Gastroesophageal reflux disease, history of Crohn's disease, rule out colovesicular fistula. POSTOPERATIVE DIAGNOSES: Reflux esophagitis, Catron grade B, small hiatal hernia, 1 cm in size, mild to moderate gastritis, normal duodenum, chronic perianal Crohn's manifestations, no active fistulas, prostate gland was normal. There was no open fistulous tract that could be identified that would indicate any communication within other hollow viscus. There were two areas of mucosal inflammation, one at the proximal rectum and another patch of chronic active Crohn's disease at the cecum. PROCEDURE PERFORMED: EGD with biopsy, colonoscopy with biopsy. SURGEON: Nereida Seo MD. ANESTHESIA: Monitored anesthesia care. ESTIMATED BLOOD LOSS: Minimal. FINDINGS: Reflux esophagitis, Catron grade B, small hiatal hernia, 1 cm in size, mild to moderate gastritis, normal duodenum, chronic perianal Crohn's manifestations, no active fistulas, prostate gland was normal. DISPOSITION: The patient tolerated the procedure well. INDICATIONS: The patient is a 27-year-old male known to us. He was diagnosed with Crohn's disease in 2016 and has been on a multitude of different medications and is currently on Entyvio infusions every 8 weeks and he states that this has been the most effective in reducing his symptomatology of Crohn's disease. He does have known perianal manifestations and did undergo a Seton suture placement and eventual closure of the fistula. The patient reports that since being on Entyvio, his crampy abdominal pain and loose stools have improved dramatically; however, he does report approximately four times a month, he will notice a slight increased urgency to micturate and would also notice a sedimentary debris as well as air upon micturition, which may indicate some form of enterovesicular fistula. He also has had worsening issues with gastroesophageal reflux disease recently. DESCRIPTION OF PROCEDURE: The patient was brought to the endoscopy suite, laid in the left lateral decubitus position. After adequate IV pain and sedative medications and monitored anesthesia care, the mouthpiece was applied. The endoscope was placed in the mouth, visualizing the pharynx and hypopharyngeal region. Vocal cords, epiglottis and vallecula identified and appeared to be normal. The endoscope was then gently intubated at the esophageal opening and esophagus insufflated. The endoscope was then advanced through the first, second and third portion of the esophagus at the level of the GE junction, a reflux esophagitis, Catron grade B identified. Biopsy was taken with forceps with visualization of good hemostasis. The endoscope was then advanced into the stomach and endoscope retroflexed, visualizing a small hiatal hernia approximately 1 cm in size. There was a mild to moderate gastritis, which was diffuse throughout the stomach. No formal ulcerations, polyps, or any neoplasms. A biopsy was taken of the antrum to rule out H. pylori with visualization of good hemostasis. The endoscope was then advanced to the pylorus and the first and second portion of the duodenum, which appeared normal with no duodenal inflammatory changes. Endoscope was then slowly withdrawn while taking a second look and suctioning of residual air with no additional findings. A digital rectal examination was performed, which revealed chronic perianal Crohn's manifestations; however, no active fistula tracts nor any abscesses identified. Normal sphincter tone was felt and there were no palpable masses. Prostate gland was palpable and appeared normal. The endoscope was then intubated into the anus and rectum gently insufflated. At the proximal portion of the rectum was a patch of chronic active Crohn's disease and multiple biopsies were taken with forceps with visualization of good hemostasis. There was no discrete identifiable fistula or any drainage sinus that was identified within this region. We then proceeded through the sigmoid and descending as well as the ascending colon. Another area of chronic active Crohn's was identified of the cecum and multiple biopsies were taken and again no fistulous tracts or any abnormal drainage patterns identified. The endoscope was then slowly withdrawn while taking a second look and suctioning of residual air with no additional findings. The patient tolerated the procedure well. We will recommend he continue with medical management with his sales lead and continuation of Entyvio. We will see if this issue does continue with his sediment and air in his urine versus closed on its own. If this does not, he may need at some point, an exploration to identify the source and then source control, which would encompass resecting the fistula and repairing the portion of the gastrointestinal tract as well as the bladder. Job ID: [id number] DocumentID: [id number] Dictated Date: 05/13/2022 12:07:00 Baggage Porter Head Date: 05/13/2022 21:00:44 Dictated By: MD VJ SAMS
== END 2022-05-13 13:11 | disposition home or self-care (01) ==
LOC: ENDO 09:32
PROVIDERS: ATTEND Surgery
DX: K21.00 Gastro-esophageal reflux disease with esophagitis, without bleeding (principal); K44.9 Diaphragmatic hernia without obstruction or gangrene; K29.70 Gastritis, unspecified, without bleeding; K50.10 Crohn's disease of large intestine without complications; K52.9 Noninfective gastroenteritis and colitis, unspecified; K29.50 Unspecified chronic gastritis without bleeding; K31.A15 Gastric intestinal metaplasia without dysplasia, involving multiple sites; Z79.899 Other long term (current) drug therapy; N39.0 Urinary tract infection, site not specified; Z28.310 Unvaccinated for COVID-19

== ENCOUNTER 2022-05-28 06:36 | Outpatient (RCR) | payer BC ==
[2022-05-28] MEDS ORDERED: VEDOLIZUMAB 300 MG/NS 250 ML IVPB IV SCH ×2 (07:00)
[2022-05-28 07:49] VITALS: BP 112/81
== END 2022-06-19 | disposition home or self-care (01) ==
LOC: SDC 06:36
PROVIDERS: ATTEND Internal Medicine Gastroenterology
DX: K50.919 Crohn's disease, unspecified, with unspecified complications (principal)
CPT/HCPCS: 96365; J3380

== ENCOUNTER 2022-07-23 06:40 | Outpatient (RCR) | payer BC ==
[~2022-07-23] VITALS: Wt 93.4 kg
[2022-07-23] MEDS ORDERED: VEDOLIZUMAB 300 MG/NS 250 ML IVPB IV ONE ×2 (07:00)
[2022-07-23 07:12] VITALS: BP 111/76
== END 2022-08-19 | disposition home or self-care (01) ==
LOC: SDC 06:40
PROVIDERS: ATTEND Internal Medicine Gastroenterology
DX: K50.919 Crohn's disease, unspecified, with unspecified complications (principal)
CPT/HCPCS: 96365; J3380

== ENCOUNTER → 2022-09-16 | Outpatient (CLI) | payer BC ==
[~2022-09-16] MED LIST changes: +CATHETER FLUSH 10 ML SYR IV PRN; +HOLD METFORMIN - RECEIVED CONTRAST 20 ML VIAL IV SCH; +IOHEXOL 350 MG/ML 100 ML (OMNIPAQUE 350) VIAL IV ONE; +NS 100 ML (IVPB) BAG IV ONE
--- NOTE | 2022-09-16 17:49 | Diagnostic Imaging Report ---
EXAMINATION: CT abdomen and pelvis with intravenous contrast. TECHNIQUE: Multiple contiguous axial images were obtained through the abdomen and pelvis after the uneventful administration of intravenous contrast. All CT scans use one or more of the following dose optimizing techniques: automated exposure control, MA and/or KvP adjustment based on patient size and exam type or iterative reconstruction. HISTORY: CROHN'S Disease ABD PAIN COMPARISON: 08/20/2021 FINDINGS: Lung bases: The lung bases are clear. Solid organs: The liver is normal without focal lesion. The gallbladder is normal. There is no biliary ductal dilation. Pancreas is normal. Spleen is normal. Adrenal glands are normal. The kidneys are normal without hydronephrosis. Bowel: There are multifocal areas of small bowel wall thickening greatest within the distal small bowel. Surgical changes of the right colon and small bowel. There is fistula and perforation which has a loculated appearance and extends inferiorly and superiorly. The largest fluid collection within the left anterior abdomen measures 18.6 x 4.4 cm. There is a fistulous tract which extends near the urinary bladder. Likely areas of tethering and fistula within the right lower quadrant. Peritoneum: There are few prominent retroperitoneal and mesenteric lymph nodes which are likely reactive. Vasculature: Normal without aneurysm. Musculoskeletal: No suspicious osseous lesion or compression fracture. Pelvis: The prostate gland is normal. There is asymmetric posterior bladder wall thickening. IMPRESSION: 1. Multifocal areas of small bowel and colon wall thickening and inflammatory stranding compatible with inflammatory bowel disease and history of Crohn's disease. 2. There appears to be perforation of the distal small bowel/proximal right colon with a loculated fluid collections that extend inferiorly and superiorly/anteriorly. The largest measures up to 18.6 x 4.4 cm. 3. Multiple areas of bowel tethering and likely fistulization within the right lower quadrant. 4. Concern for fistulous tract to the urinary bladder with asymmetric posterior bladder wall thickening. Dictated by: Dictated on workstation # [id number]
== END ==
LOC: RAD 17:01
PROVIDERS: ATTEND Clinical Nurse Specialist Oncology
DX: K50.814 Crohn's disease of both small and large intestine with abscess (principal); G89.18 Other acute postprocedural pain; D72.829 Elevated white blood cell count, unspecified
CPT/HCPCS: 74177

== ENCOUNTER → 2022-09-23 | Outpatient (CLI) | payer BC ==
[2022-09-23 18:22] LABS: HEMATOCRIT 31 % (40-54); HEMOGLOBIN 8.9 g/dL (13.3-17.7); MEAN CORPUSCULAR HEMOGLOBIN 20 pg (25-34); MEAN CORPUSCULAR HGB CONC 29 g/dL (32-36); MEAN CORPUSCULAR VOLUME 69 fL (80-99); MEAN PLATELET VOLUME 8.8 fL (9.0-12.2); PLATELET COUNT 634 10^3/uL (130-400); WHITE BLOOD COUNT 9.3 10^3/uL (4.3-11.0)
--- NOTE | 2022-09-23 19:14 | Diagnostic Imaging Report ---
PROCEDURE: CT abdomen and pelvis with contrast. TECHNIQUE: Multiple contiguous axial images were obtained through the abdomen and pelvis after administration of intravenous contrast. Auto Exposure Controls were utilized during the CT exam to meet ALARA standards for radiation dose reduction. All CT scans use one or more of the following dose optimizing techniques: automated exposure control, MA and/or KvP adjustment based on patient size and exam type or iterative reconstruction. INDICATION: K50.814. Crohn's disease, pain COMPARISON: 09/16/2022. FINDINGS: The visualized lung bases are clear. Hypodensity adjacent to the falciform ligament within the liver is again identified and similar to the prior examination. This is felt to relate to a transient hepatic arterial defect versus focal fatty deposition. The liver is otherwise unremarkable. The spleen is unremarkable. The adrenal glands are unremarkable. The pancreas is unremarkable. The gallbladder is unremarkable. The kidneys are unremarkable. No aneurysmal dilatation of the abdominal aorta. A pigtail drainage catheter is identified entering via the left anterior abdomen. There has been near complete resolution of previously noted focal fluid collection within the left anterior abdomen at the site of the pigtail catheter. Additionally, previously noted focal gas and fluid collection within the right lower abdomen extending to the midline pelvis is noted, though this appears significantly improved though not completely resolved. The largest collection now appears to demonstrate predominantly fluid and measures 2.4 x 1.6 cm when previously it measured at least 6.5 x 4.3 cm. The additional apparently connecting gas and fluid collection within the midline pelvis has also decreased in size since the prior examination. This appears to abut and extend to the urinary bladder with significant mural thickening of the urinary bladder superiorly. Additional vertically oriented focal fluid collection abutting the posterior aspect of the urinary bladder extending superiorly is present having slightly decreased in size since the prior examination measuring 1.7 x 1.2 x 4.1 cm when previously measured 2.4 x 1.7 x 6.2 cm. Additional small gas collection within the right abdomen measures 1.3 cm when previously it measured 3.6 cm. No definite new focal gas and fluid collection. Multifocal regions of mural thickening are present involving the bowel, including the sigmoid colon, which appears slightly improved since the prior exam. Mild mural thickening involving the transverse and ascending colon is again seen, appearing similar to the prior examination. Significant mural thickening and fat stranding associated with the distal small bowel is again identified, appearing slightly improved since the prior exam. No evidence of bowel obstruction. No additional free air. Adenopathy within the abdomen is again identified, though appearing improved since the prior examination. Small amount of free fluid. Osseous structures appear stable without acute osseous abnormality. IMPRESSION: Multifocal gas and fluid collections throughout the abdomen and pelvis appear improved since the prior examination, felt to relate to improving abscesses and perforation with interval placement of a pigtail catheter within the left anterior abdomen. Persistent fluid collections extending from the bowel towards the urinary bladder remain with persistent thickening and irregularity of the urinary bladder wall, which is concerning for fistulous connection to the urinary bladder. Recommend correlation. Significant inflammatory stranding and mural thickening associated with scattered loops of large and small bowel, felt to relate to underlying inflammatory bowel disease and Crohn's disease. This is associated with several areas of presumed bowel tethering within the right lower quadrant in particular. Slightly improved adenopathy throughout the abdomen and pelvis. Additional findings as above. Dictated by: Dictated on workstation # [id number]
== END ==
LOC: RAD 17:38
PROVIDERS: ATTEND Surgery
DX: K50.814 Crohn's disease of both small and large intestine with abscess (principal); D72.829 Elevated white blood cell count, unspecified; G89.18 Other acute postprocedural pain; R59.0 Localized enlarged lymph nodes
CPT/HCPCS: 36415; 74177; 85027

== ENCOUNTER → 2022-10-27 | Outpatient (CLI) | payer BC, OTHER ==
[~2022-10-27] MED LIST changes: +BARIUM SUSPENSION 2.1% (VANILLA SILQ) 450 ML PO ONE; -CATHETER FLUSH 10 ML SYR IV PRN; -HOLD METFORMIN - RECEIVED CONTRAST 20 ML VIAL IV SCH
--- NOTE | 2022-10-28 04:47 | Diagnostic Imaging Report ---
PROCEDURE: CT abdomen and pelvis with contrast. TECHNIQUE: Multiple contiguous axial images were obtained through the abdomen and pelvis after administration of intravenous contrast. Auto Exposure Controls were utilized during the CT exam to meet ALARA standards for radiation dose reduction. All CT scans use one or more of the following dose optimizing techniques: automated exposure control, MA and/or KvP adjustment based on patient size and exam type or iterative reconstruction. INDICATION: Left upper quadrant abdominal pain. COMPARISON: 09/23/2022 FINDINGS: There is dependent atelectasis in the lung bases. The heart is normal in size. There is no pericardial effusion. The liver demonstrates no focal lesions. The spleen is mildly large measuring 14.3 cm in length. The pancreas appears normal. The adrenal glands are normal. The kidneys demonstrate no focal lesions. There is a pigtail catheter in the anterior left abdomen. There is minimal surrounding fluid at the pigtail portion. There is a small fluid collection in the anterior left abdomen measuring 3.8 x 2.4 cm in size (image 77 series 2). There may be an additional smaller fluid collection in the anterior left abdomen measuring 1.4 x 1.3 cm in size (image 92 series 2). There is moderate mesenteric edema in the abdomen. There is a small amount of ascites. There is marked wall thickening of multiple loops of small bowel, particularly in the left upper abdomen. This appears increased since the prior exam. There is wall thickening and irregularity at the cecum. This appears to have a fistula extending inferiorly toward the anterior abdominal wall as well as possibly the dome of the urinary bladder. The urinary bladder demonstrates marked wall thickening and surrounding edema. There is a small pocket of fluid just posterior to the urinary bladder which measures 1.5 cm, appears mildly decreased in size since the prior exam. The other fluid collection seen inferior to the cecum has a small amount of air but is significantly decreased in size since the prior study, measuring less than a centimeter in size. No free air is seen in the abdomen. No acute osseous abnormality is identified. IMPRESSION: 1. Marked wall thickening of the cecum with a tract extending toward the anterior abdominal wall as well as the dome of the inflamed urinary bladder, with 2 associated fluid collections which appear decreased in size since 09/23/2022. 2. Two fluid collections in the left anterior abdomen appear new or increased since the prior study, concerning for abscess. The pigtail catheter is in stable position with minimal surrounding fluid. 3. Markedly increased inflammatory changes in the small bowel of the left upper abdomen, consistent with the history of Crohn's disease. Dictated by: Dictated on workstation # [id number]
== END ==
LOC: RAD 19:14
PROVIDERS: ATTEND Surgery
DX: K31.89 Other diseases of stomach and duodenum (principal)
CPT/HCPCS: 74177

== ENCOUNTER 2022-10-28 07:07 | Outpatient (RCR) | payer BC, OTHER ==
[~2022-10-28] VITALS: Wt 93.4 kg
[~2022-10-28 07:07] MED LIST changes: -BARIUM SUSPENSION 2.1% (VANILLA SILQ) 450 ML PO ONE; -IOHEXOL 350 MG/ML 100 ML (OMNIPAQUE 350) VIAL IV ONE; -NS 100 ML (IVPB) BAG IV ONE
[2022-10-28 07:15] VITALS: BP 125/89
[2022-10-28] MEDS ORDERED: VEDOLIZUMAB 300 MG/NS 250 ML IVPB IV SCH ×2 (07:30)
== END 2022-11-17 | disposition home or self-care (01) ==
LOC: SDC 07:07
PROVIDERS: ATTEND Internal Medicine Gastroenterology
DX: K50.919 Crohn's disease, unspecified, with unspecified complications (principal)
CPT/HCPCS: 96365; J3380

== ENCOUNTER → 2022-10-29 | Outpatient (CLI) | payer OTHER ==
[2022-10-29 12:34] LABS: HEMATOCRIT 34 % (40-54); HEMOGLOBIN 10.1 g/dL (13.3-17.7); MEAN CORPUSCULAR HEMOGLOBIN 20 pg (25-34); MEAN CORPUSCULAR HGB CONC 30 g/dL (32-36); MEAN CORPUSCULAR VOLUME 67 fL (80-99); MEAN PLATELET VOLUME 9.3 fL (9.0-12.2); PLATELET COUNT 419 10^3/uL (130-400); WHITE BLOOD COUNT 10.1 10^3/uL (4.3-11.0)
[2022-10-29 12:47] LABS: ALBUMIN 3.8 GM/DL (3.2-4.5); POTASSIUM 3.4 MMOL/L (3.6-5.0)
[2022-10-29 12:48] LABS: CALCIUM 9.7 MG/DL (8.5-10.1)
[2022-10-29 12:50] LABS: TOTAL PROTEIN 8.3 GM/DL (6.4-8.2)
[2022-10-29 12:51] LABS: BILIRUBIN,TOTAL 0.4 MG/DL (0.1-1.0)
[2022-10-29 12:53] LABS: CREATININE SERUM 0.92 MG/DL (0.60-1.30); PHOSPHORUS 3.3 MG/DL (2.3-4.7)
== END ==
LOC: LAB 12:18
PROVIDERS: ATTEND Nurse Practitioner Family
DX: K50.90 Crohn's disease, unspecified, without complications (principal)
CPT/HCPCS: 36415; 80053; 83735; 84100; 85027

== ENCOUNTER → 2022-11-09 | Outpatient (CLI) | payer OTHER ==
[~2022-11-09] MED LIST changes: +BARIUM SUSPENSION 2.1% (VANILLA SILQ) 450 ML PO ONE; +CATHETER FLUSH 10 ML SYR IV PRN; +IOHEXOL 350 MG/ML 100 ML (OMNIPAQUE 350) VIAL IV ONE; +NS 100 ML (IVPB) BAG IV ONE
--- NOTE | 2022-11-09 20:39 | Diagnostic Imaging Report ---
PROCEDURE: CT abdomen and pelvis with contrast. TECHNIQUE: Multiple contiguous axial images were obtained through the abdomen and pelvis after administration of intravenous contrast. Auto Exposure Controls were utilized during the CT exam to meet ALARA standards for radiation dose reduction. All CT scans use one or more of the following dose optimizing techniques: automated exposure control, MA and/or KvP adjustment based on patient size and exam type or iterative reconstruction. INDICATION: Crohn's disease COMPARISON: 10/27/2022 FINDINGS: The visualized lung bases are clear. The liver and spleen are unremarkable. The adrenal glands are unremarkable. The pancreas is unremarkable. The gallbladder is predominantly decompressed, but otherwise unremarkable. The bilateral kidneys are unremarkable. No aneurysmal dilatation of the abdominal aorta. Pigtail catheter is again identified within the anterior left abdominal wall. No significant fluid collection about the pigtail catheter which is in place. Mild inflammatory stranding and mural thickening is noted involving the mid sigmoid colon. Linear soft tissue regions are seen connecting loops of colon and small bowel. These also track towards the dome of the urinary bladder with associated mural thickening of the urinary bladder superiorly. Postsurgical changes involving the bowel within the right lower quadrant is again noted. Inflammatory stranding within the right lower quadrant near the postsurgical changes appears slightly improved since the prior examination. Mural thickening within the small bowel within the right lower quadrant near the postsurgical changes is again seen, slightly improved since the prior examination. Mural thickening within multiple loops of small bowel within the left upper abdomen with adjacent inflammatory stranding is again identified, improved since the prior exam. Previously noted focal fluid collection within the anterior left upper abdomen has essentially resolved since the prior exam. No new focal fluid collection. No bowel obstruction. Prominent mesenteric lymph nodes again seen. Free fluid within the abdomen and pelvis has improved since the prior examination. No free air. No acute osseous abnormality. Sclerotic focus within the medial left femoral neck is unchanged since 04/27/2016. IMPRESSION: Scattered regions of extensive mural thickening and inflammatory stranding associated with both large and small bowel described above is concerning for Crohn's disease. Previously noted fluid collections appear improved and essentially resolved since the prior examination. Additionally, overall appearance of the Crohn's disease appears slightly improved from the prior examination. Linear densities within the lower pelvis tracking from multiple loops of bowel as well as extending to the urinary bladder. Findings are concerning for fistula formation. Scarring and adhesions felt less likely. Pigtail catheter remains within the left anterior abdominal wall though no significant fluid collection is seen about the catheter. Additional findings as above. Dictated by: Dictated on workstation # [id number]
== END ==
LOC: RAD 18:11
PROVIDERS: ATTEND Surgery
DX: K50.814 Crohn's disease of both small and large intestine with abscess (principal); L02.211 Cutaneous abscess of abdominal wall
CPT/HCPCS: 74177

== ENCOUNTER 2022-12-23 06:59 | Outpatient (RCR) | payer OTHER ==
[~2022-12-23] VITALS: Ht 182.8 cm; Wt 93.4 kg
[~2022-12-23 06:59] MED LIST changes: -BARIUM SUSPENSION 2.1% (VANILLA SILQ) 450 ML PO ONE; -CATHETER FLUSH 10 ML SYR IV PRN; -IOHEXOL 350 MG/ML 100 ML (OMNIPAQUE 350) VIAL IV ONE; -NS 100 ML (IVPB) BAG IV ONE
[2022-12-23] MEDS ORDERED: VEDOLIZUMAB 300 MG/NS 250 ML IVPB IV SCH ×2 (07:15)
[2022-12-23 07:30] VITALS: BP 108/74
== END 2023-01-17 | disposition home or self-care (01) ==
LOC: SDC 06:59
PROVIDERS: ATTEND Internal Medicine Gastroenterology
DX: K50.919 Crohn's disease, unspecified, with unspecified complications (principal)
CPT/HCPCS: 96365; J3380

== ENCOUNTER 2023-02-19 06:44 | Outpatient (RCR) | payer OTHER ==
[2023-02-19 07:15] VITALS: BP 112/76
[2023-02-19] MEDS ORDERED: VEDOLIZUMAB 300 MG/NS 250 ML IVPB IV SCH ×2 (07:15)
== END 2023-03-19 | disposition home or self-care (01) ==
LOC: SDC 06:44
PROVIDERS: ATTEND Internal Medicine Gastroenterology
DX: K50.919 Crohn's disease, unspecified, with unspecified complications (principal)
CPT/HCPCS: 96365; J3380

== ENCOUNTER 2023-04-16 06:48 | Outpatient (RCR) | payer OTHER ==
[~2023-04-16] VITALS: Ht 182.9 cm; Wt 94.6 kg
[2023-04-16 07:22] VITALS: BP 110/69
[2023-04-16] MEDS ORDERED: VEDOLIZUMAB 300 MG/NS 250 ML IVPB IV SCH ×2 (07:30)
== END 2023-04-19 ==
LOC: SDC 06:48
PROVIDERS: ATTEND Internal Medicine Gastroenterology
DX: K50.919 Crohn's disease, unspecified, with unspecified complications (principal)
CPT/HCPCS: 96365; J3380

== ENCOUNTER → 2023-05-31 | Outpatient (CLI) | payer OTHER ==
[~2023-05-31] VITALS: Ht 182.9 cm; Wt 94.6 kg
[~2023-05-31] MED LIST changes: +D5W IV SCH; +[UNRECOGNIZED DRUG - OTHER] IV SCH
[2023-05-31 07:54] VITALS: BP 122/82
== END ==
LOC: SDC 06:48
PROVIDERS: ATTEND Internal Medicine Gastroenterology
DX: K50.90 Crohn's disease, unspecified, without complications (principal)
CPT/HCPCS: 96365

== ENCOUNTER 2023-07-02 06:23 | Outpatient (RCR) | payer OTHER ==
[~2023-07-02 06:23] MED LIST changes: +D5W IV ONE; -D5W IV SCH; +[UNRECOGNIZED DRUG - OTHER] IV ONE; -[UNRECOGNIZED DRUG - OTHER] IV SCH
[2023-07-02 06:45] VITALS: BP 123/63
[2023-07-02] MEDS ORDERED: D5W IV ONE ×2 (06:45)
[2023-07-02] MEDS ORDERED: [UNRECOGNIZED DRUG - OTHER] IV ONE ×2 (06:45)
== END 2023-07-20 | disposition home or self-care (01) ==
LOC: SDC 06:23
PROVIDERS: ATTEND Internal Medicine Gastroenterology
DX: K50.90 Crohn's disease, unspecified, without complications (principal)
CPT/HCPCS: 96365

== ENCOUNTER 2023-08-06 06:34 | Outpatient (RCR) | payer OTHER ==
[~2023-08-06] VITALS: Wt 94.6 kg
[~2023-08-06 06:34] MED LIST changes: -D5W IV ONE; -[UNRECOGNIZED DRUG - OTHER] IV ONE
[2023-08-06] MEDS ORDERED: [UNRECOGNIZED DRUG - OTHER] IV ONE ×2 (06:45)
[2023-08-06] MEDS ORDERED: D5W IV ONE ×2 (06:45)
[2023-08-06 07:00] VITALS: BP 114/72
== END 2023-08-19 | disposition home or self-care (01) ==
LOC: SDC 06:34
PROVIDERS: ATTEND Internal Medicine Gastroenterology
DX: K50.90 Crohn's disease, unspecified, without complications (principal)
CPT/HCPCS: 96365